=== PATIENT | female | born 1960 | race Caucasian/White ===

== ENCOUNTER 2022-11-14 09:19 | Outpatient (CLI) | payer MEDICAID | END 2022-11-14 09:20 | disposition short-term general hospital (02) | LOC: EMS 09:19 | DX: R06.02 Shortness of breath (principal); I48.91 Unspecified atrial fibrillation; E11.65 Type 2 diabetes mellitus with hyperglycemia | CPT/HCPCS: A0425; A0427 ==

== ENCOUNTER 2025-05-04 16:06 | Inpatient (IN) ==
[2025-05-04] MEDS: HYDROmorphone 0.5 MG/0.5 ML SYRINGE IVP STA (16:32)
[2025-05-04 16:42] LABS: HCT - HEMATOCRIT 43.7 % (37.0-47.0); HGB - HEMOGLOBIN 14.4 g/dL (12.0-16.0); MEAN PLATELET VOLUME 8.7 fL (7.9-10.8); NRBC ABSOLUTE COUNT (AUTO) 0.00 x10^3/uL; NUCLEATED RED BLOOD CELLS AUTO 0.0 /100WBC; PLT - PLATELET COUNT 283 10^3/uL (130-450); RED CELL DISTRIBUTION WIDTH 13.8 % (12.0-15.0)
[2025-05-04 16:47] LABS: INR 1.2 (0.8-1.2); PT - PROTHROMBIN TIME 13.3 secs (9.9-12.6)
[2025-05-04 16:56] LABS: ALT ALANINE AMINOTRANSFERASE 26 IU/L (10-60); AST ASPARTATE AMINOTRANSFERASE 50 IU/L (10-42); BUN - BLOOD UREA NITROGEN 15 mg/dL (6-20); CARBON DIOXIDE - CO2 28 mmol/L (21-32); CREATININE 0.9 mg/dL (0.6-1.3); ETOH - ETHANOL < 10.0 mg/dL; GFR - MDRD 63 (>89)
[2025-05-04] MEDS: HYDROmorphone 1 MG/ML CARPUJECT IVP STA (17:27)
--- OUTSIDE RECORDS SUMMARY | 2025-05-04 17:29 | EXTERNAL MEDICAL SUMMARY RPT | Continuity of Care Document ---
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 Name Role Phone Devin Amaya Unavailable Unavailable Allergies and Intolerances date description facility reaction severity 2025-04-16 10:17:15 UNK [facility] (no reactio n) (no severity) Medications date description facility 2025-03-13 00:00 Clonazepam [facility] 2025-04-30 00:00 Magnesium Hydroxide [facility] 2025-02-15 00:00 Amiodarone [facility] 2025-04-29 00:00 Levothyroxine [facility] Problems date description facility 2025-04-10 09:42 Type 2 diabetes donald itus with diabetic neuropathy, [facility] 2025-04-10 09:42 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 [facility] 2025-04-10 11:16 Type 2 diabetes donald itus with diabetic neuropathy, [facility] 2025-04-10 11:16 jail (current) use of [facility] 2025-04-10 11:20 Type 2 diabetes donald itus with diabetic neuropathy, [facility] 2025-04-10 11:20 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 [facility] 2025-04-10 22:03 Type 2 diabetes donald itus with diabetic neuropathy, [facility] 2025-04-10 22:03 jail (current) use of [facility] Results/Labs test date facility value unit notes Result panel 1 Specimen collection (procedure) (no date) [facility] (missing) (missing) (missing) Result panel 2 Specimen collection (procedure) (no date) [facility] (missing) (missing) (missing) Result panel 3 Specimen collection (procedure) (no date) [facility] (missing) (missing) (missing) Result panel 4 Specimen collection (procedure) (no date) [facility] (missing) (missing) (missing) Result panel 5 Specimen collection (procedure) (no date) [facility] ([facility]) (missing) (missing) Result panel 6 Specimen collection (procedure) (no date) [facility] (missing) (missing) (missing) Result panel 7 Specimen collection (procedure) (no date) [facility] (missing) (missing) (missing) Result panel 8 Specimen collection (procedure) (no date) [facility] (missing) (missing) (missing) Result panel 9 Specimen collection (procedure) (no date) [facility] (missing) (missing) (missing) Result panel 10 Specimen collection (procedure) (no date) [facility] (missing) (missing) (missing) Result panel 11 Specimen collection (procedure) (no date) [facility] (missing) (missing) (missing) Result panel 12 Specimen collection (procedure) (no date) [facility] (missing) (missing) (missing) Result panel 13 Specimen collection (procedure) (no date) [facility] (missing) (missing) (missing) Result panel 14 Specimen collection (procedure) (no date) [facility] (missing) (missing) (missing) Result panel 15 Specimen collection (procedure) (no date) [facility] (missing) (missing) (missing) Result panel 16 Specimen collection (procedure) (no date) [facility] (missing) (missing) (missing) Result panel 17 Specimen collection (procedure) (no date) [facility] (missing) (missing) (missing) Result panel 18 Specimen collection (procedure) (no date) [facility] (missing) (missing) (missing) Result panel 19 Specimen collection (procedure) (no date) [facility] (missing) (missing) (missing) Result panel 20 Specimen collection (procedure) (no date) [facility] (missing) (missing) (missing) Result panel 21 Specimen collection (procedure) (no date) [facility] (missing) (missing) (missing) Result panel 22 Specimen collection (procedure) (no date) [facility] (missing) (missing) (missing) Result panel 23 Specimen collection (procedure) (no date) [facility] (missing) (missing) (missing) Result panel 24 Specimen collection (procedure) (no date) [facility] (missing) (missing) (missing) Result panel 25 Specimen collection (procedure) (no date) [facility] (missing) (missing) (missing) Result panel 26 Specimen collection (procedure) (no date) [facility] (missing) (missing) (missing) Result panel 27 Specimen collection (procedure) (no date) [facility] (missing) (missing) (missing) Result panel 28 Specimen collection (procedure) (no date) [facility] (missing) (missing) (missing) Result panel 29 Specimen collection (procedure) (no date) [facility] (missing) (missing) (missing) Result panel 30 Specimen collection (procedure) (no date) [facility] (missing) (missing) (missing) Result panel 31 Specimen collection (procedure) (no date) [facility] (missing) (missing) (missing) Result panel 32 Specimen collection (procedure) (no date) [facility] (missing) (missing) (missing) Result panel 33 Specimen collection (procedure) (no date) [facility] (missing) (missing) (missing) Result panel 34 Specimen collection (procedure) (no date) [facility] (missing) (missing) (missing) Result panel 35 Specimen collection (procedure) (no date) [facility] (missing) (missing) (missing) Result panel 36 Specimen collection (procedure) (no date) [facility] (missing) (missing) (missing) Result panel 37 Specimen collection (procedure) (no date) [facility] (missing) (missing) (missing) Result panel 38 Specimen collection (procedure) (no date) [facility] (missing) (missing) (missing) Result panel 39 Specimen collection (procedure) (no date) [facility] (missing) (missing) (missing) Result panel 40 Specimen collection (procedure) (no date) [facility] (missing) (missing) (missing) Result panel 41 Specimen collection (procedure) (no date) [facility] (missing) (missing) (missing) Result panel 42 Specimen collection (procedure) (no date) [facility] (missing) (missing) (missing) Result panel 43 Specimen collection (procedure) (no date) [facility] (missing) (missing) (missing) Result panel 44 Specimen collection (procedure) (no date) [facility] (missing) (missing) (missing) Result panel 45 Specimen collection (procedure) (no date) [facility] (missing) (missing) (missing) Result panel 46 Specimen collection (procedure) (no date) [facility] (missing) (missing) (missing) Result panel 47 Specimen collection (procedure) (no date) [facility] (missing) (missing) (missing) Result panel 48 Specimen collection (procedure) (no date) [facility] (missing) (missing) (missing) Result panel 49 Specimen collection (procedure) (no date) [facility] (missing) (missing) (missing) Result panel 50 Specimen collection (procedure) (no date) [facility] (missing) (missing) (missing) Result panel 51 Specimen collection (procedure) (no date) [facility] (missing) (missing) (missing) Result panel 52 Specimen collection (procedure) (no date) [facility] (missing) (missing) (missing) Result panel 53 Specimen collection (procedure) (no date) [facility] (missing) (missing) (missing) Result panel 54 Specimen collection (procedure) (no date) [facility] (missing) (missing) (missing) Result panel 55 Specimen collection (procedure) (no date) [facility] (missing) (missing) (missing) Result panel 56 Specimen collection (procedure) (no date) [facility] (missing) (missing) (missing) Result panel 57 Specimen collection (procedure) (no date) [facility] (missing) (missing) (missing) Result panel 58 Specimen collection (procedure) (no date) [facility] (missing) (missing) (missing) Result panel 59 Specimen collection (procedure) (no date) [facility] (missing) (missing) (missing) Result panel 60 Specimen collection (procedure) (no date) [facility] (missing) (missing) (missing) Result panel 61 Specimen collection (procedure) (no date) [facility] (missing) (missing) (missing) Result panel 62 Specimen collection (procedure) (no date) [facility] (missing) (missing) (missing) Result panel 63 Specimen collection (procedure) (no date) [facility] (missing) (missing) (missing) Result panel 64 Specimen collection (procedure) (no date) [facility] (missing) (missing) (missing) Result panel 65 Specimen collection (procedure) (no date) [facility] (missing) (missing) (missing) Result panel 66 Specimen collection (procedure) (no date) [facility] (missing) (missing) (missing) Result panel 67 Specimen collection (procedure) (no date) [facility] (missing) (missing) (missing) Result panel 68 Specimen collection (procedure) (no date) [facility] (missing) (missing) (missing) Result panel 69 Specimen collection (procedure) (no date) [facility] (missing) (missing) (missing) Result panel 70 Specimen collection (procedure) (no date) [facility] (missing) (missing) (missing) Result panel 71 Specimen collection (procedure) (no date) [facility] (missing) (missing) (missing) Result panel 72 Specimen collection (procedure) (no date) [facility] (missing) (missing) (missing) Result panel 73 Specimen collection (procedure) (no date) [facility] (missing) (missing) (missing) Result panel 74 Specimen collection (procedure) (no date) [facility] (missing) (missing) (missing) Result panel 75 Specimen collection (procedure) (no date) [facility] (missing) (missing) (missing) Result panel 76 Specimen collection (procedure) (no date) [facility] (missing) (missing) (missing) Result panel 77 Specimen collection (procedure) (no date) [facility] (missing) (missing) (missing) Result panel 78 Specimen collection (procedure) (no date) [facility] (missing) (missing) (missing) Result panel 79 Specimen collection (procedure) (no date) [facility] (missing) (missing) (missing) Result panel 80 Specimen collection (procedure) (no date) [facility] (missing) (missing) (missing) Result panel 81 Specimen collection (procedure) (no date) [facility] (missing) (missing) (missing) Result panel 82 Specimen collection (procedure) (no date) [facility] (missing) (missing) (missing) Result panel 83 Specimen collection (procedure) (no date) [facility] (missing) (missing) (missing) Result panel 84 Specimen collection (procedure) (no date) [facility] (missing) (missing) (missing) Result panel 85 Specimen collection (procedure) (no date) [facility] (missing) (missing) (missing) Result panel 86 Specimen collection (procedure) (no date) [facility] (missing) (missing) (missing) Result panel 87 Specimen collection (procedure) (no date) [facility] (missing) (missing) (missing) Result panel 88 Specimen collection (procedure) (no date) [facility] (missing) (missing) (missing) Result panel 89 Specimen collection (procedure) (no date) [facility] (missing) (missing) (missing) Result panel 90 Specimen collection (procedure) (no date) [facility] (missing) (missing) (missing) Result panel 91 Specimen collection (procedure) (no date) [facility] (missing) (missing) (missing) Result panel 92 Specimen collection (procedure) (no date) [facility] (missing) (missing) (missing) Result panel 93 Specimen collection (procedure) (no date) [facility] (missing) (missing) (missing) Result panel 94 Specimen collection (procedure) (no date) [facility] (missing) (missing) (missing) Result panel 95 Specimen collection (procedure) (no date) [facility] (missing) (missing) (missing) Result panel 96 Specimen collection (procedure) (no date) [facility] (missing) (missing) (missing) Result panel 97 Specimen collection (procedure) (no date) [facility] (missing) (missing) (missing) Result panel 98 Specimen collection (procedure) (no date) [facility] (missing) (missing) (missing) Result panel 99 Specimen collection (procedure) (no date) [facility] (missing) (missing) (missing) Result panel 100 Specimen collection (procedure) (no date) [facility] (missing) (missing) (missing) Result panel 101 Specimen collection (procedure) (no date) [facility] (missing) (missing) (missing) Result panel 102 Specimen collection (procedure) (no date) [facility] (missing) (missing) (missing) Result panel 103 Hemoglobin A1c percentage [facility]10 [facility] % (missing) Result panel 104 Hemoglobin A1c percentage 2025-04-10 08:49:07 [facility] 5.[facility] % (missing) Result panel 105 Hemoglobin A1C% w Est Avg Glu 2025-04-10 10:06 [facility] 5.9 % Hemoglobin A1c Estim ated Average Glucose (mg/dl) 5% 97 6% 126 7% 154 8% 183 9% 212 10% 240 11% 269 12% 298 Individuals with Hemoglobin (Hb)A1c between 5.7-6.4% are at increased risk for diabetes. Result panel 106 ETOH - ETHANOL 2025-05-04 16:37 [facility] < 10.0 mg/dl Blood Alcohol Levels Level Sporadic Drinkers Chronic drinkers 100 mg/dL Legally intoxicated* Minimal signs 200-250 mg/dL Alertness lost, Effort needed to becoming lethargic maintain emotional and motor control 300-350 mg/dL Stupor to coma Drowsy and slow >500 mg/dL Possible Coma *The legal definition of intoxication varies. This assy is for medical decision making only. As of January 2023 testing method has changed, this may include reference ranges. NUCLEATED RED BLOOD CELLS AUTO 2025-05-04 16:37 [facility] 0.0 /100wbc (missing) NRBC ABSOLUTE COUNT (AUTO) 2025-05-04 16:37 [facility] 0.00 x10 3/ul (missing) BASOPHILS # (AUTO) 2025-05-04 16:37 [facility] 0.1 10 3/ul (missing) EOSINOPHILS # (AUTO) 2025-05-04 16:37 [facility] 0.2 10 3/ul (missing) MONOCYTES # (AUTO) 2025-05-04 16:37 [facility] 0.7 10 3/ul (missing) BILIRUBIN,TOTAL 2025-05-04 16:37 [facility] 0.7 mg/dl As of January 2023 test ing method has changed, this may include reference ranges. CREATININE 2025-05-04 16:37 [facility] 0.9 mg/dl As of January 2023 test ing method has changed, this may include reference ranges. INR 2025-05-04 16:37 [facility] 1.2 (missing ) Oral Anticoagulant Indication INR range Venous Thrombosis, P.E. 2.0 - 3.0 Mechanical Valve 2.5 - 3.5 LYMPHOCYTES # (AUTO) 2025-05-04 16:37 [facility] 1.3 10 3/ul (missing) MAGNESIUM 2025-05-04 16:37 [facility] 1.7 mg/dl As of January 2023 test ing method has changed, this may include reference ranges. GLUCOSE 2025-05-04 16:37 [facility] 127 mg/dl As of January 2023 test ing method has changed, this may include reference ranges. PT - PROTHROMBIN TIME 2025-05-04 16:37 [facility] 13.3 secs Y PRADAXA RED CELL DISTRIBUTION WIDTH 2025-05-04 16:37 [facility] 13.8 % (missing) SODIUM 2025-05-04 16:37 [facility] 130 mmol/l (missing) HGB - HEMOGLOBIN 2025-05-04 16:[address] [place] [address] 14.4 g/dl (missing) BUN - BLOOD UREA NITROGEN 2025-05-04 16:[address] [place] [address] 15 mg/dl As of January 2023 test ing method has changed, this may include reference ranges. ALBUMIN/GLOBULIN RATIO 2025-05-04 16:[address] [place] [address] 2.0 (missing ) (missing) GLOBULIN 2025-05-04 16:[address] [place] [address] 2.1 g/dl (missing) ALT ALANINE AMINOTRANSFERASE 2025-05-04 16:[address] [place] [address] 26 iu/l As of January 2023 test ing method has changed, this may include reference ranges. CARBON DIOXIDE - CO2 2025-05-04 16:[address] [place] [address] 28 mmol/l As of January 2023 test ing method has changed, this may include reference ranges. PLT - PLATELET COUNT 2025-05-04 16:[address] [place] [address] 283 10 3/ul (missing) NEUTROPHILS # (AUTO) 2025-05-04 16:[address] [place] [address] 3.8 10 3/ul (missing) MEAN CORPUSCULAR HEMOGLOBIN 2025-05-04 16:[address] [place] [address] 30.7 pg (missing) MEAN CORPUSCULAR HGB CONC 2025-05-04 16:[address] [place] [address] 33.0 g/dl (missing) POTASSIUM 2025-05-04 16:[address] [place] [address] 4.0 mmol/l As of January 2023 test ing method has changed, this may include reference ranges. ALBUMIN 2025-05-04 16:[address] [place] [address] 4.2 g/dl As of January 2023 test ing method has changed, this may include reference ranges. RED BLOOD COUNT 2025-05-04 16:[address] [place] [address] 4.69 10 6/ul (missing) HCT - HEMATOCRIT 2025-05-04 16:[address] [place] [address] 43.7 % (missing) AST ASPARTATE AMINOTRANSFERASE 2025-05-04 16:[address] [place] [address] 50 iu/l As of January 2023 test ing method has changed, this may include reference ranges. WHITE BLOOD COUNT 2025-05-04 16:[address] [place] [address] 6.1 x10 3/ul (missing) TOTAL PROTEIN 2025-05-04 16:[address] [place] [address] 6.3 g/dl As of January 2023 test ing method has changed, this may include reference ranges. GFR - MDRD 2025-05-04 16:[address] [place] [address] 63 (missing ) The IDMS-traceable MDRD Study Equation has been validated extensively in and populations between the ages of 18 and 70 with impaired kidney function (eGFR < 60 mL/min/1.73m2) and has shown good performance for patients with all common causes of kidney disease. Although this equation has not been validated for patients older than 70, an MDRD-derived eGFR may still be a useful tool for providers caring for patients older than 70. References: http://www.nkdep.nih.gov /lab-evaluation/gfr/crea tinine-stand ardization, last updated September 2011. ALKALINE PHOSPHATASE 2025-05-04 16:[address] [place] [address] 66 iu/l As of January 2023 test ing method has changed, this may include reference ranges. ANION GAP 2025-05-04 16:[address] [place] [address] 8.0 (missing ) (missing) TROPONIN I HIGH SENSITIVITY 2025-05-04 16:[address] [place] [address] 8.6 ng/l A HIGH SENSITIVITY TROPONIN result of >= 14.9 ng/L for females is considered POSITIVE. A HIGH SENSITIVITY TROPONIN result of >= 19.8 ng/L for males is considered POSITIVE. A HIGH SENSITIVITY TROPONIN result of >= 17.9 ng/L for unspecified is considered POSITIVE. MEAN PLATELET VOLUME 2025-05-04 16:[address] [place] [address] 8.7 fl (missing) CALCIUM 2025-05-04 :[address] [place] [address] 9.3 mg/dl As of January 2023 test ing method has changed, this may include reference ranges. MEAN CORPUSCULAR VOLUME 2025-05-04 16:[address] [place] [address] 93.2 fl (missing) CHLORIDE 2025-05-04 :[address] [place] [address] 94 mmol/l As of January 2023 test ing method has changed, this may include reference ranges. Social History date description facility 2025-04-16 00:00 Never smoked tobacco (finding) [facility] Vital Signs date measurement value units 2025-04-16 00:00 BMI 22.7 kg/m2 2025-04-16 00:00 BP_diastolic 84 mmHg 2025-04-16 00:00 BP_systolic 138 mmHg 2025-04-16 00:00 heart_rate 53 /min 2025-04-16 00:00 height_metric 177.8 cm 2025-04-16 00:00 o2_saturation 97 % 2025-04-16 00:00 temperature_standard 98.2 F 2025-04-16 00:00 weight_metric 71.83 kg
[2025-05-04 17:31] LABS: B. PARAPERTUSSIS- RESP PCR PAN NOT DETECTED; B. PERTUSSIS- RESP PCR PANEL NOT DETECTED; C. PNEUMONIAE- RESP PCR PANEL NOT DETECTED; CORONAVIRUS 229E-RESP PCR NOT DETECTED; CORONAVIRUS HKU1-RESP PCR NOT DETECTED; CORONAVIRUS NL63-RESP PCR NOT DETECTED; CORONAVIRUS OC43-RESP PCR NOT DETECTED; HUMAN METAPNEUMOVIRUS NOT DETECTED; INFLUENZA A- RESP PCR PANEL NOT DETECTED; INFLUENZA B - RESP PCR PANEL NOT DETECTED; M. PNEUMONIAE- RESP PCR PANEL NOT DETECTED; PARAINFLUENZA VIRUS 1 NOT DETECTED; PARAINFLUENZA VIRUS 2 NOT DETECTED; PARAINFLUENZA VIRUS 4 NOT DETECTED; RHINOVIRUS/ENTEROVIRUS NOT DETECTED; RSV- RESP PCR PANEL NOT DETECTED; SARS-CoV-2 -RESP PCR PANEL NOT DETECTED
--- NOTE | 2025-05-04 17:32 | XRAY Report ---
PROCEDURE: XR Chest 1V INDICATIONS: syncope TECHNIQUE: One view of the chest was acquired. COMPARISON: None. FINDINGS: Surgical changes and devices: None. Lungs and pleura: No pleural effusions or pneumothorax. No consolidation. Mediastinum: Mediastinal contours appear normal. Heart size is normal. Bones and chest wall: No suspicious bony lesions. Overlying soft tissues appear unremarkable. IMPRESSION: No acute cardiopulmonary process. Reviewed by: Aaron Alonso MD on 05/04/2025 4:29 PM AKDT Approved by: Aaron Alonso MD on 05/04/2025 4:29 PM AKDT Station ID: [id number]
--- NOTE | 2025-05-04 17:35 | CT Report ---
PROCEDURE: CT Cervical Spine WO INDICATIONS: neck pain after fall TECHNIQUE: Noncontrast images acquired from the skull base to the T4 level. Sagittal and coronal reformats were then constructed. For radiation dose reduction, the following was used: automated exposure control, adjustment of mA and/or kV according to patient size. COMPARISON: None. FINDINGS: Image quality: Excellent. Bones: No fractures or dislocations. Visualized superior ribs are intact. Soft tissues: Prevertebral soft tissues are normal in thickness. No paravertebral hematomas. No apical pneumothoraces. IMPRESSION: No acute, displaced fracture or traumatic subluxation. Reviewed by: Aaron Alonso MD on 05/04/2025 4:31 PM ALFRED Approved by: Aaron Alonso MD on 05/04/2025 4:31 PM ALFRED Station ID: [id number]
--- NOTE | 2025-05-04 17:36 | CT Report ---
PROCEDURE: CT Head WO INDICATIONS: head injury posterior fall TECHNIQUE: CT of the head was performed, without intravenous contrast. Reformats: Coronal and sagittal. For radiation dose reduction, the following was used: automated exposure control, adjustment of mA and/or kV according to patient size. COMPARISON: None. FINDINGS: Image quality: Diagnostic. CSF spaces: Basal cisterns are patent. No extra-axial fluid collections. Ventricles are normal in size and shape. Brain: No midline shift. No intracranial mass effect or hemorrhage. Uribe- white matter interface is normal. Skull and face: Calvarium and visualized facial bones are intact, without suspicious lesions. Sinuses: Visualized sinuses and mastoids are clear. IMPRESSION: No acute intracranial pathology. Reviewed by: Aaron Alonso MD on 05/04/2025 4:33 PM ALFRED Approved by: Aaron Alonso MD on 05/04/2025 4:33 PM ALFRED Station ID: [id number]
--- NOTE | 2025-05-04 17:37 | CT Report ---
PROCEDURE: CT Pelvis WO INDICATIONS: right hip pain TECHNIQUE: Noncontrast CT was obtained through the bony pelvis, with coronal and sagittal reformatting. For radiation dose reduction, the following was used: automated exposure control, adjustment of mA and/or kV according to patient size. COMPARISON: None. FINDINGS: Image quality: Excellent. Bones: Subcapsular fracture of the right femoral neck. Very mild fracture impaction. Soft tissues: Small right hip joint effusion. Intra-abdominal contents are unremarkable. No extraperitoneal hematoma. IMPRESSION: Subcapsular fracture of the right femoral neck, with mild impaction. Reviewed by: Aaron Alonso MD on 05/04/2025 4:34 PM ALFRED Approved by: Aaron Alonso MD on 05/04/2025 4:34 PM ALFRED Station ID: [id number]
--- NOTE | 2025-05-04 17:39 | CT Report ---
PROCEDURE: CT Lumbar Spine WO INDICATIONS: lower back pain TECHNIQUE: Noncontrast images acquired from the T12 level to the sacrum. Sagittal and coronal reformats were constructed. For radiation dose reduction, the following was used: automated exposure control, adjustment of mA and/or kV according to patient size. COMPARISON: None. FINDINGS: Image quality: Excellent. Bones: There is normal bony alignment. No acute vertebral body compression fractures. No suspicious lytic or blastic bony lesions. Central spinal caliber is of normal overall caliber. No pars defects. There is multilevel degenerative disc disease and facet arthrosis, most prominent at L3-4 with moderate spinal canal narrowing. Soft tissues: No retroperitoneal masses or hematomas. Visualized aorta is normal in caliber. IMPRESSION: No displaced fracture or traumatic subluxation. Reviewed by: Aaron Alonso MD on 05/04/2025 4:35 PM ALFRED Approved by: Aaron Alonso MD on 05/04/2025 4:35 PM ALFRED Station ID: [id number]
--- NOTE | 2025-05-04 17:39 | ED Physician Documentation ---
History of Present Illness Stated complaint Stated Complaint: GLF Chief complaint Chief Complaint: General History obtained from History obtained from: Patient History of Present Illness Timing: Prior to arrival Additonal information Additional information: Patient is a very friendly 64-year-old female presenting to the emergency department after feeling dizzy falling and hitting her head she has a history of atrial fibrillation on Pradaxa EMS was called on her arrival as she was unable to get up and stand after secondary to right hip pain. She has no nausea or vomiting she she did lose consciousness unsure how long she was out for the patient has mild posterior headache and severe right hip pain she was given morphine via EMS but continues to have 10 out of 10 pain on arrival. No previous fractures or surgeries to her right hip. She is ANO x 3 on arrival GCS 15. Patient answering questions appropriately in the ED she does have a history of dizziness in the past and has followed up with her primary care doctor for it she notes this happens occasionally and usually she does not fall. Meds/Allgy Allergies Allergies Allergy/AdvReac Type Severity Reaction Status Date / Time No Known Drug Allergies Allergy Verified 05/04/25 16:14 PFSH Active Problems All Active Problems (Updated 05/04/25 @ 18:31 by Ana Jameson PA-C) Dizziness (Acute) Femoral neck fracture (Acute) Social History Social History Smoking Status: Unknown if ever smoked Do you feel safe in your home environment?: Yes History of physical, verbal, emotional, or financial abuse?: No Exam Exam Vital Signs: Vital Signs x48h Temp Pulse Resp BP Pulse Ox 05/04/25 17:50 36.5 C 47 L 16 156/75 H 98 05/04/25 16:11 36.4 C L 83 18 200/108 H 98 Results Vitals Vitals: Vital Signs - 24 hr 05/04/25 16:11 05/04/25 16:32 05/04/25 17:18 Temperature 36.4 C L Temperature Source Pulse Rate 83 Respiratory Rate 18 Blood Pressure 200/108 H O2 Saturation 98 O2 Source Room air Pain Intensity 10 10 9 05/04/25 17:27 05/04/25 17:50 Temperature 36.5 C Temperature Source Oral Pulse Rate 47 L Respiratory Rate 16 Blood Pressure 156/75 H O2 Saturation 98 O2 Source Room air Pain Intensity 9 4 Oxygen O2 Source Room air Labs Labs: Laboratory Tests 05/04/25 05/04/25 16:26 16:37 WBC 6.1 RBC 4.69 Hgb 14.4 Hct 43.7 MCV 93.2 MCH 30.7 MCHC 33.0 RDW 13.8 Plt Count 283 MPV 8.7 Neut # (Auto) 3.8 Lymph # (Auto) 1.3 L Lassen # (Auto) 0.7 Eos # (Auto) 0.2 Baso # (Auto) 0.1 Absolute Nucleated RBC 0.00 Nucleated RBC % 0.0 PT 13.3 H INR 1.2 Sodium 130 L Potassium 4.0 Chloride 94 L Carbon Dioxide 28 Anion Gap 8.0 BUN 15 Creatinine 0.9 Estimated GFR (MDRD) 63 L Glucose 127 H Calcium 9.3 Magnesium 1.7 Total Bilirubin 0.7 AST 50 H ALT 26 Alkaline Phosphatase 66 Troponin I High Sens 8.6 Total Protein 6.3 L Albumin 4.2 Globulin 2.1 Albumin/Globulin Ratio 2.0 Nasal Adenovirus (PCR) NOT DETECTED Nasal B. parapertussis DNA (PCR) NOT DETECTED Nasal Coronavir 229E PCR NOT DETECTED Nasal Coronavir HKU1 PCR NOT DETECTED Nasal Coronavir NL63 PCR NOT DETECTED Nasal Coronavir OC43 PCR NOT DETECTED Nasal Enterovir/Rhinovir PCR NOT DETECTED Nasal Influenza B PCR NOT DETECTED Nasal Influenza A PCR NOT DETECTED Nasal Parainfluen 1 PCR NOT DETECTED Nasal Parainfluen 2 PCR NOT DETECTED Nasal Parainfluen 3 PCR NOT DETECTED Nasal Parainfluen 4 PCR NOT DETECTED Nasal RSV (PCR) NOT DETECTED Nasal B.pertussis DNA PCR NOT DETECTED Nasal C.pneumoniae (PCR) NOT DETECTED Goyo Human Metapneumo PCR NOT DETECTED Nasal M.pneumoniae (PCR) NOT DETECTED Nasal SARS-CoV-2 (PCR) NOT DETECTED Ethyl Alcohol < 10.0 PD Medical Decision Making ED course Complexity details: reviewed old records and reviewed results ED course: Patient 64-year-old female presenting to the emergency department after fall landing on right hip she felt very dizzy prior to what sounds like a syncopal episode hitting the back of her head. She had a positive loss of consciousness and is on Pradaxa for history of atrial fibrillation. She has some posterior head pain and severe right hip pain 10 out of 10 despite receiving morphine by EMS it appears shortened but not inverted. She has some right knee pain back pain neck pain head pain and no previous injury to the bilateral hips. She has been following [facility] for the [facility] head neck lumbar and thoracic spine are all negative chest x-ray shows no signs of pneumonia or rib fracture CT pelvis concerning for subcondylar femoral neck fracture with impaction. She remains neurovascularly intact with sensation intact she is able to move bilateral ankles but has significant pain when attempting to move the knee. During examination patient complaining of right knee pain as well. X-ray of right knee shows no acute fracture discussed case with Dr. Wilson orthopedic provider who notes patient should remain n.p.o. hold blood thinners and he will see patient tomorrow possible surgery tomorrow but may need to be held due to history of Pradaxa use and atrial fibrillation. Patient admitted to hospitalist Dr. Sweeney who is agreeable with admission. Patient remains neurovascularly intact. Discharge Plan Discharge Patient Disposition: 66 [facility] DC/Xfer Condition: Stable Clinical Impression: Femoral neck fracture, Dizziness
--- NOTE | 2025-05-04 17:40 | CT Report ---
PROCEDURE: CT Thoracic Spine WO INDICATIONS: back pain after fall TECHNIQUE: Noncontrast images acquired through the region of interest in the thoracic spine. Sagittal and coronal reformats were then constructed. For radiation dose reduction, the following was used: automated exposure control, adjustment of mA and/or kV according to patient size. COMPARISON: None. FINDINGS: Image quality: Excellent. Bones: There is normal overall bony alignment. No acute vertebral body compression fractures. No suspicious sclerotic or lytic bony lesions. Central spinal canal is of normal overall caliber. Soft tissues: No paravertebral masses or hematomas. Visualized posteromedial lungs appear clear. IMPRESSION: No displaced fracture or traumatic subluxation. Reviewed by: Aaron Alonso MD on 05/04/2025 4:37 PM ALFRED Approved by: Aaron Alonso MD on 05/04/2025 4:37 PM AKROSEMARY Station ID: [id number]
[2025-05-04] MEDS: ONDANSETRON 4 MG/2 ML VIAL IVP STA (18:14)
--- NOTE | 2025-05-04 18:14 | HISTORY & PHYSICAL EXAMINATION ---
Chief Complaint Chief Complaint Chief Complaint: Dizziness, hip pain History of Present Illness Admitted From Admitted From:: Home History Obtained From History obtained from: Patient interview History of Present Illness HPI Comment/Other: 64-year-old female with history of atrial fibrillation on metoprolol and Pradaxa who presents with dizziness episodes leading to a fall. She reports that she has had several episodes of dizziness/fainting, where she will fall forward. This last episode, she became dizzy, lightheaded, and fell forward hitting her head and her hip. She was evaluated in the field by EMS, and she was unable to stand S/T right hip pain. Denies fever, chills, chest pain, dyspnea, palpitations, bowel/bladder abnormality. She reported a mild posterior headache and severe pain in her right hip she reports echocardiogram at the end of last year with no abnormalities. In the ER, CXR, CT spine, CT head, knee x-ray were all without abnormality. Pelvic CT showed subcapsular fracture of the right femoral neck with mild impaction. Orthopedics was consulted by the ER provider, with plans for OR tomorrow. Hospitalist was contacted for admission for femoral neck fracture Meds/Allgy Allergies Allergies Allergy/AdvReac Type Severity Reaction Status Date / Time No Known Drug Allergies Allergy Verified 05/04/25 16:14 PFSH Active Problems All Active Problems (Updated 05/04/25 @ 19:38 by Austen Gil DNP) Dizziness (Acute) Femoral neck fracture (Acute) Medical History Medical History (Updated 05/04/25 @ 19:38 by Austen Gil DNP) Atrial fibrillation Social History Social History (Updated 05/04/25 @ 18:33 by Ana Jameson PA-C) Smoking Status: Unknown if ever smoked Do you feel safe in your home environment?: Yes History of physical, verbal, emotional, or financial abuse?: No Review of Systems Status of ROS: 10 or more systems reviewed and unremarkable except as noted in history and below Exam Exam Vital Signs: Vital Signs x48h Temp Pulse Resp BP Pulse Ox 05/04/25 18:29 36.3 C L 47 L 16 153/75 H 92 05/04/25 17:50 36.5 C 47 L 16 156/75 H 98 05/04/25 16:11 36.4 C L 83 18 200/108 H 98 Constitutional normal general appearance and no apparent distress [facility] normocephalic and head/scalp atraumatic Eyes PERRL Chest inspection of chest normal and palpation of chest normal Respiratory breath sounds equal bilaterally, normal respiratory effort and clear to auscultation bilaterally Cardiovascular heart rate abnormal (bradycardic) and rhythm abnormal (irregular) Gastrointestinal abdomen normal to inspection and abdomen soft to palpation Extremities Pain in right hip. Leg lengths equal Neurology GCS 15 Psychiatry oriented x3 Skin skin color normal Conclusion/Plan Problem List (1) Femoral neck fracture: Plan: Fall due to episode of dizziness with right femoral neck fracture Ortho consulted by ER Plan for OR tomorrow N.p.o. after midnight Holding Pradaxa Tylenol 1 g 3 times daily scheduled Dilaudid 0.5 mg IV as needed (2) Dizziness: Plan: She describes dizziness/fainting episodes, where she feels lightheaded and then falls. She has history of atrial fibrillation. She reports an echo was performed at some point last year with no structural defect She is on twice daily metoprolol, and her heart rate at time of my interview was in the 40s. This is possibly due to beta-luisa use Holding beta-luisa for now, will trial lower dose when her heart rate recovers (3) Atrial fibrillation: Plan: Atrial fibrillation on metoprolol and Pradaxa Holding Pradaxa as she is planned for OR Her heart rate is 47, holding rate controlling meds for now Anticipate trialing lower dose as this could be contributing to her dizziness Plan Admit inpatient med floor DNR Her stepdaughter is her surrogate decision maker/DPOA Lab Results Lab results reviewed: Yes 05/04/25 16:37 05/04/25 16:37
--- OUTSIDE RECORDS SUMMARY | 2025-05-04 18:16 | EXTERNAL MEDICAL SUMMARY RPT | Continuity of Care Document ---
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 (no reactio n) (no severity) Medications date description facility 2025-03-13 00:[address] [facility] 2025-04-30 00:00 Magnesium Hydroxide [facility] 2025-02-15 00:[address] [facility] 2025-04-29 00:[address] 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 (missing) (missing) (missing) Result panel 2 Specimen collection (procedure) (no date) [facility] (missing) (missing) (missing) Result panel 3 Specimen collection (procedure) (no date) [facility] (missing) (missing) (missing) Result panel 4 Specimen collection (procedure) (no date) [facility] (missing) (missing) (missing) Result panel 5 Specimen collection (procedure) (no date) [facility] (missing) (missing) (missing) Result panel 6 Specimen collection (procedure) (no date) [facility] (missing) (missing) (missing) Result panel 7 Specimen collection (procedure) (no date) [facility] (missing) (missing) (missing) Result panel 8 Specimen collection (procedure) (no date) [facility] (missing) (missing) (missing) Result panel 9 Specimen collection (procedure) (no date) [facility] (missing) (missing) (missing) Result panel 10 Specimen collection (procedure) (no date) [facility] (missing) (missing) (missing) Result panel 11 Specimen collection (procedure) (no date) [facility] (missing) (missing) (missing) Result panel 12 Specimen collection (procedure) (no date) [facility] (missing) (missing) (missing) Result panel 13 Specimen collection (procedure) (no date) [facility] (missing) (missing) (missing) Result panel 14 Specimen collection (procedure) (no date) [facility] (missing) (missing) (missing) Result panel 15 Specimen collection (procedure) (no date) [facility] (missing) (missing) (missing) Result panel 16 Specimen collection (procedure) (no date) [facility] (missing) (missing) (missing) Result panel 17 Specimen collection (procedure) (no date) [facility] (missing) (missing) (missing) Result panel 18 Specimen collection (procedure) (no date) [facility] (missing) (missing) (missing) Result panel 19 Specimen collection (procedure) (no date) [facility] (missing) (missing) (missing) Result panel 20 Specimen collection (procedure) (no date) [facility] (missing) (missing) (missing) Result panel 21 Specimen collection (procedure) (no date) [facility] (missing) (missing) (missing) Result panel 22 Specimen collection (procedure) (no date) [facility] (missing) (missing) (missing) Result panel 23 Specimen collection (procedure) (no date) [facility] (missing) (missing) (missing) Result panel 24 Specimen collection (procedure) (no date) [facility] (missing) (missing) (missing) Result panel 25 Specimen collection (procedure) (no date) [facility] (missing) (missing) (missing) Result panel 26 Specimen collection (procedure) (no date) [facility] (missing) (missing) (missing) Result panel 27 Specimen collection (procedure) (no date) [facility] (missing) (missing) (missing) Result panel 28 Specimen collection (procedure) (no date) [facility] (missing) (missing) (missing) Result panel 29 Specimen collection (procedure) (no date) [facility] (missing) (missing) (missing) Result panel 30 Specimen collection (procedure) (no date) [facility] (missing) (missing) (missing) Result panel 31 Specimen collection (procedure) (no date) [facility] (missing) (missing) (missing) Result panel 32 Specimen collection (procedure) (no date) [facility] (missing) (missing) (missing) Result panel 33 Specimen collection (procedure) (no date) [facility] (missing) (missing) (missing) Result panel 34 Specimen collection (procedure) (no date) [facility] (missing) (missing) (missing) Result panel 35 Specimen collection (procedure) (no date) [facility] (missing) (missing) (missing) Result panel 36 Specimen collection (procedure) (no date) [facility] (missing) (missing) (missing) Result panel 37 Specimen collection (procedure) (no date) [facility] (missing) (missing) (missing) Result panel 38 Specimen collection (procedure) (no date) [facility] (missing) (missing) (missing) Result panel 39 Specimen collection (procedure) (no date) [facility] (missing) (missing) (missing) Result panel 40 Specimen collection (procedure) (no date) [facility] (missing) (missing) (missing) Result panel 41 Specimen collection (procedure) (no date) [facility] (missing) (missing) (missing) Result panel 42 Specimen collection (procedure) (no date) [facility] (missing) (missing) (missing) Result panel 43 Specimen collection (procedure) (no date) [facility] (missing) (missing) (missing) Result panel 44 Specimen collection (procedure) (no date) [facility] (missing) (missing) (missing) Result panel 45 Specimen collection (procedure) (no date) [facility] (missing) (missing) (missing) Result panel 46 Specimen collection (procedure) (no date) [facility] (missing) (missing) (missing) Result panel 47 Specimen collection (procedure) (no date) [facility] (missing) (missing) (missing) Result panel 48 Specimen collection (procedure) (no date) [facility] (missing) (missing) (missing) Result panel 49 Specimen collection (procedure) (no date) [facility] (missing) (missing) (missing) Result panel 50 Specimen collection (procedure) (no date) [facility] (missing) (missing) (missing) Result panel 51 Specimen collection (procedure) (no date) [facility] (missing) (missing) (missing) Result panel 52 Specimen collection (procedure) (no date) [facility] (missing) (missing) (missing) Result panel 53 Specimen collection (procedure) (no date) [facility] (missing) (missing) (missing) Result panel 54 Specimen collection (procedure) (no date) [facility] (missing) (missing) (missing) Result panel 55 Specimen collection (procedure) (no date) [facility] (missing) (missing) (missing) Result panel 56 Specimen collection (procedure) (no date) [facility] (missing) (missing) (missing) Result panel 57 Specimen collection (procedure) (no date) [facility] (missing) (missing) (missing) Result panel 58 Specimen collection (procedure) (no date) [facility] (missing) (missing) (missing) Result panel 59 Specimen collection (procedure) (no date) [facility] (missing) (missing) (missing) Result panel 60 Specimen collection (procedure) (no date) [facility] (missing) (missing) (missing) Result panel 61 Specimen collection (procedure) (no date) [facility] (missing) (missing) (missing) Result panel 62 Specimen collection (procedure) (no date) [facility] (missing) (missing) (missing) Result panel 63 Specimen collection (procedure) (no date) [facility] (missing) (missing) (missing) Result panel 64 Specimen collection (procedure) (no date) [facility] (missing) (missing) (missing) Result panel 65 Specimen collection (procedure) (no date) [facility] (missing) (missing) (missing) Result panel 66 Specimen collection (procedure) (no date) [facility] (missing) (missing) (missing) Result panel 67 Specimen collection (procedure) (no date) [facility] (missing) (missing) (missing) Result panel 68 Specimen collection (procedure) (no date) [facility] (missing) (missing) (missing) Result panel 69 Specimen collection (procedure) (no date) [facility] (missing) (missing) (missing) Result panel 70 Specimen collection (procedure) (no date) [facility] (missing) (missing) (missing) Result panel 71 Specimen collection (procedure) (no date) [facility] (missing) (missing) (missing) Result panel 72 Specimen collection (procedure) (no date) [facility] (missing) (missing) (missing) Result panel 73 Specimen collection (procedure) (no date) [facility] (missing) (missing) (missing) Result panel 74 Specimen collection (procedure) (no date) [facility] (missing) (missing) (missing) Result panel 75 Specimen collection (procedure) (no date) [facility] (missing) (missing) (missing) Result panel 76 Specimen collection (procedure) (no date) [facility] (missing) (missing) (missing) Result panel 77 Specimen collection (procedure) (no date) [facility] (missing) (missing) (missing) Result panel 78 Specimen collection (procedure) (no date) [facility] (missing) (missing) (missing) Result panel 79 Specimen collection (procedure) (no date) [facility] (missing) (missing) (missing) Result panel 80 Specimen collection (procedure) (no date) [facility] (missing) (missing) (missing) Result panel 81 Specimen collection (procedure) (no date) [facility] (missing) (missing) (missing) Result panel 82 Specimen collection (procedure) (no date) [facility] (missing) (missing) (missing) Result panel 83 Specimen collection (procedure) (no date) [facility] (missing) (missing) (missing) Result panel 84 Specimen collection (procedure) (no date) [facility] (missing) (missing) (missing) Result panel 85 Specimen collection (procedure) (no date) [facility] (missing) (missing) (missing) Result panel 86 Specimen collection (procedure) (no date) [facility] (missing) (missing) (missing) Result panel 87 Specimen collection (procedure) (no date) [facility] (missing) (missing) (missing) Result panel 88 Specimen collection (procedure) (no date) [facility] (missing) (missing) (missing) Result panel 89 Specimen collection (procedure) (no date) [facility] (missing) (missing) (missing) Result panel 90 Specimen collection (procedure) (no date) [facility] (missing) (missing) (missing) Result panel 91 Specimen collection (procedure) (no date) [facility] (missing) (missing) (missing) Result panel 92 Specimen collection (procedure) (no date) [facility] (missing) (missing) (missing) Result panel 93 Specimen collection (procedure) (no date) [facility] (missing) (missing) (missing) Result panel 94 Specimen collection (procedure) (no date) [facility] (missing) (missing) (missing) Result panel 95 Specimen collection (procedure) (no date) [facility] (missing) (missing) (missing) Result panel 96 Specimen collection (procedure) (no date) [facility] (missing) (missing) (missing) Result panel 97 Specimen collection (procedure) (no date) [facility] (missing) (missing) (missing) Result panel 98 Specimen collection (procedure) (no date) [facility] (missing) (missing) (missing) Result panel 99 Specimen collection (procedure) (no date) [facility] (missing) (missing) (missing) Result panel 100 Specimen collection (procedure) (no date) [facility] (missing) (missing) (missing) Result panel 101 Specimen collection (procedure) (no date) [facility] (missing) (missing) (missing) Result panel 102 Specimen collection (procedure) (no date) [facility] (missing) (missing) (missing) Result panel 103 Hemoglobin A1c percentage 2025-04-10 08:49:07 [facility] l 5.9 % (missing) Result panel 104 Hemoglobin A1c percentage 2025-04-10 08:49:07 [facility] l 5.9 % (missing) Result panel 105 Hemoglobin A1C% w Est Avg Glu 2025-04-10 10:06 [facility] 5.9 % Hemoglobin A1c Estim ated Average Glucose (mg/dl) 5% 97 6% 126 7% 154 8% 183 9% 212 10% 240 11% 269 12% 298 Individuals with Hemoglobin (Hb)A1c between 5.7-6.4% are at increased risk for diabetes. Result panel 106 SARS-CoV-2 -RESP PCR PANEL 2025-05-04 16:26 [facility] NOT DETECTED (missing) A negative test result for this test indicates that SARS-CoV-2 RNA was not present in the specimen above the limit of detection. Testing performed on the [employer] RP2.1 Panel, a multiplexed nucleic acid repiratory panel. Negative results do not preclude infection with SARS-CoV-2 virus and should not be the sole basis of a patient management decision. In some patients repeat testing at various time points may be necessary for virus detection. False-negative results may arise from improper sample collection, degradation of viral RNA during shipping or storage, the presence of PCR inhibitors, and/or mutation in the SARS-CoV-2 virus. INFLUENZA A- RESP PCR PANEL 2025-05-04: [facility] NOT DETECTED (missing) Influenza A including subtypes H1, H3, and H1-2009 not detected by the [employer] RP2.1 Panel, a multiplexed nucleic acid test intended for the simultaneous qualitative detection and differentiation of nucleic acids from multiple viral and bacterial respiratory organisms. B. PARAPERTUSSIS- RESP PCR [place] 2025-05-04:[address] [place] [address] NOT DETECTED (missing) Negative results for this organism do not preclude infection with this organism and may require additional laboratory testing (e.g., bacterial and viral culture, immunofluorescence , and radiography) when evaluating a patient with possible respiratory tract infection. B. PERTUSSIS- RESP PCR PANEL 2025-05-04:[address] [place] [address] NOT DETECTED (missing) Negative results for this organism do not preclude infection with this organism and may require additional laboratory testing (e.g., bacterial and viral culture, immunofluorescence , and radiography) when evaluating a patient with possible respiratory tract infection. C. PNEUMONIAE- RESP PCR PANEL 2025-05-04: [facility] NOT DETECTED (missing) Negative results for this organism do not preclude infection with this organism and may require additional laboratory testing (e.g., bacterial and viral culture, immunofluorescence , and radiography) when evaluating a patient with possible respiratory tract infection. M. PNEUMONIAE- RESP PCR PANEL 2025-05-04: [facility] NOT DETECTED (missing) Negative results for this organism do not preclude infection with this organism and may require additional laboratory testing (e.g., bacterial and viral culture, immunofluorescence , and radiography) when evaluating a patient with possible respiratory tract infection. CORONAVIRUS 229E-RESP PCR 2025-05-04:[address] [place] [address] NOT DETECTED (missing) Negative results in the setting ofa respiratory illness may be due to infection with pathogens not detected by this test, or lower respiratory tract infection that may not be detected by nasopharyngeal specimen. CORONAVIRUS HKU1-RESP PCR 2025-05-04: [facility] NOT DETECTED (missing) Negative results in the setting ofa respiratory illness may be due to infection with pathogens not detected by this test, or lower respiratory tract infection that may not be detected by nasopharyngeal specimen. CORONAVIRUS CD20-BVFR PCR 2025-05-04 16:26 [facility] NOT DETECTED (missing) Negative results in the setting ofa respiratory illness may be due to infection with pathogens not detected by this test, or lower respiratory tract infection that may not be detected by nasopharyngeal specimen. CORONAVIRUS XA92-NRVS PCR 2025-05-04 16:26 [facility] NOT DETECTED (missing) Negative results in the setting ofa respiratory illness may be due to infection with pathogens not detected by this test, or lower respiratory tract infection that may not be detected by nasopharyngeal specimen. HUMAN METAPNEUMOVIRUS 2025-05-04 16: [facility] NOT DETECTED (missing) Negative results in the setting ofa respiratory illness may be due to infection with pathogens not detected by this test, or lower respiratory tract infection that may not be detected by nasopharyngeal specimen. INFLUENZA B - RESP PCR PANEL 2025-05-04 16: [facility] NOT DETECTED (missing) Negative results in the setting ofa respiratory illness may be due to infection with pathogens not detected by this test, or lower respiratory tract infection that may not be detected by nasopharyngeal specimen. PARAINFLUENZA VIRUS 1 2025-05-04 16:26 [facility] NOT DETECTED (missing) Negative results in the setting ofa respiratory illness may be due to infection with pathogens not detected by this test, or lower respiratory tract infection that may not be detected by nasopharyngeal specimen. PARAINFLUENZA VIRUS 2 2025-05-04: [facility] NOT DETECTED (missing) Negative results in the setting ofa respiratory illness may be due to infection with pathogens not detected by this test, or lower respiratory tract infection that may not be detected by nasopharyngeal specimen. PARAINFLUENZA VIRUS 3 2025-05-04 16: [facility] NOT DETECTED (missing) Negative results in the setting ofa respiratory illness may be due to infection with pathogens not detected by this test, or lower respiratory tract infection that may not be detected by nasopharyngeal specimen. PARAINFLUENZA VIRUS 4 2025-05-04 16: [facility] NOT DETECTED (missing) Negative results in the setting ofa respiratory illness may be due to infection with pathogens not detected by this test, or lower respiratory tract infection that may not be detected by nasopharyngeal specimen. RHINOVIRUS/ENTEROVI CARLOS 2025-05-04 16:26 [facility] NOT DETECTED (missing) Negative results in the setting ofa respiratory illness may be due to infection with pathogens not detected by this test, or lower respiratory tract infection that may not be detected by nasopharyngeal specimen. RSV- RESP PCR PANEL 2025-05-04 16:26 [facility] NOT DETECTED (missing) Negative results in the setting ofa respiratory illness may be due to infection with pathogens not detected by this test, or lower respiratory tract infection that may not be detected by nasopharyngeal specimen. ADENOVIRUS - RESP PCR PANEL 2025-05-04 16:26 [facility] NOT DETECTED (missing) Y Negative results in the setting ofa respiratory illness may be due to infection with pathogens not detected by this test, or lower respiratory tract infection that may not be detected by nasopharyngeal specimen. Result panel 107 ETOH - ETHANOL 2025-05-04 16:37 [facility] < 10.0 mg/dl Blood Alcohol Levels Level [...] NUCLEATED RED BLOOD CELLS AUTO 2025-05-04 16:37 [facility] 0.0 /100wbc (missing) NRBC ABSOLUTE COUNT (AUTO) 2025-05-04 16:[address] [place] [address] 0.00 x10 3/ul (missing) BASOPHILS # (AUTO) 2025-05-04 16:[address] [place] [address] 0.1 10 3/ul (missing) EOSINOPHILS # (AUTO) 2025-05-04 16:[address] [place] [address] 0.2 10 3/ul (missing) MONOCYTES # (AUTO) 2025-05-04 16:[address] [place] [address] 0.7 10 3/ul (missing) BILIRUBIN,TOTAL 2025-05-04 16:37 [facility] 0.7 mg/dl As of January 2023 test ing method has changed, this may include reference ranges. CREATININE 2025-05-04 16:37 [facility] 0.9 mg/dl As of January 2023 test ing method has changed, this may include reference ranges. INR 2025-05-04 16:37 [facility] 1.2 (missing ) Oral Anticoagulant Indication INR range Venous Thrombosis, P.E. 2.0 - 3.0 Mechanical Valve 2.5 - 3.5 LYMPHOCYTES # (AUTO) 2025-05-04 16:37 [facility] 1.3 10 3/ul (missing) MAGNESIUM 2025-05-04 16:37 [facility] 1.7 mg/dl As of January 2023 test ing method has changed, this may include reference ranges. GLUCOSE 2025-05-04 16:37 [facility] 127 mg/dl As of January 2023 test ing method has changed, this may include reference ranges. PT - PROTHROMBIN TIME 2025-05-04 16:37 [facility] 13.3 secs Y PRADAXA RED CELL DISTRIBUTION WIDTH 2025-05-04 16:37 [facility] 13.8 % (missing) SODIUM 2025-05-04 16:37 [facility] 130 mmol/l (missing) HGB - HEMOGLOBIN 2025-05-04 16:37 [facility] 14.4 g/dl (missing) BUN - BLOOD UREA NITROGEN 2025-05-04 16:37 [facility] 15 mg/dl As of January 2023 test ing method has changed, this may include reference ranges. ALBUMIN/GLOBULIN RATIO 2025-05-04 16:37 [facility] 2.0 (missing ) (missing) GLOBULIN 2025-05-04 16:37 [facility] 2.1 g/dl (missing) ALT ALANINE AMINOTRANSFERASE 2025-05-04 16:37 [facility] 26 iu/l As of January 2023 test ing method has changed, this may include reference ranges. CARBON DIOXIDE - CO2 2025-05-04 16:37 [facility] 28 mmol/l As of January 2023 test ing method has changed, this may include reference ranges. PLT - PLATELET COUNT 2025-05-04 16:37 [facility] 283 10 3/ul (missing) NEUTROPHILS # (AUTO) 2025-05-04 16:37 [facility] 3.8 10 3/ul (missing) MEAN CORPUSCULAR HEMOGLOBIN 2025-05-04 16:37 [facility] 30.7 pg (missing) MEAN CORPUSCULAR HGB CONC 2025-05-04 16:37 [facility] 33.0 g/dl (missing) POTASSIUM 2025-05-04 16:[address] [place] [address] 4.0 mmol/l As of January 2023 test ing method has changed, this may include reference ranges. ALBUMIN 2025-05-04 16:[address] [place] [address] 4.2 g/dl As of January 2023 test ing method has changed, this may include reference ranges. RED BLOOD COUNT 2025-05-04 16:37 [facility] 4.69 10 6/ul (missing) HCT - HEMATOCRIT 2025-05-04 16:[address] [place] [address] 43.7 % (missing) AST ASPARTATE AMINOTRANSFERASE 2025-05-04 16:[address] [place] [address] 50 iu/l As of January 2023 test ing method has changed, this may include reference ranges. WHITE BLOOD COUNT 2025-05-04 16:[address] [place] [address] 6.1 x10 3/ul (missing) TOTAL PROTEIN 2025-05-04 16:[address] [place] [address] 6.3 g/dl As of January 2023 test ing method has changed, this may include reference ranges. GFR - MDRD 2025-05-04 16:[address] [place] [address] 63 (missing ) The IDMS-traceable MDRD Study [...] last updated September 2011. ALKALINE PHOSPHATASE 2025-05-04 16:[address] [place] [address] 66 iu/l As of January 2023 test ing method has changed, this may include reference ranges. ANION GAP 2025-05-04 16:[address] [place] [address] 8.0 (missing ) (missing) TROPONIN I HIGH SENSITIVITY 2025-05-04 16:[address] [place] [address] 8.6 ng/l A HIGH SENSITIVITY TROPONIN result of >= 14.9 ng/L for females is considered POSITIVE. A HIGH SENSITIVITY TROPONIN result of >= 19.8 ng/L for males is considered POSITIVE. A HIGH SENSITIVITY TROPONIN result of >= 17.9 ng/L for unspecified is considered POSITIVE. MEAN PLATELET VOLUME 2025-05-04 :[address] [place] [address] 8.7 fl (missing) CALCIUM 2025-05-04 :[address] [place] [address] 9.3 mg/dl As of January 2023 test ing method has changed, this may include reference ranges. MEAN CORPUSCULAR VOLUME 2025-05-04 16:[address] [place] [address] 93.2 fl (missing) CHLORIDE 2025-05-04 :[address] [place] [address] 94 mmol/l As of January 2023 test ing method has changed, this may include reference ranges. Social History date description facility 2025-04-16 00:00 Never smoked tobacco (finding) [facility] Vital Signs date measurement value units 2025-04-16 00:00 BMI 22.7 kg/m2 2025-04-16 00:00 BP_diastolic 84 mmHg 2025-04-16 00:00 BP_systolic 138 mmHg 2025-04-16 00:00 heart_rate 53 /min 2025-04-16 00:00 height_metric 177.8 cm 2025-04-16 00:00 o2_saturation 97 % 2025-04-16 00:00 temperature_standard 98.2 F 2025-04-16 00:00 weight_metric 71.83 kg
--- NOTE | 2025-05-04 18:23 | XRAY Report ---
PROCEDURE: XR Knee 4+V RT INDICATIONS: right knee pain TECHNIQUE: 4 views of the right knee(s) were acquired. COMPARISON: None. FINDINGS: Bones: No fractures or dislocations. No suspicious bony lesions. Soft tissues: Small knee joint effusion. No suspicious soft tissue calcifications or masses. IMPRESSION: No acute bony abnormality. Reviewed by: Aaron Alonso MD on 05/04/2025 5:20 PM AKROSEMARY Approved by: Aaron Alonso MD on 05/04/2025 5:20 PM AKROSEMARY Station ID: [id number]
--- OUTSIDE RECORDS SUMMARY | 2025-05-04 18:33 | EXTERNAL MEDICAL SUMMARY RPT | Continuity of Care Document ---
Author Organization [facility] Address [address] [place] [id number] Phone Care Team Providers Care Edge Setter Name Role Phone Devin Amaya Unavailable Unavailable Allergies and Intolerances date description facility reaction severity 2025-04-16 10:17:15 UNK [facility] (no reactio n) (no severity) Medications date description facility 2025-03-13 00:00 Clonazepam [facility] 2025-04-30 00:00 Magnesium Hydroxide [facility] 2025-02-15 00:00 Amiodarone [facility] 2025-04-29 00:00 Levothyroxine [facility] Problems date description facility 2025-04-10 09:42 Type 2 diabetes donald itus with diabetic neuropathy, [facility] 2025-04-10 09:42 roasterman (current) use of [facility] 2025-04-10 11:16 Type 2 diabetes donald itus with diabetic neuropathy, [facility] 2025-04-10 11:16 long-term (current) use of [facility] 2025-04-10 11:20 Type 2 diabetes donald itus with diabetic neuropathy, [facility] 2025-04-10 11:20 roasterman (current) use of [facility] 2025-04-10 22:03 Type 2 diabetes donald itus with diabetic neuropathy, [facility] 2025-04-10 22:03 long-term (current) use of [facility] 2025-05-04 18:13 [facility] 2025-05-04 18:13 Fracture of unspecif ied part of neck of unspecified femur, initial encounter for closed fracture [facility] Results/Labs test date facility value unit notes Result panel 1 Specimen collection (procedure) (no date) [facility] (missing) (missing) (missing) Result panel 2 Specimen collection (procedure) (no date) [facility] (missing) (missing) (missing) Result panel 3 Specimen collection (procedure) (no date) [facility] (missing) (missing) (missing) Result panel 4 Specimen collection (procedure) (no date) [facility] (missing) (missing) (missing) Result panel 5 Specimen collection (procedure) (no date) [facility] (missing) (missing) (missing) Result panel 6 Specimen collection (procedure) (no date) [facility] (missing) (missing) (missing) Result panel 7 Specimen collection (procedure) (no date) [facility] (missing) (missing) (missing) Result panel 8 Specimen collection (procedure) (no date) [facility] (missing) (missing) (missing) Result panel 9 Specimen collection (procedure) (no date) [facility] (missing) (missing) (missing) Result panel 10 Specimen collection (procedure) (no date) [facility] (missing) (missing) (missing) Result panel 11 Specimen collection (procedure) (no date) [facility] (missing) (missing) (missing) Result panel 12 Specimen collection (procedure) (no date) [facility] (missing) (missing) (missing) Result panel 13 Specimen collection (procedure) (no date) [facility] (missing) (missing) (missing) Result panel 14 Specimen collection (procedure) (no date) [facility] (missing) (missing) (missing) Result panel 15 Specimen collection (procedure) (no date) [facility] (missing) (missing) (missing) Result panel 16 Specimen collection (procedure) (no date) [facility] (missing) (missing) (missing) Result panel 17 Specimen collection (procedure) (no date) [facility] (missing) (missing) (missing) Result panel 18 Specimen collection (procedure) (no date) [facility] (missing) (missing) (missing) Result panel 19 Specimen collection (procedure) (no date) [facility] (missing) (missing) (missing) Result panel 20 Specimen collection (procedure) (no date) [facility] (missing) (missing) (missing) Result panel 21 Specimen collection (procedure) (no date) [facility] (missing) (missing) (missing) Result panel 22 Specimen collection (procedure) (no date) [facility] (missing) (missing) (missing) Result panel 23 Specimen collection (procedure) (no date) [facility] (missing) (missing) (missing) Result panel 24 Specimen collection (procedure) (no date) [facility] (missing) (missing) (missing) Result panel 25 Specimen collection (procedure) (no date) [facility] (missing) (missing) (missing) Result panel 26 Specimen collection (procedure) (no date) [facility] (missing) (missing) (missing) Result panel 27 Specimen collection (procedure) (no date) [facility] (missing) (missing) (missing) Result panel 28 Specimen collection (procedure) (no date) [facility] (missing) (missing) (missing) Result panel 29 Specimen collection (procedure) (no date) [facility] (missing) (missing) (missing) Result panel 30 Specimen collection (procedure) (no date) [facility] (missing) (missing) (missing) Result panel 31 Specimen collection (procedure) (no date) [facility] (missing) (missing) (missing) Result panel 32 Specimen collection (procedure) (no date) [facility] (missing) (missing) (missing) Result panel 33 Specimen collection (procedure) (no date) [facility] (missing) (missing) (missing) Result panel 34 Specimen collection (procedure) (no date) [facility] (missing) (missing) (missing) Result panel 35 Specimen collection (procedure) (no date) [facility] (missing) (missing) (missing) Result panel 36 Specimen collection (procedure) (no date) [facility] (missing) (missing) (missing) Result panel 37 Specimen collection (procedure) (no date) [facility] (missing) (missing) (missing) Result panel 38 Specimen collection (procedure) (no date) [facility] (missing) (missing) (missing) Result panel 39 Specimen collection (procedure) (no date) [facility] (missing) (missing) (missing) Result panel 40 Specimen collection (procedure) (no date) [facility] (missing) (missing) (missing) Result panel 41 Specimen collection (procedure) (no date) [facility] (missing) (missing) (missing) Result panel 42 Specimen collection (procedure) (no date) [facility] (missing) (missing) (missing) Result panel 43 Specimen collection (procedure) (no date) [facility] (missing) (missing) (missing) Result panel 44 Specimen collection (procedure) (no date) [facility] (missing) (missing) (missing) Result panel 45 Specimen collection (procedure) (no date) [facility] (missing) (missing) (missing) Result panel 46 Specimen collection (procedure) (no date) [facility] (missing) (missing) (missing) Result panel 47 Specimen collection (procedure) (no date) [facility] (missing) (missing) (missing) Result panel 48 Specimen collection (procedure) (no date) [facility] (missing) (missing) (missing) Result panel 49 Specimen collection (procedure) (no date) [facility] (missing) (missing) (missing) Result panel 50 Specimen collection (procedure) (no date) [facility] (missing) (missing) (missing) Result panel 51 Specimen collection (procedure) (no date) [facility] (missing) (missing) (missing) Result panel 52 Specimen collection (procedure) (no date) [facility] (missing) (missing) (missing) Result panel 53 Specimen collection (procedure) (no date) [facility] (missing) (missing) (missing) Result panel 54 Specimen collection (procedure) (no date) [facility] (missing) (missing) (missing) Result panel 55 Specimen collection (procedure) (no date) [facility] (missing) (missing) (missing) Result panel 56 Specimen collection (procedure) (no date) [facility] (missing) (missing) (missing) Result panel 57 Specimen collection (procedure) (no date) [facility] (missing) (missing) (missing) Result panel 58 Specimen collection (procedure) (no date) [facility] (missing) (missing) (missing) Result panel 59 Specimen collection (procedure) (no date) [facility] (missing) (missing) (missing) Result panel 60 Specimen collection (procedure) (no date) [facility] (missing) (missing) (missing) Result panel 61 Specimen collection (procedure) (no date) [facility] (missing) (missing) (missing) Result panel 62 Specimen collection (procedure) (no date) [facility] (missing) (missing) (missing) Result panel 63 Specimen collection (procedure) (no date) [facility] (missing) (missing) (missing) Result panel 64 Specimen collection (procedure) (no date) [facility] (missing) (missing) (missing) Result panel 65 Specimen collection (procedure) (no date) [facility] (missing) (missing) (missing) Result panel 66 Specimen collection (procedure) (no date) [facility] (missing) (missing) (missing) Result panel 67 Specimen collection (procedure) (no date) [facility] (missing) (missing) (missing) Result panel 68 Specimen collection (procedure) (no date) [facility] (missing) (missing) (missing) Result panel 69 Specimen collection (procedure) (no date) [facility] (missing) (missing) (missing) Result panel 70 Specimen collection (procedure) (no date) [facility] (missing) (missing) (missing) Result panel 71 Specimen collection (procedure) (no date) [facility] (missing) (missing) (missing) Result panel 72 Specimen collection (procedure) (no date) [facility] (missing) (missing) (missing) Result panel 73 Specimen collection (procedure) (no date) [facility] (missing) (missing) (missing) Result panel 74 Specimen collection (procedure) (no date) [facility] (missing) (missing) (missing) Result panel 75 Specimen collection (procedure) (no date) [facility] (missing) (missing) (missing) Result panel 76 Specimen collection (procedure) (no date) [facility] (missing) (missing) (missing) Result panel 77 Specimen collection (procedure) (no date) [facility] (missing) (missing) (missing) Result panel 78 Specimen collection (procedure) (no date) [facility] (missing) (missing) (missing) Result panel 79 Specimen collection (procedure) (no date) [facility] (missing) (missing) (missing) Result panel 80 Specimen collection (procedure) (no date) [facility] (missing) (missing) (missing) Result panel 81 Specimen collection (procedure) (no date) [facility] (missing) (missing) (missing) Result panel 82 Specimen collection (procedure) (no date) [facility] (missing) (missing) (missing) Result panel 83 Specimen collection (procedure) (no date) [facility] (missing) (missing) (missing) Result panel 84 Specimen collection (procedure) (no date) [facility] (missing) (missing) (missing) Result panel 85 Specimen collection (procedure) (no date) [facility] (missing) (missing) (missing) Result panel 86 Specimen collection (procedure) (no date) [facility] (missing) (missing) (missing) Result panel 87 Specimen collection (procedure) (no date) [facility] (missing) (missing) (missing) Result panel 88 Specimen collection (procedure) (no date) [facility] (missing) (missing) (missing) Result panel 89 Specimen collection (procedure) (no date) [facility] (missing) (missing) (missing) Result panel 90 Specimen collection (procedure) (no date) [facility] (missing) (missing) (missing) Result panel 91 Specimen collection (procedure) (no date) [facility] (missing) (missing) (missing) Result panel 92 Specimen collection (procedure) (no date) [facility] (missing) (missing) (missing) Result panel 93 Specimen collection (procedure) (no date) [facility] (missing) (missing) (missing) Result panel 94 Specimen collection (procedure) (no date) [facility] (missing) (missing) (missing) Result panel 95 Specimen collection (procedure) (no date) [facility] (missing) (missing) (missing) Result panel 96 Specimen collection (procedure) (no date) [facility] (missing) (missing) (missing) Result panel 97 Specimen collection (procedure) (no date) [facility] (missing) (missing) (missing) Result panel 98 Specimen collection (procedure) (no date) [facility] (missing) (missing) (missing) Result panel 99 Specimen collection (procedure) (no date) [facility] (missing) (missing) (missing) Result panel 100 Specimen collection (procedure) (no date) [facility] (missing) (missing) (missing) Result panel 101 Specimen collection (procedure) (no date) [facility] (missing) (missing) (missing) Result panel 102 Specimen collection (procedure) (no date) [facility] (missing) (missing) (missing) Result panel 103 Hem[facility] A1c [facility] (missing) Result panel 104 Hemoglobin A1c percentage 2025-04-10 08:49:07 [facility] l 5.9 % (missing) Result panel 105 Hemoglobin A1C% w Est Avg Glu 2025-04-10 10:06 [facility] 5.9 % Hemoglobin A1c Estim ated Average Glucose (mg/dl) 5% 97 6% 126 7% 154 8% 183 9% 212 10% 240 11% 269 12% 298 Individuals with Hemoglobin (Hb)A1c between 5.7-6.4% are at increased risk for diabetes. Result panel 106 SARS-CoV-2 -RESP PCR PANEL 2025-05-04 16:26 [facility] NOT DETECTED (missing) A negative test result for this test indicates that SARS-CoV-2 RNA was not present in the specimen above the limit of detection. Testing performed on the [employer] RP2.1 Panel, a multiplexed nucleic acid repiratory [...] SARS-CoV-2 virus. INFLUENZA A- RESP PCR PANEL 2025-05-04:[address] [place] [address] NOT DETECTED (missing) Influenza A including subtypes H1, H3, and H1-2009 not detected by the [employer] RP2.1 Panel, a multiplexed nucleic acid test intended for the simultaneous qualitative detection and differentiation of nucleic acids from multiple viral and bacterial respiratory organisms. B. PARAPERTUSSIS- RESP PCR [place] 2025-05-04:[address] [place] [address] NOT DETECTED (missing) Negative results for this organism do not preclude infection with this organism and may require additional laboratory testing (e.g., bacterial and viral culture, immunofluorescence , and radiography) when evaluating a patient with possible respiratory tract infection. B. PERTUSSIS- RESP PCR PANEL 2025-05-04:[address] [place] [address] NOT DETECTED (missing) Negative results for this organism do not preclude infection with this organism and may require additional laboratory testing (e.g., bacterial and viral culture, immunofluorescence , and radiography) when evaluating a patient with possible respiratory tract infection. C. PNEUMONIAE- RESP PCR PANEL 2025-05-04:[address] [place] [address] NOT DETECTED (missing) Negative results for this organism do not preclude infection with this organism and may require additional laboratory testing (e.g., bacterial and viral culture, immunofluorescence , and radiography) when evaluating a patient with possible respiratory tract infection. M. PNEUMONIAE- RESP PCR PANEL 2025-05-04:[address] [place] [address] NOT DETECTED (missing) Negative results for this organism do not preclude infection with this organism and may require additional laboratory testing (e.g., bacterial and viral culture, immunofluorescence , and radiography) when evaluating a patient with possible respiratory tract infection. CORONAVIRUS 229E-RESP PCR 2025-05-04:[address] [place] [address] NOT DETECTED (missing) Negative results in the setting ofa respiratory illness may be due to infection with pathogens not detected by this test, or lower respiratory tract infection that may not be detected by nasopharyngeal specimen. CORONAVIRUS HKU1-RESP PCR 2025-05-04 16:26 [facility] NOT DETECTED (missing) Negative results in the setting ofa respiratory illness may be due to infection with pathogens not detected by this test, or lower respiratory tract infection that may not be detected by nasopharyngeal specimen. CORONAVIRUS GF61-BVIB PCR 2025-05-04 16: [facility] NOT DETECTED (missing) Negative results in the setting ofa respiratory illness may be due to infection with pathogens not detected by this test, or lower respiratory tract infection that may not be detected by nasopharyngeal specimen. CORONAVIRUS [id number]-CDWV PCR 2025-05-04 16:26 [facility] NOT DETECTED (missing) Negative results in the setting ofa respiratory illness may be due to infection with pathogens not detected by this test, or lower respiratory tract infection that may not be detected by nasopharyngeal specimen. HUMAN METAPNEUMOVIRUS 2025-05-04 16: [facility] NOT DETECTED (missing) Negative results in the setting ofa respiratory illness may be due to infection with pathogens not detected by this test, or lower respiratory tract infection that may not be detected by nasopharyngeal specimen. INFLUENZA B - RESP PCR PANEL 2025-05-04 16:26 [facility] NOT DETECTED (missing) Negative results in the setting ofa respiratory illness may be due to infection with pathogens not detected by this test, or lower respiratory tract infection that may not be detected by nasopharyngeal specimen. PARAINFLUENZA VIRUS 1 2025-05-04:26 [facility] NOT DETECTED (missing) Negative results in the setting ofa respiratory illness may be due to infection with pathogens not detected by this test, or lower respiratory tract infection that may not be detected by nasopharyngeal specimen. PARAINFLUENZA VIRUS 2 2025-05-04 16: [facility] NOT DETECTED (missing) Negative results in the setting ofa respiratory illness may be due to infection with pathogens not detected by this test, or lower respiratory tract infection that may not be detected by nasopharyngeal specimen. PARAINFLUENZA VIRUS 3 2025-05-04 16:26 [facility] NOT DETECTED (missing) Negative results in the setting ofa respiratory illness may be due to infection with pathogens not detected by this test, or lower respiratory tract infection that may not be detected by nasopharyngeal specimen. PARAINFLUENZA VIRUS 4 2025-05-04 16:26 [facility] NOT DETECTED (missing) Negative results in the setting ofa respiratory illness may be due to infection with pathogens not detected by this test, or lower respiratory tract infection that may not be detected by nasopharyngeal specimen. RHINOVIRUS/ENTEROVI CARLOS 2025-05-04 16:26 [facility] NOT DETECTED (missing) Negative results in the setting ofa respiratory illness may be due to infection with pathogens not detected by this test, or lower respiratory tract infection that may not be detected by nasopharyngeal specimen. RSV- RESP PCR PANEL 2025-05-04 16:26 [facility] NOT DETECTED (missing) Negative results in the setting ofa respiratory illness may be due to infection with pathogens not detected by this test, or lower respiratory tract infection that may not be detected by nasopharyngeal specimen. ADENOVIRUS - RESP PCR PANEL 2025-05-04 16:26 [facility] NOT DETECTED (missing) Y Negative results in the setting ofa respiratory illness may be due to infection with pathogens not detected by this test, or lower respiratory tract infection that may not be detected by nasopharyngeal specimen. Result panel 107 ETOH - ETHANOL 2025-05-04 16:37 [facility] < 10.0 mg/dl Blood Alcohol Levels [...] NUCLEATED RED BLOOD CELLS AUTO 2025-05-04 16:37 [facility] 0.0 /100wbc (missing) NRBC ABSOLUTE COUNT (AUTO) 2025-05-04 16:[address] [place] [address] 0.00 x10 3/ul (missing) BASOPHILS # (AUTO) 2025-05-04 16:37 [facility] 0.1 10 3/ul (missing) EOSINOPHILS # (AUTO) 2025-05-04 16:37 [facility] 0.2 10 3/ul (missing) MONOCYTES # (AUTO) 2025-05-04 16:37 [facility] 0.7 10 3/ul (missing) BILIRUBIN,TOTAL 2025-05-04 16:37 [facility] 0.7 mg/dl As of January 2023 test ing method has changed, this may include reference ranges. CREATININE 2025-05-04 16:37 [facility] 0.9 mg/dl As of January 2023 test ing method has changed, this may include reference ranges. INR 2025-05-04 16:37 [facility] 1.2 (missing ) Oral Anticoagulant Indication INR range Venous Thrombosis, P.E. 2.0 - 3.0 Mechanical Valve 2.5 - 3.5 LYMPHOCYTES # (AUTO) 2025-05-04 16:37 [facility] 1.3 10 3/ul (missing) MAGNESIUM 2025-05-04 16:37 [facility] 1.7 mg/dl As of January 2023 test ing method has changed, this may include reference ranges. GLUCOSE 2025-05-04 16:37 [facility] 127 mg/dl As of January 2023 test ing method has changed, this may include reference ranges. PT - PROTHROMBIN TIME 2025-05-04 16:37 [facility] 13.3 secs Y PRADAXA RED CELL DISTRIBUTION WIDTH 2025-05-04 16:37 [facility] 13.8 % (missing) SODIUM 2025-05-04 16:37 [facility] 130 mmol/l (missing) HGB - HEMOGLOBIN 2025-05-04 16:37 [facility] 14.4 g/dl (missing) BUN - BLOOD UREA NITROGEN 2025-05-04 16:37 [facility] 15 mg/dl As of January 2023 test ing method has changed, this may include reference ranges. ALBUMIN/GLOBULIN RATIO 2025-05-04 16:37 [facility] 2.0 (missing ) (missing) GLOBULIN 2025-05-04 16:37 [facility] 2.1 g/dl (missing) ALT ALANINE AMINOTRANSFERASE 2025-05-04 16:37 [facility] 26 iu/l As of January 2023 test ing method has changed, this may include reference ranges. CARBON DIOXIDE - CO2 2025-05-04 16:[address] [place] [address] 28 mmol/l As of January 2023 test ing method has changed, this may include reference ranges. PLT - PLATELET COUNT 2025-05-04 16:37 [facility] 283 10 3/ul (missing) NEUTROPHILS # (AUTO) 2025-05-04 16:37 [facility] 3.8 10 3/ul (missing) MEAN CORPUSCULAR HEMOGLOBIN 2025-05-04 16:37 [facility] 30.7 pg (missing) MEAN CORPUSCULAR HGB CONC 2025-05-04 16:37 [facility] 33.0 g/dl (missing) POTASSIUM 2025-05-04 16:37 [facility] 4.0 mmol/l As of January 2023 test ing method has changed, this may include reference ranges. ALBUMIN 2025-05-04 16:[address] [place] [address] 4.2 g/dl As of January 2023 test ing method has changed, this may include reference ranges. RED BLOOD COUNT 2025-05-04 16:37 [facility] 4.69 10 6/ul (missing) HCT - HEMATOCRIT 2025-05-04 16:[address] [place] [address] 43.7 % (missing) AST ASPARTATE AMINOTRANSFERASE 2025-05-04 16:37 [facility] 50 iu/l As of January 2023 test ing method has changed, this may include reference ranges. WHITE BLOOD COUNT 2025-05-04 16:37 [facility] 6.1 x10 3/ul (missing) TOTAL PROTEIN 2025-05-04 16:[address] [place] [address] 6.3 g/dl As of January 2023 test ing method has changed, this may include reference ranges. GFR - MDRD 2025-05-04 16:37 [facility] 63 (missing ) The IDMS-traceable MDRD Study [...] last updated September 2011. ALKALINE PHOSPHATASE 2025-05-04 16:[address] [place] [address] 66 iu/l As of January 2023 test ing method has changed, this may include reference ranges. ANION GAP 2025-05-04 16:[address] [place] [address] 8.0 (missing ) (missing) TROPONIN I HIGH SENSITIVITY 2025-05-04 16:[address] [place] [address] 8.6 ng/l A HIGH SENSITIVITY TROPONIN result of >= 14.9 ng/L for females is considered POSITIVE. A HIGH SENSITIVITY TROPONIN result of >= 19.8 ng/L for males is considered POSITIVE. A HIGH SENSITIVITY TROPONIN result of >= 17.9 ng/L for unspecified is considered POSITIVE. MEAN PLATELET VOLUME 2025-05-04 16:[address] [place] [address] 8.7 fl (missing) CALCIUM 2025-05-04 :[address] [place] [address] 9.3 mg/dl As of January 2023 test ing method has changed, this may include reference ranges. MEAN CORPUSCULAR VOLUME 2025-05-04 :[address] [place] [address] 93.2 fl (missing) CHLORIDE 2025-05-04 49 [place] [address] 94 mmol/l As of January 2023 test ing method has changed, this may include reference ranges. Social History date description facility 2025-04-16 00:00 Never smoked tobacco (finding) [facility] Vital Signs date measurement value units 2025-04-16 00:00 BMI 22.7 kg/m2 2025-04-16 00:00 BP_diastolic 84 mmHg 2025-04-16 00:00 BP_systolic 138 mmHg 2025-04-16 00:00 heart_rate 53 /min 2025-04-16 00:00 height_metric 177.8 cm 2025-04-16 00:00 o2_saturation 97 % 2025-04-16 00:00 temperature_standard 98.2 F 2025-04-16 00:00 weight_metric 71.83 kg
[2025-05-04] MEDS: LACTATED RINGERS 1,000 ML IV SCH (19:06)
[2025-05-04] MEDS: HYDROmorphone 0.5 MG/0.5 ML SYRINGE IVP PRN (19:52)
[2025-05-04 20:06] LABS: GLUCOSE, URINE (UA) NEGATIVE (NEGATIVE); KETONES,URINE (UA) NEGATIVE (NEGATIVE); OCCULT BLOOD,URINE TRACE-INTACT (NEGATIVE)
[2025-05-04 20:26] LABS: SQUAMOUS EPITHELIAL CELL,UR NONE SEEN (<= Few)
[2025-05-04] MEDS: ACETAMINOPHEN 500 MG TABLET PO SCH (21:35)
[2025-05-04] MEDS: SODIUM CHLORIDE FLUSH 0.9% 10 ML SYRINGE IVP SCH (23:35)
[2025-05-05 05:29] LABS: HCT - HEMATOCRIT 41.2 % (37.0-47.0); HGB - HEMOGLOBIN 13.4 g/dL (12.0-16.0); MEAN PLATELET VOLUME 9.4 fL (7.9-10.8); NRBC ABSOLUTE COUNT (AUTO) 0.00 x10^3/uL; NUCLEATED RED BLOOD CELLS AUTO 0.0 /100WBC; PLT - PLATELET COUNT 240 10^3/uL (130-450); RED CELL DISTRIBUTION WIDTH 13.7 % (12.0-15.0)
[2025-05-05 05:44] LABS: BUN - BLOOD UREA NITROGEN 13.0 mg/dL (6-20); CARBON DIOXIDE - CO2 28.0 mmol/L (21-32); CREATININE 0.7 mg/dL (0.6-1.3); GFR - MDRD 84.0 (>89)
--- NOTE | 2025-05-05 09:05 | PHARMACY PROGRESS NOTE ---
Best Possible Medication History Admit Date and Time: 05/04/25 [id number] Home Medications Medication Instructions Recorded Confirmed Type amantadine HCl 100 mg tablet 100 mg PO BID 05/05/25 History amiodarone 200 mg tablet 200 mg PO DAILY 05/05/2507/18 History benazepril 20 mg tablet 20 mg PO DAILY 05/05/2504/24 History carbidopa 25 mg-levodopa 100 mg 1 tab PO TID 05/05/25 05/05/25 History tablet clonazepam 0.5 mg tablet 0.5 mg PO .qhs PRN sleep 07/1805/05/25 History dabigatran etexilate 150 mg capsule 150 mg PO BID 04/2405/05/25 History duloxetine 20 mg capsule,delayed 20 mg PO DAILY 05/05/25 History release duloxetine 60 mg capsule,delayed 60 mg PO DAILY 05/05/25 History release insulin glargine-yfgn 100 unit/mL 20 unit subcut BID 1 05/05/25 History (3 mL) subcutaneous pen levothyroxine 25 mcg tablet 25 mcg PO DAILY 05/05/25 1 History metformin 500 mg tablet 1,000 mg PO BID 05/05/2507/18 History metoprolol succinate 50 mg 50 mg PO BID 05/05/2505/05 History tablet,extended release 24 hr pantoprazole 40 mg tablet,delayed 40 mg PO DAILY 05/0505/05/25 History release rosuvastatin 40 mg tablet 40 mg PO DAILY PM 05/05/25 History Processed by: Pharmacy Medications reviewed in ED?: No Medication History completed: Yes Patient Interview: Completed Secondary Source(s): Pharmacy records and Insurance records [facility] Statement: As the person ultimately responsible for medication therapy, providers are able to order a medication from an existing home medication list in [facility] via the "Reconcile Routine" prior to Confirmation of that medication by product support sales representative. Such practice is discouraged except when the physician, in their clinical judgment, deems that a medical need exists for a medication without regard to previous use.
--- NOTE | 2025-05-05 15:14 | PROVIDER PROGRESS NOTE ---
Subjective Prog Note Date Prog Note Date: 05/05/25 Subjective Pt reports feeling: No change Current Medications Current Medications Current Medications: Current Medications Generic Name Dose Route Start Last Admin Trade Name Freq PRN Reason Stop Dose Admin Acetaminophen 1,000 mg 05/04/25 22:00 05/05/25 14:08 Acetaminophen 500 Mg Tablet PO 1,000 mg TID TAMRA Administration Amiodarone HCl 200 mg 05/06/25 09:00 Amiodarone 200 Mg Tablet PO DAILY [facility] Atorvastatin Calcium 80 mg 05/05/25 21:00 Atorvastatin 40 Mg Tablet PO QPM TAMRA Carbidopa/Levodopa 1 tab 05/05/25 22:00 Carbidopa/Levodopa 25 Mg/100 Mg Tablet PO TID TAMRA Clonazepam 0.5 mg 05/05/25 14:47 Clonazepam 0.5 Mg Tablet PO QPM PRN sleep Duloxetine HCl 20 mg 05/06/25 09:00 Duloxetine 20 Mg Capsule PO DAILY [facility] Duloxetine HCl 60 mg 05/06/25 09:00 Duloxetine 60 Mg Capsule PO DAILY [facility] Enoxaparin Sodium 40 mg 05/05/25 21:00 Enoxaparin 40 Mg/0.4 Ml Syringe SUBQ DAILY [facility] Hydromorphone HCl 0.5 mg 05/04/25 18:46 05/05/25 13:54 Hydromorphone 0.5 Mg/0.5 Ml Syringe IVP 0.5 mg Q2H PRN Administration Pain 8 to 10 Hydroxyzine Pamoate 25 mg 05/05/25 14:58 05/05/25 15:03 Hydroxyzine Pamoate 25 Mg Capsule PO 25 mg BID PRN Administration Anxiety Sodium Chloride 1,000 mls @ 100 mls/hr 05/05/25 16:00 Normal Saline 0.9% IV .Q10H [facility] Levothyroxine Sodium 25 mcg 05/06/25 07:00 Levothyroxine 25 Mcg Tablet PO QDAC [facility] Lisinopril 20 mg 05/06/25 09:00 Lisinopril 20 Mg Tablet PO DAILY [facility] Ondansetron HCl 4 mg 05/04/25 18:46 Ondansetron Odt 4 Mg Tablet TL Q6HR PRN Nausea / Vomiting Ondansetron HCl 4 mg 05/04/25 18:46 Ondansetron 4 Mg/2 Ml Vial IVP Q6HR PRN Nausea / Vomiting Pantoprazole Sodium 40 mg 10/13/25 07:00 Pantoprazole 40 Mg Tablet PO QDAC [facility] Amantadine Hcl 100 1 each 05/05/25 21:00 Mg Tablet PO BID [facility] Sodium Chloride 10 ml 05/04/25 18:46 Sodium Chloride Flush 0.9% 10 Ml Syringe IVP PRN PRN NEEDED PER PROVIDER ORDERS Sodium Chloride 10 ml 05/05/25 01:00 05/05/25 10:32 Sodium Chloride Flush 0.9% 10 Ml Syringe IVP Not Given 0100,0900,1700 [facility] Objective Vital Signs/Intake & Output Reviewed Vital Signs: Yes Vital Signs: Vital Signs x48h Temp Pulse Resp BP Pulse Ox 05/05/25 10:58 36.6 C 54 L 18 152/73 H 96 05/05/25 07:49 36.6 C 53 L 16 150/69 H 92 Intake & Output: Intake & Output 05/02/25 05/03/25 05/04/25 05/05/25 23:59 23:59 23:59 23:59 Intake Total 330 / 330 1648 / 1648 Output Total 1400 / 1400 1300 / 1300 Balance -1070 / -1070 348 / 348 Weight (kg) 75 kg Objective General Appearance: positive No acute distress and Alert Eyes Bilateral: positive Normal inspection and PERRL ENT: positive ENT inspection nml Neck: positive Nml inspection Respiratory: positive Chest non-tender Cardiovascular: positive Irregularly irregular and Bradycardia Abdomen: positive Non-tender Skin: positive Color nml Neurologic/Psychiatric: positive Oriented x3 Lab Results 05/05/25 05:14 05/05/25 05:14 Other Labs: Lab Results x24hrs 05/05/25 05/05/25 05/04/25 Range/Units 09:02 05:14 23:52 WBC 8.1 (4.8-10.8) x10^3/uL RBC 4.36 (4.20-5.40) 10^6/uL Hgb 13.4 (12.0-16.0) g/dL Hct 41.2 (37.0-47.0) % MCV 94.5 (81.0-99.0) fL MCH 30.7 (27.0-31.0) pg MCHC 32.5 (32.0-36.0) g/dL RDW 13.7 (12.0-15.0) % Plt Count 240 (130-450) 10^3/uL MPV 9.4 (7.9-10.8) fL Neut # (Auto) 5.7 (1.5-6.6) 10^3/uL Lymph # (Auto) 1.0 L (1.5-3.5) 10^3/uL [place] # (Auto) 1.2 H (0.0-1.0) 10^3/uL Eos # (Auto) 0.2 (0.0-0.7) 10^3/uL Baso # (Auto) 0.1 (0.0-0.1) 10^3/uL Absolute Nucleated RBC 0.00 x10^3/uL Nucleated RBC % 0.0 /100WBC PT (9.9-12.6) secs INR (0.8-1.2) Sodium 127 L (135-145) mmol/L Potassium 4.0 (3.5-4.5) mmol/L Chloride 94 L (101-111) mmol/L Carbon Dioxide 28 (21-32) mmol/L Anion Gap 5.0 L (6-13) BUN 13 (6-20) mg/dL Creatinine 0.7 (0.6-1.3) mg/dL Estimated GFR (MDRD) 84 L (>89) Glucose 104 (74-104) mg/dL POC Whole Bld Glucose 73 111 (70-100) mg/dL Calcium 9.1 (8.5-10.3) mg/dL Magnesium (1.7-2.3) mg/dL Total Bilirubin (0.2-1.0) mg/dL AST (10-42) IU/L ALT (10-60) IU/L Alkaline Phosphatase (42-121) IU/L Troponin I High Sens (2.3-14.8) ng/L Total Protein (6.4-8.9) g/dL Albumin (3.2-5.5) g/dL Globulin (2.1-4.2) g/dL Albumin/Globulin Ratio (1.0-2.2) Urine Color Urine Clarity (CLEAR) Urine pH (5.0-7.5) PH Ur Specific [place] (1.002-1.030) Urine Protein (NEGATIVE) mg/dL Urine Glucose (UA) (NEGATIVE) mg/dL Urine Ketones (NEGATIVE) mg/dL Urine Occult Blood (NEGATIVE) Urine Nitrite (NEGATIVE) Urine Bilirubin (NEGATIVE) Urine Urobilinogen (NORMAL) E.U./dL Ur Leukocyte Esterase (NEGATIVE) Urine RBC (0-5) /HPF Urine WBC (0-5) /HPF Ur Squamous Epith Cells (<= Few) Urine Bacteria (None Seen) /HPF Ur Microscopic Review Urine Culture Comments Nasal Adenovirus (PCR) Nasal B. parapertussis DNA (PCR) Nasal Coronavir 229E PCR Nasal Coronavir HKU1 PCR Nasal Coronavir NL63 PCR Nasal Coronavir OC43 PCR Nasal Enterovir/Rhinovir PCR Nasal Influenza B PCR Nasal Influenza A PCR Nasal Parainfluen 1 PCR Nasal Parainfluen 2 PCR Nasal Parainfluen 3 PCR Nasal Parainfluen 4 PCR Nasal RSV (PCR) Nasal B.pertussis DNA PCR Nasal C.pneumoniae (PCR) [place] Human Metapneumo PCR Nasal M.pneumoniae (PCR) Nasal SARS-CoV-2 (PCR) Ethyl Alcohol mg/dL 05/04/25 05/04/25 05/04/25 Range/Units 20:00 16:37 16:26 WBC 6.1 (4.8-10.8) x10^3/uL RBC 4.69 (4.20-5.40) 10^6/uL Hgb 14.4 (12.0-16.0) g/dL Hct 43.7 (37.0-47.0) % MCV 93.2 (81.0-99.0) fL MCH 30.7 (27.0-31.0) pg MCHC 33.0 (32.0-36.0) g/dL RDW 13.8 (12.0-15.0) % Plt Count 283 (130-450) 10^3/uL MPV 8.7 (7.9-10.8) fL Neut # (Auto) 3.8 (1.5-6.6) 10^3/uL Lymph # (Auto) 1.3 L (1.5-3.5) 10^3/uL [place] # (Auto) 0.7 (0.0-1.0) 10^3/uL Eos # (Auto) 0.2 (0.0-0.7) 10^3/uL Baso # (Auto) 0.1 (0.0-0.1) 10^3/uL Absolute Nucleated RBC 0.00 x10^3/uL Nucleated RBC % 0.0 /100WBC PT 13.3 H (9.9-12.6) secs INR 1.2 (0.8-1.2) Sodium 130 L (135-145) mmol/L Potassium 4.0 (3.5-4.5) mmol/L Chloride 94 L (101-111) mmol/L Carbon Dioxide 28 (21-32) mmol/L Anion Gap 8.0 (6-13) BUN 15 (6-20) mg/dL Creatinine 0.9 (0.6-1.3) mg/dL Estimated GFR (MDRD) 63 L (>89) Glucose 127 H (74-104) mg/dL POC Whole Bld Glucose (70-100) mg/dL Calcium 9.3 (8.5-10.3) mg/dL Magnesium 1.7 (1.7-2.3) mg/dL Total Bilirubin 0.7 (0.2-1.0) mg/dL AST 50 H (10-42) IU/L ALT 26 (10-60) IU/L Alkaline Phosphatase 66 (42-121) IU/L Troponin I High Sens 8.6 (2.3-14.8) ng/L Total Protein 6.3 L (6.4-8.9) g/dL Albumin 4.2 (3.2-5.5) g/dL Globulin 2.1 (2.1-4.2) g/dL Albumin/Globulin Ratio 2.0 (1.0-2.2) Urine Color YELLOW Urine Clarity CLEAR (CLEAR) Urine pH 7.5 (5.0-7.5) PH Ur Specific [place] 1.010 (1.002-1.030) Urine Protein NEGATIVE (NEGATIVE) mg/dL Urine Glucose (UA) NEGATIVE (NEGATIVE) mg/dL Urine Ketones NEGATIVE (NEGATIVE) mg/dL Urine Occult Blood TRACE-INTACT (NEGATIVE) Urine Nitrite NEGATIVE (NEGATIVE) Urine Bilirubin NEGATIVE (NEGATIVE) Urine Urobilinogen 0.2 (NORMAL) (NORMAL) E.U./dL Ur Leukocyte Esterase SMALL H (NEGATIVE) Urine RBC 0-5 (0-5) /HPF Urine WBC 6-10 H (0-5) /HPF Ur Squamous Epith Cells NONE SEEN (<= Few) Urine Bacteria Few (None Seen) /HPF Ur Microscopic Review INDICATED Urine Culture Comments INDICATED Nasal Adenovirus (PCR) NOT DETECTED Nasal B. parapertussis DNA (PCR) NOT DETECTED Nasal Coronavir 229E PCR NOT DETECTED Nasal Coronavir HKU1 PCR NOT DETECTED Nasal Coronavir NL63 PCR NOT DETECTED Nasal Coronavir OC43 PCR NOT DETECTED Nasal Enterovir/Rhinovir PCR NOT DETECTED Nasal Influenza B PCR NOT DETECTED Nasal Influenza A PCR NOT DETECTED Nasal Parainfluen 1 PCR NOT DETECTED Nasal Parainfluen 2 PCR NOT DETECTED Nasal Parainfluen 3 PCR NOT DETECTED Nasal Parainfluen 4 PCR NOT DETECTED Nasal RSV (PCR) NOT DETECTED Nasal B.pertussis DNA PCR NOT DETECTED Nasal C.pneumoniae (PCR) NOT DETECTED [place] Human Metapneumo PCR NOT DETECTED Nasal M.pneumoniae (PCR) NOT DETECTED Nasal SARS-CoV-2 (PCR) NOT DETECTED Ethyl Alcohol < 10.0 mg/dL Assessment/Plan Problem List (1) Femoral neck fracture: Impression: Fall secondary to dizziness/fainting Ortho consulted Plan for OR tomorrow N.p.o. after midnight Scheduled Tylenol 1 g 3 times daily As needed hydromorphone 0.5 mg IV push (2) Dizziness: Impression: She describes fainting spells, where she can tell her vision is closing in before she passes out. Workup for this last fall shows femoral neck fracture She reports recent echo with no abnormality Will attempt to find this echocardiogram report She is on metoprolol succinate 50 mg twice daily for atrial fibrillation. She has been bradycardic the entire time she has been here. This is a very probable cause of her dizziness Holding metoprolol for now (3) Atrial fibrillation: Impression: Atrial fibrillation managed with metoprolol, amiodarone, Pradaxa Holding Pradaxa given preop state Continue amiodarone Holding metoprolol as she is bradycardic (4) Hyponatremia: Impression: Sodium noted to be 127 on morning labs. I have changed her IV fluids from LR to NS At 100 Asymptomatic Recheck sodium this afternoon (5) Type 2 diabetes mellitus treated with insulin: Impression: Type 2 diabetes mellitus on 1 g metformin twice daily and 20 units Lantus twice daily She has been off of her Lantus and her metformin since presentation and has had no hyperglycemia Check A1c SSI
[2025-05-05] MEDS: SODIUM CHLORIDE 0.9% 1,000 ML IV SCH (16:34)
[2025-05-05] MEDS: INSULIN LISPRO 300 UNIT/3 ML PEN SUBQ SCH ×2 (17:22→21:33)
[2025-05-05] MEDS: ENOXAPARIN 40 MG/0.4 ML SYRINGE SUBQ SCH (21:32)
[2025-05-05] MEDS: CARBIDOPA/LEVODOPA 25 MG/100 MG TABLET PO SCH (21:32)
[2025-05-05] MEDS: ATORVASTATIN 40 MG TABLET PO SCH (21:32)
[2025-05-06 05:36] LABS: HCT - HEMATOCRIT 39.5 % (37.0-47.0); HGB - HEMOGLOBIN 12.8 g/dL (12.0-16.0); MEAN PLATELET VOLUME 9.2 fL (7.9-10.8); NRBC ABSOLUTE COUNT (AUTO) 0.00 x10^3/uL; NUCLEATED RED BLOOD CELLS AUTO 0.0 /100WBC; PLT - PLATELET COUNT 233 10^3/uL (130-450); RED CELL DISTRIBUTION WIDTH 14.2 % (12.0-15.0)
[2025-05-06 05:53] LABS: BUN - BLOOD UREA NITROGEN 9.0 mg/dL (6-20); CARBON DIOXIDE - CO2 27.0 mmol/L (21-32); CREATININE 0.8 mg/dL (0.6-1.3); GFR - MDRD 72.0 (>89)
[2025-05-06] MEDS: LEVOTHYROXINE 25 MCG TABLET PO SCH (06:54)
[2025-05-06] MEDS: PANTOPRAZOLE 40 MG TABLET PO SCH (06:54)
[2025-05-06 07:29] LABS: ESTIMATED AVERAGE GLUCOSE 120 mg/dL (70-100); HEMOGLOBIN A1c% 5.8 % (4.27-6.07)
[2025-05-06] MEDS: AMIODARONE 200 MG TABLET PO SCH (09:22)
[2025-05-06] MEDS: INSULIN GLARGINE-YFGN 300 UNIT/3 ML PEN SUBQ SCH (12:44)
--- NOTE | 2025-05-06 15:15 | PROVIDER PROGRESS NOTE ---
Assessment/Plan Problem List (1) Femoral neck fracture: (2) Dizziness: (3) Atrial fibrillation: (4) Hyponatremia: (5) Type 2 diabetes mellitus treated with insulin: Current Meds Current Meds: Current Medications Generic Name Dose Route Start Last Admin Trade Name Freq PRN Reason Stop Dose Admin Acetaminophen 1,000 mg 05/04/25 22:00 05/06/25 14:31 Acetaminophen 500 Mg Tablet PO 1,000 mg TID TAMRA Administration Amiodarone HCl 200 mg 05/06/25 09:00 05/06/25 09:22 Amiodarone 200 Mg Tablet PO 200 mg DAILY TAMRA Administration Atorvastatin Calcium 80 mg 05/05/25 21:00 05/05/25 21:32 Atorvastatin 40 Mg Tablet PO 80 mg QPM TAMRA Administration Carbidopa/Levodopa 1 tab 05/05/25 22:00 05/06/25 14:31 Carbidopa/Levodopa 25 Mg/100 Mg Tablet PO 1 tab TID TAMRA Administration Clonazepam 0.5 mg 05/05/25 14:47 Clonazepam 0.5 Mg Tablet PO QPM PRN sleep Duloxetine HCl 20 mg 05/06/25 09:00 05/06/25 09:22 Duloxetine 20 Mg Capsule PO 20 mg DAILY TAMRA Administration Duloxetine HCl 60 mg 05/06/25 09:00 05/06/25 09:22 Duloxetine 60 Mg Capsule PO 60 mg DAILY TAMRA Administration Enoxaparin Sodium 40 mg 05/05/25 21:00 05/06/25 09:22 Enoxaparin 40 Mg/0.4 Ml Syringe SUBQ Not Given DAILY TAMRA Hydromorphone HCl 0.5 mg 05/04/25 18:46 05/06/25 06:53 Hydromorphone 0.5 Mg/0.5 Ml Syringe IVP 0.5 mg Q2H PRN Administration Pain 8 to 10 Hydroxyzine Pamoate 25 mg 05/05/25 14:58 05/05/25 15:03 Hydroxyzine Pamoate 25 Mg Capsule PO 25 mg BID PRN Administration Anxiety Sodium Chloride 1,000 mls @ 100 mls/hr 05/05/25 16:00 05/06/25 12:45 Normal Saline 0.9% IV 100 mls/hr .Q10H TAMRA Administration Insulin Glargine-yfgn 10 unit 05/06/25 12:00 05/06/25 12:44 Insulin Glargine-Yfgn 300 Unit/3 Ml Pen SUBQ 10 unit QDAC TAMRA Administration Insulin Human Lispro 1 - 9 unit 05/05/25 21:00 05/06/25 12:45 Insulin Lispro 300 Unit/3 Ml Pen SUBQ Not Given 0800,1200,1700,2100 [facility] Protocol Levothyroxine Sodium 25 mcg 05/06/25 07:00 05/06/25 06:54 Levothyroxine 25 Mcg Tablet PO 25 mcg QDAC TAMRA Administration Lisinopril 20 mg 05/06/25 09:00 05/06/25 09:22 Lisinopril 20 Mg Tablet PO 20 mg DAILY TAMRA Administration Ondansetron HCl 4 mg 05/04/25 18:46 Ondansetron Odt 4 Mg Tablet TL Q6HR PRN Nausea / Vomiting Ondansetron HCl 4 mg 05/04/25 18:46 Ondansetron 4 Mg/2 Ml Vial IVP Q6HR PRN Nausea / Vomiting Pantoprazole Sodium 40 mg 05/06/25 07:00 05/06/25 06:54 Pantoprazole 40 Mg Tablet PO 40 mg QDAC TAMRA Administration Amantadine Hcl 100 1 each 05/05/25 21:00 05/06/25 09:22 Mg Tablet PO 1 each BID TAMRA Administration Sodium Chloride 10 ml 05/04/25 18:46 Sodium Chloride Flush 0.9% 10 Ml Syringe IVP PRN PRN NEEDED PER PROVIDER ORDERS Sodium Chloride 10 ml 05/05/25 01:00 05/06/25 09:22 Sodium Chloride Flush 0.9% 10 Ml Syringe IVP 10 ml 0100,0900,1700 TAMRA Administration Lab Result 05/06/25 05:14 05/06/25 05:14 Objective Vital Signs: Vital Signs - 24 hr 05/05/25 16:00 05/05/25 18:00 05/05/25 18:00 Temperature 36.5 C Temperature Source Temporal Artery Scan Pulse Rate [Brachial] 58 L Respiratory Rate 18 Blood Pressure [Left Brachial artery] 146/60 H O2 Saturation 92 O2 Source Room air Sedation scale 0-Fully awake Pain Intensity 0 Pain Intensity [Right Hip] 0 Pain Intensity [Right] 0 05/05/25 20:00 05/05/25 20:25 05/05/25 21:32 Temperature 36.7 C Temperature Source Temporal Artery Scan Pulse Rate [Brachial] 60 Respiratory Rate 18 Blood Pressure [Left Brachial artery] 150/61 H O2 Saturation 93 O2 Source Room air Sedation scale 0-Fully awake Pain Intensity 0 1 Pain Intensity [Right Hip] 1 Pain Intensity [Right] 05/06/25 02:00 05/06/25 02:00 05/06/25 02:09 Temperature 36.7 C Temperature Source Temporal Artery Scan Pulse Rate [Brachial] 56 L Respiratory Rate 18 Blood Pressure [Left Brachial artery] 165/74 H O2 Saturation 93 O2 Source Room air Sedation scale 0-Fully awake Pain Intensity 2 Pain Intensity [Right Hip] 2 Pain Intensity [Right] 2 05/06/25 03:48 05/06/25 04:18 05/06/25 05:44 Temperature 36.6 C Temperature Source Temporal Artery Scan Pulse Rate [Brachial] 57 L Respiratory Rate 18 Blood Pressure [Left Brachial artery] 158/69 H O2 Saturation 94 O2 Source Room air Sedation scale 0-Fully awake Pain Intensity 10 0 10 Pain Intensity [Right Hip] Pain Intensity [Right] 05/06/25 06:45 05/06/25 06:53 05/06/25 06:54 Temperature Temperature Source Pulse Rate [Brachial] Respiratory Rate Blood Pressure [Left Brachial artery] O2 Saturation O2 Source Sedation scale Pain Intensity 10 10 Pain Intensity [Right Hip] 10 Pain Intensity [Right] 05/06/25 07:45 05/06/25 07:49 05/06/25 10:00 Temperature 36.5 C Temperature Source Skin Pulse Rate [Brachial] 58 L Respiratory Rate 18 Blood Pressure [Left Brachial artery] 167/76 H O2 Saturation 94 O2 Source Room air Sedation scale 0-Fully awake Pain Intensity 3 Pain Intensity [Right Hip] Pain Intensity [Right] 2 05/06/25 12:31 05/06/25 14:31 Temperature 36.6 C Temperature Source Pulse Rate [Brachial] 56 L Respiratory Rate 18 Blood Pressure [Left Brachial artery] 166/74 H O2 Saturation 96 O2 Source Room air Sedation scale 0-Fully awake Pain Intensity 2 Pain Intensity [Right Hip] Pain Intensity [Right] Oxygen O2 Source Room air I&O (Last 24 Hrs): Intake and Output Totals x24h 05/04/25 05/05/25 05/06/25 23:59 23:59 23:59 Intake Total 330 / 330 2533 / 2533 1952 / 1953 Output Total 1400 / 1400 2250 / 2250 2700 / 2700 Balance -1070 / -1070 283 / 283 -747 / -747 Results Results: Laboratory Results WBC 8.1 x10^3/uL (4.8-10.8) 05/06/25 05:14 RBC 4.21 10^6/uL (4.20-5.40) 05/06/25 05:14 Hgb 12.8 g/dL (12.0-16.0) 05/06/25 05:14 Hct 39.5 % (37.0-47.0) 05/06/25 05:14 MCV 93.8 fL (81.0-99.0) 05/06/25 05:14 MCH 30.4 pg (27.0-31.0) 05/06/25 05:14 MCHC 32.4 g/dL (32.0-36.0) 05/06/25 05:14 RDW 14.2 % (12.0-15.0) 05/06/25 05:14 Plt Count 233 10^3/uL (130-450) 05/06/25 05:14 MPV 9.2 fL (7.9-10.8) 05/06/25 05:14 Neut # (Auto) 6.1 10^3/uL (1.5-6.6) 05/06/25 05:14 Lymph # (Auto) 0.7 10^3/uL (1.5-3.5) L 05/06/25 05:14 [place] # (Auto) 0.9 10^3/uL (0.0-1.0) 05/06/25 05:14 Eos # (Auto) 0.3 10^3/uL (0.0-0.7) 05/06/25 05:14 Baso # (Auto) 0.0 10^3/uL (0.0-0.1) 05/06/25 05:14 Absolute Nucleated RBC 0.00 x10^3/uL 05/06/25 05:14 Nucleated RBC % 0.0 /100WBC 05/06/25 05:14 PT 13.3 secs (9.9-12.6) H 05/04/25 16:37 INR 1.2 (0.8-1.2) 05/04/25 16:37 Sodium 137 mmol/L (135-145) 05/06/25 05:14 Potassium 3.7 mmol/L (3.5-4.5) 05/06/25 05:14 Chloride 104 mmol/L (101-111) 05/06/25 05:14 Carbon Dioxide 27 mmol/L (21-32) 05/06/25 05:14 Anion Gap 6.0 (6-13) 05/06/25 05:14 BUN 9 mg/dL (6-20) 05/06/25 05:14 Creatinine 0.8 mg/dL (0.6-1.3) 05/06/25 05:14 Estimated GFR (MDRD) 72 (>89) L 05/06/25 05:14 Glucose 186 mg/dL (74-104) H 05/06/25 05:14 POC Whole Bld Glucose 139 mg/dL (70-100) 05/06/25 12:21 Estimat Average Glucose 120 mg/dL (70-100) H 05/06/25 05:14 Hemoglobin A1c % 5.8 % (4.27-6.07) 05/06/25 05:14 Calcium 8.6 mg/dL (8.5-10.3) 05/06/25 05:14 Magnesium 1.7 mg/dL (1.7-2.3) 05/04/25 16:37 Total Bilirubin 0.7 mg/dL (0.2-1.0) 05/04/25 16:37 AST 50 IU/L (10-42) H 05/04/25 16:37 ALT 26 IU/L (10-60) 05/04/25 16:37 Alkaline Phosphatase 66 IU/L (42-121) 05/04/25 16:37 Troponin I High Sens 8.6 ng/L (2.3-14.8) 05/04/25 16:37 Total Protein 6.3 g/dL (6.4-8.9) L 05/04/25 16:37 Albumin 4.2 g/dL (3.2-5.5) 05/04/25 16:37 Globulin 2.1 g/dL (2.1-4.2) 05/04/25 16:37 Albumin/Globulin Ratio 2.0 (1.0-2.2) 05/04/25 16:37 Urine Color YELLOW 05/04/25 20:00 Urine Clarity CLEAR (CLEAR) 05/04/25 20:00 Urine pH 7.5 PH (5.0-7.5) 05/04/25 20:00 Ur Specific [place] 1.010 (1.002-1.030) 05/04/25 20:00 Urine Protein NEGATIVE mg/dL (NEGATIVE) 05/04/25 20:00 Urine Glucose (UA) NEGATIVE mg/dL (NEGATIVE) 05/04/25 20:00 Urine Ketones NEGATIVE mg/dL (NEGATIVE) 05/04/25 20:00 Urine Occult Blood TRACE-INTACT (NEGATIVE) 05/04/25 20:00 Urine Nitrite NEGATIVE (NEGATIVE) 05/04/25 20: Urine Bilirubin NEGATIVE (NEGATIVE) 05/04/25 20:00 Urine Urobilinogen 0.2 (NORMAL) E.U./dL (NORMAL) 05/04/25 20:00 Ur Leukocyte Esterase SMALL (NEGATIVE) H 05/04/25 20:00 Urine RBC 0-5 /HPF (0-5) 05/04/25 20:00 Urine WBC 6-10 /HPF (0-5) H 05/04/25 20:00 Ur Squamous Epith Cells NONE SEEN (<= Few) 05/04/25 20:00 Urine Bacteria Few /HPF (None Seen) 05/04/25 20:00 Ur Microscopic Review INDICATED 05/04/25 20:00 Urine Culture Comments INDICATED 05/04/25 20:00 Nasal Adenovirus (PCR) NOT DETECTED 05/04/25 16:26 Nasal B. parapertussis DNA (PCR) NOT DETECTED 05/04/25 16:26 Nasal Coronavir 229E PCR NOT DETECTED 05/04/25 16:26 Nasal Coronavir HKU1 PCR NOT DETECTED 05/04/25 16:26 Nasal Coronavir NL63 PCR NOT DETECTED 05/04/25 16:26 Nasal Coronavir OC43 PCR NOT DETECTED 05/04/25 16:26 Nasal Enterovir/Rhinovir PCR NOT DETECTED 05/04/25 16:26 Nasal Influenza B PCR NOT DETECTED 05/04/25 16:26 Nasal Influenza A PCR NOT DETECTED 05/04/25 16:26 Nasal Parainfluen 1 PCR NOT DETECTED 05/04/25 16:26 Nasal Parainfluen 2 PCR NOT DETECTED 05/04/25 16:26 Nasal Parainfluen 3 PCR NOT DETECTED 05/04/25 16:26 Nasal Parainfluen 4 PCR NOT DETECTED 05/04/25 16:26 Nasal RSV (PCR) NOT DETECTED 05/04/25 16:26 Nasal B.pertussis DNA PCR NOT DETECTED 05/04/25 16:26 Nasal C.pneumoniae (PCR) NOT DETECTED 05/04/25 16:26 [place] Human Metapneumo PCR NOT DETECTED 05/04/25 16:26 Nasal M.pneumoniae (PCR) NOT DETECTED 05/04/25 16:26 Nasal SARS-CoV-2 (PCR) NOT DETECTED 05/04/25 16:26 Ethyl Alcohol < 10.0 mg/dL 05/04/25 16:37 ABX Reporting Has patient been on IV antibiotics over the past 48 hours?: No Current Medications Current Medications Current Medications: Current Medications Generic Name Dose Route Start Last Admin Trade Name Freq PRN Reason Stop Dose Admin Acetaminophen 1,000 mg 05/04/25 22:00 05/06/25 14:31 Acetaminophen 500 Mg Tablet PO 1,000 mg TID TAMRA Administration Amiodarone HCl 200 mg 05/06/25 09:00 05/06/25 09:22 Amiodarone 200 Mg Tablet PO 200 mg DAILY TAMRA Administration Atorvastatin Calcium 80 mg 05/05/25 21:00 05/05/25 21:32 Atorvastatin 40 Mg Tablet PO 80 mg QPM TAMRA Administration Carbidopa/Levodopa 1 tab 05/05/25 22:00 05/06/25 14:31 Carbidopa/Levodopa 25 Mg/100 Mg Tablet PO 1 tab TID TAMRA Administration Clonazepam 0.5 mg 05/05/25 14:47 Clonazepam 0.5 Mg Tablet PO QPM PRN sleep Duloxetine HCl 20 mg 05/06/25 09:00 05/06/25 09:22 Duloxetine 20 Mg Capsule PO 20 mg DAILY TAMRA Administration Duloxetine HCl 60 mg 05/06/25 09:00 05/06/25 09:22 Duloxetine 60 Mg Capsule PO 60 mg DAILY TAMRA Administration Enoxaparin Sodium 40 mg 05/05/25 21:00 05/06/25 09:22 Enoxaparin 40 Mg/0.4 Ml Syringe SUBQ Not Given DAILY TAMRA Hydromorphone HCl 0.5 mg 05/04/25 18:46 05/06/25 06:53 Hydromorphone 0.5 Mg/0.5 Ml Syringe IVP 0.5 mg Q2H PRN Administration Pain 8 to 10 Hydroxyzine Pamoate 25 mg 05/05/25 14:58 05/05/25 15:03 Hydroxyzine Pamoate 25 Mg Capsule PO 25 mg BID PRN Administration Anxiety Sodium Chloride 1,000 mls @ 100 mls/hr 05/05/25 16:00 05/06/25 12:45 Normal Saline 0.9% IV 100 mls/hr .Q10H TAMRA Administration Insulin Glargine-yfgn 10 unit 05/06/25 12:00 05/06/25 12:44 Insulin Glargine-Yfgn 300 Unit/3 Ml Pen SUBQ 10 unit QDAC TAMRA Administration Insulin Human Lispro 1 - 9 unit 05/05/25 21:00 05/06/25 12:45 Insulin Lispro 300 Unit/3 Ml Pen SUBQ Not Given 0800,1200,1700,2100 [facility] Protocol Levothyroxine Sodium 25 mcg 05/06/25 07:00 05/06/25 06:54 Levothyroxine 25 Mcg Tablet PO 25 mcg QDAC TAMRA Administration Lisinopril 20 mg 05/06/25 09:00 05/06/25 09:22 Lisinopril 20 Mg Tablet PO 20 mg DAILY TAMRA Administration Ondansetron HCl 4 mg 05/04/25 18:46 Ondansetron Odt 4 Mg Tablet TL Q6HR PRN Nausea / Vomiting Ondansetron HCl 4 mg 05/04/25 18:46 Ondansetron 4 Mg/2 Ml Vial IVP Q6HR PRN Nausea / Vomiting Pantoprazole Sodium 40 mg 05/06/25 07:00 05/06/25 06:54 Pantoprazole 40 Mg Tablet PO 40 mg QDAC TAMRA Administration Amantadine Hcl 100 1 each 05/05/25 21:00 05/06/25 09:22 Mg Tablet PO 1 each BID TAMRA Administration Sodium Chloride 10 ml 05/04/25 18:46 Sodium Chloride Flush 0.9% 10 Ml Syringe IVP PRN PRN NEEDED PER PROVIDER ORDERS Sodium Chloride 10 ml 05/05/25 01:00 05/06/25 09:22 Sodium Chloride Flush 0.9% 10 Ml Syringe IVP 10 ml 0100,0900,1700 TAMRA Administration
--- NOTE | 2025-05-06 15:31 | PROVIDER PROGRESS NOTE ---
<Statement entered by Austen Gil DNP - 05/06/25 18:01> Patient was seen and examined by me with a separate encounter after being seen by [employer] student. I reviewed the student's documentation including patient history, physical examination, laboratory, imaging, clinical assessment and treatment plan. I have discussed the management of the patient with the student, and with the patient. There are no changes. 64-year-old female history diabetes, atrial fibrillation. Admitted after fall with femoral neck fracture. Reported episodes of dizziness, these could be due to medication effect from beta-luisa or from insulin regimen. N.p.o. after midnight for OR tomorrow Subjective Prog Note Date Prog Note Date: 05/06/25 Prog Note Time: 15:17 Subjective Pt reports feeling: No change Subjective: Patient reports her pain is well managed. She is sitting comfortably without any new fever or chills. Denies any chest pain, palpitations. No new weakness or numbness. Current Medications Current Medications Current Medications: Current Medications Generic Name Dose Route Start Last Admin Trade Name Freq PRN Reason Stop Dose Admin Acetaminophen 1,000 mg 05/04/25 22:00 05/06/25 14:31 Acetaminophen 500 Mg Tablet PO 1,000 mg TID TARMA Administration Amiodarone HCl 200 mg 05/06/25 09:00 05/06/25 09:22 Amiodarone 200 Mg Tablet PO 200 mg DAILY TAMRA Administration Atorvastatin Calcium 80 mg 05/05/25 21:00 05/05/25 21:32 Atorvastatin 40 Mg Tablet PO 80 mg QPM TAMRA Administration Carbidopa/Levodopa 1 tab 05/05/25 22:00 05/06/25 14:31 Carbidopa/Levodopa 25 Mg/100 Mg Tablet PO 1 tab TID TAMRA Administration Clonazepam 0.5 mg 05/05/25 14:47 Clonazepam 0.5 Mg Tablet PO QPM PRN sleep Duloxetine HCl 20 mg 05/06/25 09:00 05/06/25 09:22 Duloxetine 20 Mg Capsule PO 20 mg DAILY TAMRA Administration Duloxetine HCl 60 mg 05/06/25 09:00 05/06/25 09:22 Duloxetine 60 Mg Capsule PO 60 mg DAILY TAMRA Administration Enoxaparin Sodium 40 mg 05/05/25 21:00 05/06/25 09:22 Enoxaparin 40 Mg/0.4 Ml Syringe SUBQ Not Given DAILY TAMRA Hydromorphone HCl 0.5 mg 05/04/25 18:46 05/06/25 06:53 Hydromorphone 0.5 Mg/0.5 Ml Syringe IVP 0.5 mg Q2H PRN Administration Pain 8 to 10 Hydroxyzine Pamoate 25 mg 05/05/25 14:58 05/05/25 15:03 Hydroxyzine Pamoate 25 Mg Capsule PO 25 mg BID PRN Administration Anxiety Sodium Chloride 1,000 mls @ 100 mls/hr 05/05/25 16:00 05/06/25 12:45 Normal Saline 0.9% IV 100 mls/hr .Q10H TAMRA Administration Insulin Glargine-yfgn 10 unit 05/06/25 12:00 05/06/25 12:44 Insulin Glargine-Yfgn 300 Unit/3 Ml Pen SUBQ 10 unit QDAC TAMRA Administration Insulin Human Lispro 1 - 9 unit 05/05/25 21:00 05/06/25 12:45 Insulin Lispro 300 Unit/3 Ml Pen SUBQ Not Given 0800,1200,1700,2100 [facility] Protocol Levothyroxine Sodium 25 mcg 05/06/25 07:00 05/06/25 06:54 Levothyroxine 25 Mcg Tablet PO 25 mcg QDAC TAMRA Administration Lisinopril 20 mg 05/06/25 09:00 05/06/25 09:22 Lisinopril 20 Mg Tablet PO 20 mg DAILY TAMRA Administration Ondansetron HCl 4 mg 05/04/25 18:46 Ondansetron Odt 4 Mg Tablet TL Q6HR PRN Nausea / Vomiting Ondansetron HCl 4 mg 05/04/25 18:46 Ondansetron 4 Mg/2 Ml Vial IVP Q6HR PRN Nausea / Vomiting Pantoprazole Sodium 40 mg 05/06/25 07:00 05/06/25 06:54 Pantoprazole 40 Mg Tablet PO 40 mg QDAC TAMRA Administration Amantadine Hcl 100 1 each 05/05/25 21:00 05/06/25 09:22 Mg Tablet PO 1 each BID TAMRA Administration Sodium Chloride 10 ml 05/04/25 18:46 Sodium Chloride Flush 0.9% 10 Ml Syringe IVP PRN PRN NEEDED PER PROVIDER ORDERS Sodium Chloride 10 ml 05/05/25 01:00 05/06/25 09:22 Sodium Chloride Flush 0.9% 10 Ml Syringe IVP 10 ml 0100,0900,1700 TAMRA Administration Objective Vital Signs/Intake & Output Reviewed Vital Signs: Yes Vital Signs: Vital Signs x48h Temp Pulse Resp BP Pulse Ox 05/06/25 12:31 36.6 C 56 L 18 166/74 H 96 05/06/25 07:49 36.5 C 58 L 18 167/76 H 94 Intake & Output: Intake & Output 05/03/25 05/04/25 05/05/25 05/06/25 23:59 23:59 23:59 23:59 Intake Total 330 / 330 2533 / 2533 1953 / 1953 Output Total 1400 / 1400 2250 / 2250 2700 / 2700 Balance -1070 / -1070 283 / 283 -747 / -747 Weight (kg) 75 kg Objective General Appearance: positive No acute distress, Alert and Anxious Eyes Bilateral: positive Normal inspection, PERRL, EOMI and Conjunctivae nml ENT: positive ENT inspection nml and No signs of dehydration Neck: positive Nml inspection, No JVD and Trachea midline Respiratory: positive Chest non-tender, No respiratory distress and Breath sounds nml; negative Wheezes, Rales or Rhonchi Cardiovascular: positive Regular rate & rhythm; negative No murmur Peripheral Pulses: 2+: Radial (R), 2+: Radial (L), 2+: Dorsalis pedis (R) and 2+: Dorsalis pedis (L) Abdomen: positive Non-tender; negative No distention, Guarding or Rebound Skin: positive Color nml, No rash and Warm Extremities: positive Nml appearance and No pedal edema; negative Joint swelling Neurologic/Psychiatric: positive Oriented x3 and Other (No focal deficits); negative Weakness or Slurred/abnml speech Lab Results 05/06/25 05:14 05/06/25 05:14 Other Labs: Lab Results x24hrs 05/06/25 05/06/25 05/06/25 Range/Units 12:21 07:43 05:14 WBC 8.1 (4.8-10.8) x10^3/uL RBC 4.21 (4.20-5.40) 10^6/uL Hgb 12.8 (12.0-16.0) g/dL Hct 39.5 (37.0-47.0) % MCV 93.8 (81.0-99.0) fL MCH 30.4 (27.0-31.0) pg MCHC 32.4 (32.0-36.0) g/dL RDW 14.2 (12.0-15.0) % Plt Count 233 (130-450) 10^3/uL MPV 9.2 (7.9-10.8) fL Neut # (Auto) 6.1 (1.5-6.6) 10^3/uL Lymph # (Auto) 0.7 L (1.5-3.5) 10^3/uL [place] # (Auto) 0.9 (0.0-1.0) 10^3/uL Eos # (Auto) 0.3 (0.0-0.7) 10^3/uL Baso # (Auto) 0.0 (0.0-0.1) 10^3/uL Absolute Nucleated RBC 0.00 x10^3/uL Nucleated RBC % 0.0 /100WBC Sodium 137 (135-145) mmol/L Potassium 3.7 (3.5-4.5) mmol/L Chloride 104 (101-111) mmol/L Carbon Dioxide 27 (21-32) mmol/L Anion Gap 6.0 (6-13) BUN 9 (6-20) mg/dL Creatinine 0.8 (0.6-1.3) mg/dL Estimated GFR (MDRD) 72 L (>89) Glucose 186 H (74-104) mg/dL POC Whole Bld Glucose 139 185 (70-100) mg/dL Estimat Average Glucose 120 H (70-100) mg/dL Hemoglobin A1c % 5.8 (4.27-6.07) % Calcium 8.6 (8.5-10.3) mg/dL 05/05/25 05/05/25 Range/Units 20:38 16:45 WBC (4.8-10.8) x10^3/uL RBC (4.20-5.40) 10^6/uL Hgb (12.0-16.0) g/dL Hct (37.0-47.0) % MCV (81.0-99.0) fL MCH (27.0-31.0) pg MCHC (32.0-36.0) g/dL RDW (12.0-15.0) % Plt Count (130-450) 10^3/uL MPV (7.9-10.8) fL Neut # (Auto) (1.5-6.6) 10^3/uL Lymph # (Auto) (1.5-3.5) 10^3/uL [place] # (Auto) (0.0-1.0) 10^3/uL Eos # (Auto) (0.0-0.7) 10^3/uL Baso # (Auto) (0.0-0.1) 10^3/uL Absolute Nucleated RBC x10^3/uL Nucleated RBC % /100WBC Sodium (135-145) mmol/L Potassium (3.5-4.5) mmol/L Chloride (101-111) mmol/L Carbon Dioxide (21-32) mmol/L Anion Gap (6-13) BUN (6-20) mg/dL Creatinine (0.6-1.3) mg/dL Estimated GFR (MDRD) (>89) Glucose (74-104) mg/dL POC Whole Bld Glucose 262 280 (70-100) mg/dL Estimat Average Glucose (70-100) mg/dL Hemoglobin A1c % (4.27-6.07) % Calcium (8.5-10.3) mg/dL Diagnostic Imaging Diagnostic Imaging Results: positive Prelim report reviewed (05-06 ECHO) Other Results/Comments Other Results/Comments: 05-04-2025 EKG Q-T 558 05-05-2025 Tele Q-T [phone] 05-06-2025 Tele Q-T [phone] ABX Reporting Has patient been on IV antibiotics over the past 48 hours?: No Sepsis Event Note (H) Evaluation Current Stage of Sepsis: Ruled out Assessment/Plan Problem List (1) Femoral neck fracture: Impression: R femoral neck fracture d/t ground level fall secondary to syncope. -Ortho has been consulted, awaiting OR -NPO after midnight -Pradexa held pre-operatively -Pain well controlled on scheduled Tylenol and prn hydromorphone (2) Syncope: Impression: Suspect overtreatment with diabetic insulin, A1c 5.8. Also concern for bradycardia, HR has remained in the 50s even after d/c her metoprolol. Long QT interval also noted (QT>500ms). Patient reports latest syncopal episode was different from her usual dizzy spells and falls -occurred without any headache, weakness, palpitations, sweats, or tremors. Denies any recent changes to medications. Home pulse readings reportedly in the 80s. Last ECHO per patient was normal. -ECHO performed today, awaiting interpretation - no obvious valvular abnormalities on my read -Check Mg -Monitor telemetry, watch K+ (3) Dizziness: Impression: see syncope above (4) Atrial fibrillation: Impression: Managed on metoprolol succinate 50mg BID, amiodarone 200mg, and pradexa 150mg. Prolonged QT interval noted since admission, unclear if this is her baseline or new. Last seen cardiology for atrial fibrillation more than 1.5 years ago, has been taking medications as prescribed since. -Hold metoprolol as she is bradycardic -Continue amiodarone 200mg -Hold Pradexa pre-operatively -Follow-up with cardiology outpatient (5) Type 2 diabetes mellitus treated with insulin: Impression: A1c 5.8. POC glucose 73 recorded during admission. Concern for hypoglycemic episodes d/t overtreatment. Has been on metformin 1g and glargine 20units BID at home. Will benefit from continuous glucose monitor. -Continue on reduced glargine 10 units daily, SSI -Follow-up with assistant health educator outpatient (6) Hyponatremia: Impression: Resolved. Na 127 -> 137 -Continue NS at 100
[2025-05-07] MEDS: ONDANSETRON ODT 4 MG TABLET TL PRN (05:18)
[2025-05-07 05:39] LABS: HCT - HEMATOCRIT 42.1 % (37.0-47.0); HGB - HEMOGLOBIN 13.5 g/dL (12.0-16.0); MEAN PLATELET VOLUME 10.0 fL (7.9-10.8); NRBC ABSOLUTE COUNT (AUTO) 0.00 x10^3/uL; NUCLEATED RED BLOOD CELLS AUTO 0.0 /100WBC; PLT - PLATELET COUNT 177 10^3/uL (130-450); RED CELL DISTRIBUTION WIDTH 14.2 % (12.0-15.0)
[2025-05-07 06:24] LABS: BUN - BLOOD UREA NITROGEN 6.0 mg/dL (6-20); CARBON DIOXIDE - CO2 22.0 mmol/L (21-32); CREATININE 0.6 mg/dL (0.6-1.3); GFR - MDRD 101.0 (>89)
--- NOTE | 2025-05-07 08:42 | CONSULTATION NOTE ---
History of Present Illness History of Present Illness HPI Comment/Other: Patient was admitted a couple days ago with a right hip femoral neck fracture. Because the patient was on blood thinners it was decided that we would hold the blood thinners before doing the major hip surgery. Patient complains of hip pain on the right side. Meds/Allgy Home Medications Ambulatory Orders Medication Instructions Recorded Confirmed amantadine HCl 100 mg tablet 100 mg PO BID 05/05/25 amiodarone 200 mg tablet 200 mg PO DAILY 05/05/2507/18 benazepril 20 mg tablet 20 mg PO DAILY 05/05/2504/24 carbidopa 25 mg-levodopa 100 mg 1 tab PO TID 05/05/25 05/05/25 tablet clonazepam 0.5 mg tablet 0.5 mg PO .qhs PRN sleep 07/1805/05/25 dabigatran etexilate 150 mg capsule 150 mg PO BID 04/2405/05/25 duloxetine 20 mg capsule,delayed 20 mg PO DAILY 05/05/25 release duloxetine 60 mg capsule,delayed 60 mg PO DAILY 05/05/25 release insulin glargine-yfgn 100 unit/mL 20 unit subcut BID 1 05/05/25 (3 mL) subcutaneous pen levothyroxine 25 mcg tablet 25 mcg PO DAILY 05/05/25 1 metformin 500 mg tablet 1,000 mg PO BID 05/05/2507/18 metoprolol succinate 50 mg 50 mg PO BID 05/05/2505/05 tablet,extended release 24 hr pantoprazole 40 mg tablet,delayed 40 mg PO DAILY 05/0505/05/25 release rosuvastatin 40 mg tablet 40 mg PO DAILY PM 05/05/25 1 Allergies Allergies Allergy/AdvReac Type Severity Reaction Status Date / Time No Known Drug Allergies Allergy Verified 05/04/25 16:14 PFSH Active Problems All Active Problems (Updated 05/07/25 @ 08:24 by Debra Powell) Femoral neck fracture (Acute) Syncope (Acute) Dizziness (Acute) Atrial fibrillation (Chronic) Type 2 diabetes mellitus treated with insulin (Chronic) Hyponatremia (Acute) Social History Social History (Updated 05/04/25 @ 18:33 by Ana Jameson PA-C) Smoking Status: Unknown if ever smoked Do you dip or chew tobacco?: No Do you vape?: No Level: Independent Do you feel safe in your home environment?: Yes History of physical, verbal, emotional, or financial abuse?: No Substance Use: denies use Results Lab Results Lab results reviewed: Yes 05/07/25 05:14 05/07/25 05:14 Other Lab Results: Lab Results x24hrs 05/07/25 05/07/25 05/06/25 Range/Units 06:58 05:14 20:42 WBC 7.7 (4.8-10.8) x10^3/uL RBC 4.33 (4.20-5.40) 10^6/uL Hgb 13.5 (12.0-16.0) g/dL Hct 42.1 (37.0-47.0) % MCV 97.2 (81.0-99.0) fL MCH 31.2 H (27.0-31.0) pg MCHC 32.1 (32.0-36.0) g/dL RDW 14.2 (12.0-15.0) % Plt Count 177 (130-450) 10^3/uL MPV 10.0 (7.9-10.8) fL Neut # (Auto) 5.6 (1.5-6.6) 10^3/uL Lymph # (Auto) 0.7 L (1.5-3.5) 10^3/uL [place] # (Auto) 1.0 (0.0-1.0) 10^3/uL Eos # (Auto) 0.5 (0.0-0.7) 10^3/uL Baso # (Auto) 0.1 (0.0-0.1) 10^3/uL Absolute Nucleated RBC 0.00 x10^3/uL Nucleated RBC % 0.0 /100WBC Sodium 134 L (135-145) mmol/L Potassium 3.7 (3.5-4.5) mmol/L Chloride 104 (101-111) mmol/L Carbon Dioxide 22 (21-32) mmol/L Anion Gap 8.0 (6-13) BUN 6 (6-20) mg/dL Creatinine 0.6 (0.6-1.3) mg/dL Estimated GFR (MDRD) 101 (>89) Glucose 171 H (74-104) mg/dL POC Whole Bld Glucose 173 247 (70-100) mg/dL Calcium 8.6 (8.5-10.3) mg/dL 05/06/25 05/06/25 Range/Units 16:50 12:21 WBC (4.8-10.8) x10^3/uL RBC (4.20-5.40) 10^6/uL Hgb (12.0-16.0) g/dL Hct (37.0-47.0) % MCV (81.0-99.0) fL MCH (27.0-31.0) pg MCHC (32.0-36.0) g/dL RDW (12.0-15.0) % Plt Count (130-450) 10^3/uL MPV (7.9-10.8) fL Neut # (Auto) (1.5-6.6) 10^3/uL Lymph # (Auto) (1.5-3.5) 10^3/uL [place] # (Auto) (0.0-1.0) 10^3/uL Eos # (Auto) (0.0-0.7) 10^3/uL Baso # (Auto) (0.0-0.1) 10^3/uL Absolute Nucleated RBC x10^3/uL Nucleated RBC % /100WBC Sodium (135-145) mmol/L Potassium (3.5-4.5) mmol/L Chloride (101-111) mmol/L Carbon Dioxide (21-32) mmol/L Anion Gap (6-13) BUN (6-20) mg/dL Creatinine (0.6-1.3) mg/dL Estimated GFR (MDRD) (>89) Glucose (74-104) mg/dL POC Whole Bld Glucose 194 139 (70-100) mg/dL Calcium (8.5-10.3) mg/dL Exam Exam Vital Signs: Vital Signs x48h Temp Pulse Resp BP Pulse Ox 05/07/25 07:45 36.5 C 60 16 170/80 H 95 05/07/25 05:32 36.4 C L 59 L 18 182/83 H 95 Patient unable to straight leg raise. Tenderness to right groin. Conclusion/Plan Problem List (1) Femoral neck fracture: Plan: The patient has been off the blood thinners now for 3 days so we are ready to perform the surgery we are going to do it this afternoon at 1 PM.Procedure will be percutaneous pinning of right hip. (2) Syncope: (3) Dizziness: (4) Atrial fibrillation: (5) Type 2 diabetes mellitus treated with insulin: (6) Hyponatremia: Lab Results Lab results reviewed: Yes 05/07/25 05:14 05/07/25 05:14
--- NOTE | 2025-05-07 09:13 | PROVIDER PROGRESS NOTE ---
<Statement entered by Austen Gil DNP - 05/07/25 13:58> Patient was seen and examined by me with a separate encounter after being seen by med student. I reviewed the student's documentation including patient history, physical examination, laboratory, imaging, clinical assessment and treatment plan. I have discussed the management of the patient with the student, and with the patient. There are no changes. OR today. Repleted magnesium Subjective Prog Note Date Prog Note Date: 05/07/25 Prog Note Time: 09:11 Subjective Pt reports feeling: No change Subjective: Ms. Carla Lawrence is a 64 y/o woman with history of atrial fibrillation and T2DM on insulin, currently admitted for a R femoral neck fracture, sustained from a ground-level fall secondary to a syncopal episode. She is clinically and awaiting surgical fixation scheduled today at 1pm. No acute overnight events, and today she reports her pain is well controlled. Has remained NPO since midnight, last meal was dinner yesterday. Denies any new fevers, chills, sweats. No headaches, palpitations, or chest pain. Current Medications Current Medications Current Medications: Current Medications Generic Name Dose Route Start Last Admin Trade Name Freq PRN Reason Stop Dose Admin Acetaminophen 1,000 mg 05/04/25 22:00 05/07/25 05:18 Acetaminophen 500 Mg Tablet PO 1,000 mg TID TAMRA Administration Amiodarone HCl 200 mg 05/06/25 09:00 05/07/25 08:01 Amiodarone 200 Mg Tablet PO 200 mg DAILY TAMRA Administration Atorvastatin Calcium 80 mg 05/05/25 21:00 05/06/25 21:19 Atorvastatin 40 Mg Tablet PO 80 mg QPM TAMRA Administration Carbidopa/Levodopa 1 tab 05/05/25 22:00 05/07/25 05:18 Carbidopa/Levodopa 25 Mg/100 Mg Tablet PO 1 tab TID TAMRA Administration Clonazepam 0.5 mg 05/05/25 14:47 Clonazepam 0.5 Mg Tablet PO QPM PRN sleep Duloxetine HCl 20 mg 05/06/25 09:00 05/07/25 08:01 Duloxetine 20 Mg Capsule PO 20 mg DAILY TAMRA Administration Duloxetine HCl 60 mg 05/06/25 09:00 05/07/25 08:01 Duloxetine 60 Mg Capsule PO 60 mg DAILY TAMRA Administration Enoxaparin Sodium 40 mg 05/05/25 21:00 05/07/25 08:01 Enoxaparin 40 Mg/0.4 Ml Syringe SUBQ Not Given DAILY TAMRA Hydromorphone HCl 0.5 mg 05/04/25 18:46 05/06/25 06:53 Hydromorphone 0.5 Mg/0.5 Ml Syringe IVP 0.5 mg Q2H PRN Administration Pain 8 to 10 Hydroxyzine Pamoate 25 mg 05/05/25 14:58 05/05/25 15:03 Hydroxyzine Pamoate 25 Mg Capsule PO 25 mg BID PRN Administration Anxiety Sodium Chloride 1,000 mls @ 100 mls/hr 05/05/25 16:00 05/06/25 21:25 Normal Saline 0.9% IV 100 mls/hr .Q10H TAMRA Administration Insulin Glargine-yfgn 10 unit 05/06/25 12:00 05/07/25 07:04 Insulin Glargine-Yfgn 300 Unit/3 Ml Pen SUBQ 10 unit QDAC TAMRA Administration Insulin Human Lispro 1 - 9 unit 05/05/25 21:00 05/07/25 08:02 Insulin Lispro 300 Unit/3 Ml Pen SUBQ Not Given 0800,1200,1700,2100 [facility] Protocol Levothyroxine Sodium 25 mcg 05/06/25 07:00 05/07/25 07:05 Levothyroxine 25 Mcg Tablet PO 25 mcg QDAC TAMRA Administration Lisinopril 20 mg 05/06/25 09:00 05/07/25 08:01 Lisinopril 20 Mg Tablet PO 20 mg DAILY TAMRA Administration Ondansetron HCl 4 mg 05/04/25 18:46 05/07/25 05:18 Ondansetron Odt 4 Mg Tablet TL 4 mg Q6HR PRN Administration Nausea / Vomiting Ondansetron HCl 4 mg 05/04/25 18:46 Ondansetron 4 Mg/2 Ml Vial IVP Q6HR PRN Nausea / Vomiting Pantoprazole Sodium 40 mg 05/06/25 07:00 05/07/25 07:05 Pantoprazole 40 Mg Tablet PO 40 mg QDAC TAMRA Administration Amantadine Hcl 100 1 each 05/05/25 21:00 05/07/25 08:01 Mg Tablet PO 1 each BID TAMRA Administration Sodium Chloride 10 ml 05/04/25 18:46 Sodium Chloride Flush 0.9% 10 Ml Syringe IVP PRN PRN NEEDED PER PROVIDER ORDERS Sodium Chloride 10 ml 05/05/25 01:00 05/07/25 08:02 Sodium Chloride Flush 0.9% 10 Ml Syringe IVP Not Given 0100,0900,1700 [facility] Objective Vital Signs/Intake & Output Reviewed Vital Signs: Yes Vital Signs: Vital Signs x48h Temp Pulse Resp BP Pulse Ox 05/07/25 07:45 36.5 C 60 16 170/80 H 95 05/07/25 05:32 36.4 C L 59 L 18 182/83 H 95 Intake & Output: Intake & Output 05/04/25 05/05/25 05/06/25 05/07/25 23:59 23:59 23:59 23:59 Intake Total 330 / 330 2533 / 2533 3820 / 3820 Output Total 1400 / 1400 2250 / 2250 5350 / 5350 1550 / 1550 Balance -1070 / -1070 283 / 283 -1530 / -1530 -1550 / -1550 Weight (kg) 75 kg Objective General Appearance: positive No acute distress and Alert Eyes Bilateral: positive Normal inspection, PERRL and EOMI ENT: positive No signs of dehydration Neck: positive Nml inspection and No JVD Respiratory: positive No respiratory distress and Breath sounds nml; negative Wheezes, Rales or Rhonchi Cardiovascular: positive Regular rate & rhythm and No murmur Peripheral Pulses: 2+: Radial (R) and 2+: Radial (L) Abdomen: positive Non-tender and No distention Skin: positive Warm and Dry Extremities: positive No pedal edema Neurologic/Psychiatric: positive Oriented x3 and Mood/affect nml Lab Results 05/07/25 05:14 05/07/25 05:14 Other Labs: Lab Results x24hrs 05/07/25 05/07/25 05/06/25 Range/Units 06:58 05:14 20:42 WBC 7.7 (4.8-10.8) x10^3/uL RBC 4.33 (4.20-5.40) 10^6/uL Hgb 13.5 (12.0-16.0) g/dL Hct 42.1 (37.0-47.0) % MCV 97.2 (81.0-99.0) fL MCH 31.2 H (27.0-31.0) pg MCHC 32.1 (32.0-36.0) g/dL RDW 14.2 (12.0-15.0) % Plt Count 177 (130-450) 10^3/uL MPV 10.0 (7.9-10.8) fL Neut # (Auto) 5.6 (1.5-6.6) 10^3/uL Lymph # (Auto) 0.7 L (1.5-3.5) 10^3/uL [place] # (Auto) 1.0 (0.0-1.0) 10^3/uL Eos # (Auto) 0.5 (0.0-0.7) 10^3/uL Baso # (Auto) 0.1 (0.0-0.1) 10^3/uL Absolute Nucleated RBC 0.00 x10^3/uL Nucleated RBC % 0.0 /100WBC Sodium 134 L (135-145) mmol/L Potassium 3.7 (3.5-4.5) mmol/L Chloride 104 (101-111) mmol/L Carbon Dioxide 22 (21-32) mmol/L Anion Gap 8.0 (6-13) BUN 6 (6-20) mg/dL Creatinine 0.6 (0.6-1.3) mg/dL Estimated GFR (MDRD) 101 (>89) Glucose 171 H (74-104) mg/dL POC Whole Bld Glucose 173 247 (70-100) mg/dL Calcium 8.6 (8.5-10.3) mg/dL 05/06/25 05/06/25 Range/Units 16:50 12:21 WBC (4.8-10.8) x10^3/uL RBC (4.20-5.40) 10^6/uL Hgb (12.0-16.0) g/dL Hct (37.0-47.0) % MCV (81.0-99.0) fL MCH (27.0-31.0) pg MCHC (32.0-36.0) g/dL RDW (12.0-15.0) % Plt Count (130-450) 10^3/uL MPV (7.9-10.8) fL Neut # (Auto) (1.5-6.6) 10^3/uL Lymph # (Auto) (1.5-3.5) 10^3/uL [place] # (Auto) (0.0-1.0) 10^3/uL Eos # (Auto) (0.0-0.7) 10^3/uL Baso # (Auto) (0.0-0.1) 10^3/uL Absolute Nucleated RBC x10^3/uL Nucleated RBC % /100WBC Sodium (135-145) mmol/L Potassium (3.5-4.5) mmol/L Chloride (101-111) mmol/L Carbon Dioxide (21-32) mmol/L Anion Gap (6-13) BUN (6-20) mg/dL Creatinine (0.6-1.3) mg/dL Estimated GFR (MDRD) (>89) Glucose (74-104) mg/dL POC Whole Bld Glucose 194 139 (70-100) mg/dL Calcium (8.5-10.3) mg/dL 05-06-2025 Hgb A1C 5.8 05-04-2025 Mg 1.7 Diagnostic Imaging Diagnostic Imaging Comments: 05-06-2025 ECHO - awaiting interpretation Other Results/Comments Other Results/Comments: 05-07-2025 Tele Q-T interval ABX Reporting Has patient been on IV antibiotics over the past 48 hours?: No Sepsis Event Note (H) Evaluation Current Stage of Sepsis: Ruled out Assessment/Plan Problem List (1) Femoral neck fracture: Impression: R femoral neck fracture d/t ground level fall secondary to syncope, awaiting surgical fixation with ortho- scheduled for 1 pm today. -Pain well controlled on scheduled Tylenol -NPO since midnight -Pradexa held pre-operatively -Will check H&H post-op -Check Vitamin D (2) Syncope: Impression: Syncopal episode, sudden, unwitnessed without clear trigger. Different from her usual dizzy spells and falls, denies any recent med changes. Cardiac cause less likely, awaiting final ECHO interpretation but prelim read w/o obvious valvular abnormalities, wall thickening. Suspect medication related, likely oversuppression from beta-luisa. Also consider hypoglycemia (A1c 5.8, glucose 73). Long QT interval also noted, but unclear is this chronic or new. Last Mg 1.7, K+ 3.7. -Awaiting ECHO final read -Monitor telemetry, watch K+ -Check Mg (3) Dizziness: Impression: see syncope above (4) Atrial fibrillation: Impression: Managed on metoprolol succinate 50mg BID, amiodarone 200mg, and pradexa 150mg. Prolonged QT interval (QT>500ms) noted since admission, unclear if this is her baseline or new. Last seen cardiology for atrial fibrillation more than 1.5 years ago, has been taking medications as prescribed since. -Hold metoprolol as she is bradycardic -Hold Pradexa pre-operatively -Continue amiodarone 200mg, given low-dose and clinically stable -Follow-up with cardiology outpatient (5) Type 2 diabetes mellitus treated with insulin: Impression: A1c 5.8. POC glucose 73 recorded during admission, no hypoglycemic episodes on reduced insulin dose. Has been on metformin 1g and glargine 20units BID at home. -Continue on reduced glargine 10 units daily + SSI -Maintain blood glucose within 100-180 range -Diabetic educatory consulted, recommend CGM and f/u as outpatient (6) Anxiety: Impression: Well controlled on duloxetine 80mg, clonazepam 0.5mg at nighttime. (7) Hyponatremia: Impression: Resolved. -Continue NS at 100
[2025-05-07] MEDS ORDERED: BUPIVACAINE 0.25% PF 30 ML VIAL ONE (11:03)
[2025-05-07] MEDS: MAGNESIUM SULFATE 2 GRAM 2 GM/50 ML BAG IV ONE (12:01)
--- NOTE | 2025-05-07 12:40 | ANESTHESIA PROCEDURE NOTE ---
Pre-Anesthesia VS, & Labs Diagnosis Surgical Diagnosis:: R hip fracture Procedure Procedure: R hip pinning Vitals Vital Signs: Temp Pulse Resp BP Pulse Ox 36.5 C 60 16 170/80 H 95 05/07/25 07:45 05/07/25 07:45 05/07/25 07:45 05/07/25 07:45 05/07/25 07:45 NPO NPO: >8 hours Is Patient ?: No Lab Results Current Lab Results: Laboratory Tests 05/07/25 11:09: POC Whole Bld Glucose 157 05/07/25 10:17: Magnesium 1.6 L 05/07/25 06:58: POC Whole Bld Glucose 173 05/07/25 05:14: WBC 7.7, RBC 4.33, Hgb 13.5, Hct 42.1, MCV 97.2, MCH 31.2 H, MCHC 32.1, RDW 14.2, Plt Count 177, MPV 10.0, Neut # (Auto) 5.6, Lymph # (Auto) 0.7 L, [place] # (Auto) 1.0, Eos # (Auto) 0.5, Baso # (Auto) 0.1, Absolute Nucleated RBC 0.00, Nucleated RBC % 0.0, Sodium 134 L, Potassium 3.7, Chloride 104, Carbon Dioxide 22, Anion Gap 8.0, BUN 6, Creatinine 0.6, Estimated GFR (MDRD) 101, Glucose 171 H, Calcium 8.6 05/06/25 20:42: POC Whole Bld Glucose 247 05/06/25 16:50: POC Whole Bld Glucose 194 05/06/25 12:21: POC Whole Bld Glucose 139 05/06/25 07:43: POC Whole Bld Glucose 185 05/06/25 05:14: WBC 8.1, RBC 4.21, Hgb 12.8, Hct 39.5, MCV 93.8, MCH 30.4, MCHC 32.4, RDW 14.2, Plt Count 233, MPV 9.2, Neut # (Auto) 6.1, Lymph # (Auto) 0.7 L, [place] # (Auto) 0.9, Eos # (Auto) 0.3, Baso # (Auto) 0.0, Absolute Nucleated RBC 0.00, Nucleated RBC % 0.0, Sodium 137, Potassium 3.7, Chloride 104, Carbon Dioxide 27, Anion Gap 6.0, BUN 9, Creatinine 0.8, Estimated GFR (MDRD) 72 L, G lucose 186 H, Estimat Average Glucose 120 H, Hemoglobin A1c % 5.8, Calcium 8.6 05/05/25 20:38: POC Whole Bld Glucose 262 05/05/25 16:45: POC Whole Bld Glucose 280 05/05/25 09:02: POC Whole Bld Glucose 73 05/05/25 05:14: WBC 8.1, RBC 4.36, Hgb 13.4, Hct 41.2, MCV 94.5, MCH 30.7, MCHC 32.5, RDW 13.7, Plt Count 240, MPV 9.4, Neut # (Auto) 5.7, Lymph # (Auto) 1.0 L, [place] # (Auto) 1.2 H, Eos # (Auto) 0.2, Baso # (Auto) 0.1, Absolute Nucleated RBC 0.00, Nucleated RBC % 0.0, Sodium 127 L, Potassium 4.0, Chloride 94 L, Carbon Dioxide 28, Anion Gap 5.0 L, BUN 13, Creatinine 0.7, Estimated GFR (MDRD) 84 L, Glucose 104, Calcium 9.1 05/04/25 23:52: POC Whole Bld Glucose 111 05/04/25 16:37: WBC 6.1, RBC 4.69, Hgb 14.4, Hct 43.7, MCV 93.2, MCH 30.7, MCHC 33.0, RDW 13.8, Plt Count 283, MPV 8.7, Neut # (Auto) 3.8, Lymph # (Auto) 1.3 L, [place] # (Auto) 0.7, Eos # (Auto) 0.2, Baso # (Auto) 0.1, Absolute Nucleated RBC 0.00, Nucleated RBC % 0.0, PT 13.3 H, INR 1.2, Sodium 130 L, Potassium 4.0, C hloride 94 L, Carbon Dioxide 28, Anion Gap 8.0, BUN 15, Creatinine 0.9, E stimated GFR (MDRD) 63 L, Glucose 127 H, Calcium 9.3, Magnesium 1.7, Total Bilirubin 0.7, AST 50 H, ALT 26, Alkaline Phosphatase 66, Troponin I High Sens 8.6, Total Protein 6.3 L, Albumin 4.2, Globulin 2.1, Albumin/Globulin Ratio 2.0, Ethyl Alcohol < 10.0 05/07/25 05:14 05/07/25 05:14 Meds/Allgy Home Medications Ambulatory Orders Medication Instructions Recorded Confirmed amantadine HCl 100 mg tablet 100 mg PO BID 05/05/25 amiodarone 200 mg tablet 200 mg PO DAILY 05/05/2507/18 benazepril 20 mg tablet 20 mg PO DAILY 05/05/2504/24 carbidopa 25 mg-levodopa 100 mg 1 tab PO TID 05/05/25 05/05/25 tablet clonazepam 0.5 mg tablet 0.5 mg PO .qhs PRN sleep 07/1805/05/25 dabigatran etexilate 150 mg capsule 150 mg PO BID 04/2405/05/25 duloxetine 20 mg capsule,delayed 20 mg PO DAILY 05/05/25 release duloxetine 60 mg capsule,delayed 60 mg PO DAILY 05/05/25 release insulin glargine-yfgn 100 unit/mL 20 unit subcut BID 1 05/05/25 (3 mL) subcutaneous pen levothyroxine 25 mcg tablet 25 mcg PO DAILY 05/05/25 1 metformin 500 mg tablet 1,000 mg PO BID 05/05/2507/18 metoprolol succinate 50 mg 50 mg PO BID 05/05/2505/05 tablet,extended release 24 hr pantoprazole 40 mg tablet,delayed 40 mg PO DAILY 05/0505/05/25 release rosuvastatin 40 mg tablet 40 mg PO DAILY PM 05/05/25 1 Allergies Allergies Allergy/AdvReac Type Severity Reaction Status Date / Time No Known Drug Allergies Allergy Verified 05/04/25 16:14 [facility] Medical History Medical History (Updated 05/07/25 @ 12:50 by Litzy Baldwin CRNA) Hyponatremia Anxiety Type 2 diabetes mellitus treated with insulin Atrial fibrillation Dizziness Syncope Femoral neck fracture Social History Social History Smoking Status: Unknown if ever smoked Do you dip or chew tobacco?: No Do you vape?: No Level: Independent Do you feel safe in your home environment?: Yes History of physical, verbal, emotional, or financial abuse?: No Substance Use: denies use Anesthesia Exam (Expanded) Exam General: Alert, Oriented x3 and Cooperative Dental: WNL Mouth Openin Fingerbreadth Neck Mobility: Normal Mallampati classification: II Thyromental Distance: 4-6 cm Respiratory: Lungs clear Cardiovascular: Regular rate Exam Exam Vital Signs: Vital Signs x48h Temp Pulse Resp BP Pulse Ox 05/07/25 07:45 36.5 C 60 16 170/80 H 95 05/07/25 05:32 36.4 C L 59 L 18 182/83 H 95 Plan Problem List (1) Femoral neck fracture: Plan: The patient has been off the blood thinners now for 3 days so we are ready to perform the surgery we are going to do it this afternoon at 1 PM.Procedure will be percutaneous pinning of right hip. (2) Syncope: (3) Dizziness: (4) Atrial fibrillation: (5) Type 2 diabetes mellitus treated with insulin: (6) Anxiety: (7) Hyponatremia: Plan Anesthesia Type: General Consent for Procedure(s) Verified and Reviewed: Yes Code Status: Attempt Resuscitation ASA Classification ASA classification: 3-Severe systemic disease Is this case an emergency?: No
[2025-05-07] MEDS ORDERED: ePHEDrine 50 MG/ML VIAL IVP PRN (12:51)
[2025-05-07] MEDS ORDERED: METOCLOPRAMIDE 10 MG/2 ML VIAL IVP PRN (12:51)
[2025-05-07] MEDS ORDERED: NALOXONE 0.4 MG/ML VIAL IVP PRN (12:51)
[2025-05-07] MEDS ORDERED: ONDANSETRON 4 MG/2 ML VIAL IVP PRN (12:51)
[2025-05-07] MEDS ORDERED: ATROPINE ABBOJECT 1 MG/10 ML SYRINGE IVP PRN (12:51)
[2025-05-07] MEDS ORDERED: fentaNYL 100 MCG/2 ML VIAL IVP PRN (12:51)
[2025-05-07] MEDS ORDERED: MORPHINE 2 MG/ML CARPUJECT IVP PRN (12:51)
[2025-05-07] MEDS ORDERED: MIDAZOLAM 2 MG/2 ML VIAL ONE (12:57)
[2025-05-07] MEDS ORDERED: ONDANSETRON 4 MG/2 ML VIAL ONE (12:58)
[2025-05-07] MEDS ORDERED: LIDOCAINE-PF 2% 10 ML AMP SUBQ ONE (12:58)
[2025-05-07] MEDS ORDERED: KETOROLAC 30 MG/ML VIAL ONE (12:58)
[2025-05-07] MEDS ORDERED: PROPOFOL 200 MG/20 ML VIAL IVP ONE (12:58)
[2025-05-07] MEDS ORDERED: fentaNYL 100 MCG/2 ML VIAL ONE (12:58)
[2025-05-07] MEDS: LACTATED RINGERS 1,000 ML IV SCH (14:19)
[2025-05-07] MEDS ORDERED: HYDROmorphone 0.5 MG/0.5 ML SYRINGE ONE ×2 (14:41→14:52)
[2025-05-07] MEDS: HYDROmorphone 0.5 MG/0.5 ML SYRINGE IVP PRN (14:43)
--- NOTE | 2025-05-07 15:23 | OPERATIVE REPORT ---
Operative Report General Admit Date: 05/04/25 Procedure Data: Operation Date: 05/07/25 13:00 Proposed Procedures p Hip Pinning(Right) - Wagner Lou DO Actual Procedures p Hip Pinning(Right) - Wagner Lou DO Pre-Op Diagnosis: Fracture of neck of femur Anesthesia Type General Case Staff Anesthesia Provider: Litzy Baldwin Case Times Into Recovery: 05/07/25 14:11 Procedure Start: 05/07/25 13:48 Procedure End: 05/07/25 14:07 Time out: 05/07/25 13:47 Implants SCREW SS 32MMTHRD 7.0X85MM SCREW 7.0X95MM CAN SS 32TH WASHER 6.5X12.7MM Pre-Op Diagnosis: Right hip femoral neck fracture Post Op Diagnosis: Right hip femoral neck fracture Procedure Note Estimated Blood Loss (ml): 15 Indications: Right hip femoral neck fracture Complications: None Other Other Information/Narrative: The patient was taken to the operative suite and after undergoing a general anesthetic she was transferred onto the fracture table with the right hip placed in the traction device in the left hip in the stirrup. The right hip was prepped and draped in the usual sterile fashion under physician guided fluoroscopy we made sure that the fracture was lined up under AP and lateral x- rays and once that was confirmed we inserted our first guidepin across the fracture site and we confirmed on AP and lateral films that the pin was properly placed within the bone and it within the head. We then added 2 more guidepins for a total of 3 guidepins and we confirmed on physician guided fluoroscopy that they were all in the proper position and then we measured each 1 in the first screw was a 95 with a washer. The second screw was an 85 with a washer. The third screw was in 95 without a washer. The wound was irrigated the deep tissue was closed with 0 Vicryl the subcu with 2-0 Vicryl the skin was closed with eliazar a sterile dressing was applied and the patient was awakened and transferred stable to recovery room
--- NOTE | 2025-05-07 16:54 | ANESTHESIA POST OP EVALUATION ---
Anesthesia Post Eval Post Anesthesia Eval Vitals: Last Vital Signs Temp 36.4 C L 05/07/25 16:11 Pulse 58 L 05/07/25 16:11 Resp 20 05/07/25 16:11 BP 168/77 H 05/07/25 16:11 Pulse Ox 95 05/07/25 16:11 O2 Flow Rate 8 05/07/25 14:11 CV Function Including HR & BP: Stable Pain Control: Satisfactory Nausea & Vomiting: Negative Mental Status: Baseline Respiratory Status: Airway Patent Hydration Status: Satisfactory Anesthesia Complications: None
--- NOTE | 2025-05-07 17:24 | ECHO Report ---
Version: 1 Study ID: [id number] Adult Echocardiogram Report Name: SLIM MAY Study Date: 05/06/2025, 7: 15 AM BP: 167 / 76 mmHg Patient Location: [id number]^[id number] HR: 58 bpm : 1960 (MM/DD/YYYY) Gender: Female Height: 70 in Age: 64 Years Weight: 154 lb BSA: 1.87 m² Reason For Study: eval dizziness History: Hip Fx. Supine for test. Interpretation Summary Global left ventricular systolic function is normal. The visual left ventricular ejection fraction is estimated at 55 to 60%. The right ventricle is normal in size and function. No concerning cardiac valve disease is noted. Left Ventricle: The left ventricle is normal in size. There is normal left ventricular wall thickness. No thrombus seen in the left ventricle. The visual left ventricular ejection fraction is estimated at 55 to 60%. Global left ventricular systolic function is normal. Assessment of left ventricular filling pressure is indeterminate. Right Ventricle: The right ventricle is normal in size and function. TAPSE is consistent with normal right ventricular function. The tricuspid annular plane systolic excursion (TAPSE) measurement is 2.3.... cm. Aortic Valve: The aortic valve is mildly calcified. The aortic valve is trileaflet. No hemodynamically significant valvular aortic stenosis. Mitral Valve: The mitral valve leaflets are mildly calcified. No evidence of mitral stenosis is seen. There is mild mitral regurgitation. Tricuspid Valve: The tricuspid valve is normal in structure and function. There is no tricuspid stenosis. Mild tricuspid regurgitation present. Pulmonic Valve: The pulmonic valve is not well seen. There is no pulmonic valvular stenosis. Trace pulmonic valvular regurgitation is present. Left Atrium: The left atrial size is normal. Right Atrium: Right atrial size is normal. The inferior vena cava appears normal. Atrial Septum: The interatrial septum appears normal, without evidence of shunt by 2D imaging and color Doppler. Aorta: The ascending aorta is normal in size. The transverse arch is normal in size. The sinuses of Valsalva are normal in size. Pulmonary Artery: The pulmonary artery is not well visualized, but is probably normal size. The pulmonary artery systolic pressure is normal. Inferior vena cava dynamics indicate normal right atrial pressures. The right ventricular systolic pressure is 30mmHg. Pericardium/Pleural Space: A trace pericardial effusion is present. Left Ventricle IVSd: 0.92 cm LVIDd: 5.1 cm LVPWd: 0.96 cm LVIDs: 3.6 cm ESV(sp4-el): 53.6 ml Right Ventricle TAPSE: 2.27 cm RV S Bobby: 11.0 cm/sec Atria LA dimension: 5.0 cm LAV(MOD-sp4): 45.2 ml LAV(MOD-sp2): 43.0 ml Diastolic Function MV dec time: 0.26 sec MV E max bobby: 77.7 cm/sec MV A max bobby: 111.8 cm/sec Aortic Valve LVOT diam: 1.83 cm LV V1 mean P.05 mmHg LV V1 mean: 68.2 cm/sec LV V1 VTI: 23.3 cm Ao V2 VTI: 36.9 cm Ao mean P.3 mmHg Ao V2 mean: 108.3 cm/sec LV V1 max: 97.4 cm/sec LV V1 max P.8 mmHg Ao max P.5 mmHg Ao V2 max: 154.2 cm/sec Mitral Valve MV max P.0 mmHg MV V2 max: 122.5 cm/sec MV mean P.81 mmHg MV V2 mean: 59.7 cm/sec MV V2 VTI: 31.3 cm Tricuspid Valve TR max P.0 mmHg TR max bobby: 260.0 cm/sec TV max P.0 mmHg Aorta Ao root diam: 2.33 cm MMode/2D Measurements & Calculations Ao root diam: 2.33 cm BMI: 22.1 kilograms/m² BSA([facility], [place]): 1.86 m² ESV(sp4-el): 53.6 ml IVSd: 0.92 cm LA A4C-A/L: 17.8 cm² LA dimension: 5.0 cm LA ESV-A/L: 49.4 ml LA Vol Index: 33.0 ml/m² LAV(MOD-sp2): 43.0 ml LAV(MOD-sp4): 45.2 ml LVIDd: 5.1 cm LVIDs: 3.6 cm LVOT diam: 1.83 cm LVPWd: 0.96 cm RA A4Cs: 10.7 cm² TAPSE: 2.27 cm Doppler Measurements & Calculations Ao max P.5 mmHg Ao mean P.3 mmHg Ao V2 max: 154.2 cm/sec Ao V2 mean: 108.3 cm/sec Ao V2 VTI: 36.9 cm Lat E/e': 10.0 LV V1 max: 97.4 cm/sec LV V1 max P.8 mmHg LV V1 mean: 68.2 cm/sec LV V1 mean P.05 mmHg LV V1 VTI: 23.3 cm Med E/e': 13.6 MV A max bobby: 111.8 cm/sec MV dec time: 0.26 sec MV DVI-pr: 0.70 MV E max bobby: 77.7 cm/sec MV max P.0 mmHg MV mean P.81 mmHg MV V2 max: 122.5 cm/sec MV V2 mean: 59.7 cm/sec MV V2 VTI: 31.3 cm PA max P.0 mmHg PA V2 max: 86.1 cm/sec RV S Bobby: 11.0 cm/sec TR max P.0 mmHg TR max bobby: 260.0 cm/sec TV max P.0 mmHg Other Measurements & Calculations Ao root area: 4.3 cm² SADAF(I,D): 1.67 cm² SADAF(V,D): 1.67 cm² EDV(Teich): 125.7 ml EF(sp-el): 50.0 % EF(Teich): 57.8 % ESV(Teich): 53.0 ml FS: 30.6 % LVOT area: 2.6 cm² MV E/A: 0.70 MVA(VTI): 1.97 cm² SV(LVOT): 61.7 ml MD Dayna 05/07/2025, 5: 23 PM Ordering Physician: Austen Gil Referring Physician: Ana Jameson Performed By: [facility]
[2025-05-08 05:11] LABS: HCT - HEMATOCRIT 32.6 % (37.0-47.0); HGB - HEMOGLOBIN 10.7 g/dL (12.0-16.0); MEAN PLATELET VOLUME 9.4 fL (7.9-10.8); NRBC ABSOLUTE COUNT (AUTO) 0.00 x10^3/uL; NUCLEATED RED BLOOD CELLS AUTO 0.0 /100WBC; PLT - PLATELET COUNT 211 10^3/uL (130-450); RED CELL DISTRIBUTION WIDTH 14.3 % (12.0-15.0)
[2025-05-08 05:22] LABS: BUN - BLOOD UREA NITROGEN 11.0 mg/dL (6-20); CARBON DIOXIDE - CO2 26.0 mmol/L (21-32); CREATININE 0.8 mg/dL (0.6-1.3); GFR - MDRD 72.0 (>89)
--- NOTE | 2025-05-08 11:30 | PROVIDER PROGRESS NOTE ---
Subjective Prog Note Date Prog Note Date: 05/08/25 Prog Note Time: 11:25 Subjective Pt reports feeling: No change Subjective: Ms. Carla Lawrence is a 64 y/o woman with history of atrial fibrillation and T2DM on insulin, currently admitted for a R femoral neck fracture after sustaining a ground-level fall secondary to a syncopal episode. She is now post-operative day 1 from surgical pinning. No acute overnight events. Today she reports her pain remains well controlled. Has been tolerating fluids without nausea or vomit. Has not ambulated yet, awaiting formal PT/OT evaluation. Daughter and present with her today. Current Medications Current Medications Current Medications: Current Medications Generic Name Dose Route Start Last Admin Trade Name Freq PRN Reason Stop Dose Admin Acetaminophen 1,000 mg 05/04/25 22:00 05/08/25 06:40 Acetaminophen 500 Mg Tablet PO 1,000 mg TID TAMRA Administration Amiodarone HCl 200 mg 05/06/25 09:00 05/08/25 07:58 Amiodarone 200 Mg Tablet PO 200 mg DAILY TAMRA Administration Atorvastatin Calcium 80 mg 05/05/25 21:00 05/07/25 21:04 Atorvastatin 40 Mg Tablet PO 80 mg QPM TAMRA Administration Carbidopa/Levodopa 1 tab 05/05/25 22:00 05/08/25 06:40 Carbidopa/Levodopa 25 Mg/100 Mg Tablet PO 1 tab TID TAMRA Administration Clonazepam 0.5 mg 05/05/25 14:47 Clonazepam 0.5 Mg Tablet PO QPM PRN sleep Docusate Sodium 100 mg 05/08/25 12:00 Docusate Sodium 100 Mg Capsule PO DAILY TAMRA Duloxetine HCl 20 mg 05/06/25 09:00 05/08/25 08:02 Duloxetine 20 Mg Capsule PO 20 mg DAILY TAMRA Administration Duloxetine HCl 60 mg 05/06/25 09:00 05/08/25 07:58 Duloxetine 60 Mg Capsule PO 60 mg DAILY TAMRA Administration Enoxaparin Sodium 40 mg 05/05/25 21:00 05/08/25 07:59 Enoxaparin 40 Mg/0.4 Ml Syringe SUBQ 40 mg DAILY TAMRA Administration Hydromorphone HCl 0.5 mg 05/04/25 18:46 05/07/25 20:01 Hydromorphone 0.5 Mg/0.5 Ml Syringe IVP 0.5 mg Q2H PRN Administration Pain 8 to 10 Hydroxyzine Pamoate 25 mg 05/05/25 14:58 05/05/25 15:03 Hydroxyzine Pamoate 25 Mg Capsule PO 25 mg BID PRN Administration Anxiety Insulin Glargine-yfgn 10 unit 05/06/25 12:00 05/08/25 07:59 Insulin Glargine-Yfgn 300 Unit/3 Ml Pen SUBQ 10 unit QDAC TAMRA Administration Insulin Human Lispro 1 - 9 unit 05/05/25 21:00 05/08/25 07:59 Insulin Lispro 300 Unit/3 Ml Pen SUBQ 3 unit 0800,1200,1700,2100 TAMRA Administration Protocol Levothyroxine Sodium 25 mcg 05/06/25 07:00 05/08/25 06:40 Levothyroxine 25 Mcg Tablet PO 25 mcg QDAC TAMRA Administration Lisinopril 20 mg 05/06/25 09:00 05/08/25 07:59 Lisinopril 20 Mg Tablet PO 20 mg DAILY TAMRA Administration Ondansetron HCl 4 mg 05/04/25 18:46 05/07/25 05:18 Ondansetron Odt 4 Mg Tablet TL 4 mg Q6HR PRN Administration Nausea / Vomiting Ondansetron HCl 4 mg 05/04/25 18:46 Ondansetron 4 Mg/2 Ml Vial IVP Q6HR PRN Nausea / Vomiting Pantoprazole Sodium 40 mg 05/06/25 07:00 05/08/25 06:39 Pantoprazole 40 Mg Tablet PO 40 mg QDAC TAMRA Administration Amantadine Hcl 100 1 each 05/05/25 21:00 05/08/25 07:59 Mg Tablet PO 1 each BID TAMRA Administration Polyethylene Glycol 17 gm 05/08/25 12:00 Polyethylene Glycol 3350 17 Gm Packet PO DAILY TAMRA Sodium Chloride 10 ml 05/04/25 18:46 Sodium Chloride Flush 0.9% 10 Ml Syringe IVP PRN PRN NEEDED PER PROVIDER ORDERS Sodium Chloride 10 ml 05/05/25 01:00 05/08/25 08:02 Sodium Chloride Flush 0.9% 10 Ml Syringe IVP 10 ml 0100,0900,1700 TAMRA Administration Objective Vital Signs/Intake & Output Reviewed Vital Signs: Yes Vital Signs: Vital Signs x48h Temp Pulse Resp BP Pulse Ox 05/08/25 07:48 36.4 C L 69 20 149/78 H 98 05/08/25 04:11 36.5 C 64 18 124/64 97 Intake & Output: Intake & Output 05/05/25 05/06/25 05/07/25 05/08/25 23:59 23:59 23:59 23:59 Intake Total 2533 / 2533 3820 / 3820 2468 / 2468 1360 / 1360 Output Total 2250 / 2250 5350 / 5350 2850 / 2850 200 / 200 Balance 283 / 283 -1530 / -1530 -382 / -382 1160 / 1160 Objective General Appearance: positive No acute distress and Alert Eyes Bilateral: positive Normal inspection, PERRL and EOMI ENT: positive No signs of dehydration Neck: positive Nml inspection and No JVD Respiratory: positive No respiratory distress and Breath sounds nml; negative Wheezes, Rales or Rhonchi Cardiovascular: positive Regular rate & rhythm and No murmur Peripheral Pulses: 2+: Radial (R) and 2+: Radial (L) Abdomen: positive Non-tender and No distention Skin: positive Warm and Dry Extremities: positive No pedal edema and Other (Mild tenderness to palpation over R lateral thigh, without ecchymosis or hematoma) Neurologic/Psychiatric: positive Oriented x3 and Mood/affect nml Lab Results 05/08/25 04:52 05/08/25 04:52 Other Labs: Lab Results x24hrs 05/08/25 05/08/25 05/08/25 Range/Units 11:20 07:42 04:52 WBC 6.8 (4.8-10.8) x10^3/uL RBC 3.42 L (4.20-5.40) 10^6/uL Hgb 10.7 L (12.0-16.0) g/dL Hct 32.6 L (37.0-47.0) % MCV 95.3 (81.0-99.0) fL MCH 31.3 H (27.0-31.0) pg MCHC 32.8 (32.0-36.0) g/dL RDW 14.3 (12.0-15.0) % Plt Count 211 (130-450) 10^3/uL MPV 9.4 (7.9-10.8) fL Neut # (Auto) 4.6 (1.5-6.6) 10^3/uL Lymph # (Auto) 0.9 L (1.5-3.5) 10^3/uL Hunt # (Auto) 0.8 (0.0-1.0) 10^3/uL Eos # (Auto) 0.5 (0.0-0.7) 10^3/uL Baso # (Auto) 0.1 (0.0-0.1) 10^3/uL Absolute Nucleated RBC 0.00 x10^3/uL Nucleated RBC % 0.0 /100WBC Sodium 133 L (135-145) mmol/L Potassium 4.3 (3.5-4.5) mmol/L Chloride 101 (101-111) mmol/L Carbon Dioxide 26 (21-32) mmol/L Anion Gap 6.0 (6-13) BUN 11 (6-20) mg/dL Creatinine 0.8 (0.6-1.3) mg/dL Estimated GFR (MDRD) 72 L (>89) Glucose 209 H (74-104) mg/dL POC Whole Bld Glucose 282 183 (70-100) mg/dL Calcium 8.5 (8.5-10.3) mg/dL Vitamin D 25-Hydroxy (30.0-100.0) ng/mL 05/07/25 05/07/25 05/07/25 Range/Units 20:55 14:21 10:17 WBC (4.8-10.8) x10^3/uL RBC (4.20-5.40) 10^6/uL Hgb (12.0-16.0) g/dL Hct (37.0-47.0) % MCV (81.0-99.0) fL MCH (27.0-31.0) pg MCHC (32.0-36.0) g/dL RDW (12.0-15.0) % Plt Count (130-450) 10^3/uL MPV (7.9-10.8) fL Neut # (Auto) (1.5-6.6) 10^3/uL Lymph # (Auto) (1.5-3.5) 10^3/uL Hunt # (Auto) (0.0-1.0) 10^3/uL Eos # (Auto) (0.0-0.7) 10^3/uL Baso # (Auto) (0.0-0.1) 10^3/uL Absolute Nucleated RBC x10^3/uL Nucleated RBC % /100WBC Sodium (135-145) mmol/L Potassium (3.5-4.5) mmol/L Chloride (101-111) mmol/L Carbon Dioxide (21-32) mmol/L Anion Gap (6-13) BUN (6-20) mg/dL Creatinine (0.6-1.3) mg/dL Estimated GFR (MDRD) (>89) Glucose (74-104) mg/dL POC Whole Bld Glucose 298 146 (70-100) mg/dL Calcium (8.5-10.3) mg/dL Vitamin D 25-Hydroxy 28.3 L (30.0-100.0) ng/mL Diagnostic Imaging Diagnostic Imaging Comments: 05-06-2025 ECHO normal with EF 55-60% and no valvular abnormalities. Other Results/Comments Other Results/Comments: 05-08-2025 Tele Q-T interval 522 ABX Reporting Has patient been on IV antibiotics over the past 48 hours?: No Sepsis Event Note (H) Evaluation Current Stage of Sepsis: Ruled out Assessment/Plan Problem List (1) Femoral neck fracture: Impression: R femoral neck fracture d/t ground level fall secondary to syncope, s/p surgical pinning with ortho. Doing well, hemodynamically stable. Hgb 10.7. -Pain well controlled on ice and scheduled Tylenol -On liquids, advancing as tolerated -Pradexa held pre-operatively -Start Vitamin D supplements (2) Syncope: (3) Dizziness: Impression: Suspect medication related, likely oversuppression from beta-luisa. Also consider hypoglycemia (A1c 5.8, glucose 73). Long QT interval also noted, but unclear is this chronic or new. Last Mg 1.6, K+ 4.3. Cardiac cause less likely, 05-06-2025 ECHO w/o wall or valvular abnormalities. -Monitor telemetry -Replete Mg as needed (4) Atrial fibrillation: Impression: Managed on metoprolol succinate 50mg BID, amiodarone 200mg, and pradexa 150mg. Last seen cardiology for atrial fibrillation >1.5 years ago. Has been bradycardic throughout admission, HR 69 today. -Continue holding metoprolol -Continue amiodarone 200mg -Resume Pradexa post-operatively as able -Follow-up with cardiology as outpatient (5) Constipation: Impression: Last BM several days ago. -Bowel regimen placed, scheduled Miralax and Colace -Encourage fluids as tolerated (6) Type 2 diabetes mellitus treated with insulin: Impression: A1c 5.8. POC glucose 73 recorded during admission, no hypoglycemic episodes on reduced insulin dose. Takes metformin 1g and glargine 20units BID at home. -Continue on reduced glargine 10 units daily + SSI -Maintain blood glucose within 100-180 range -Diabetic educatory consulted, recommend CGM and f/u as outpatient (7) Anxiety: Impression: Well controlled on duloxetine 80mg, clonazepam 0.5mg at nighttime. (8) Hyponatremia: Impression: Resolved. -Continue NS at 100
[2025-05-08] MEDS: DOCUSATE SODIUM 100 MG CAPSULE PO SCH (12:11)
--- NOTE | 2025-05-08 15:30 | PT Plan of Care ---
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 states this has been present s/p gallbladder rupture 1-2yrs ago Assessment Assessment Pt is a 64yo F referred for PT eval s/p R femoral fx on 05/04/25, R hip pinning on , POD1. Fx d/t GLF with headstrike at home. Denies concussion symptoms. Pt lives with who has Alzheimers in [facility] with 1 stair to access, no handrail. Normally indep with mobility however states she had recently progressed from AD use after relearning to walk after prolonged illness related to gallbladder rupture. Of note, pt also presenting with neuro symptoms including truncal tremor, moderate incoordination and dysmetria in BLE, mild incoordination and BUE and difficulty with motor planning. Pt states she is working with a neurologist to address these symptoms but does not yet have a clear dx. Takes carbidopa/ levodopa but states she does not have a PD dx. Please see medical record for further PMH. Cleared for eval by hospitalist and ortho. 50% WB RLE per ortho. Upon PT eval, pt sitting in b/ s chair A&Ox4 on RA, vitals overall WNL at rest. Reports minimal pain at rest and agreeable to participate. Sensation, cap refill and coloration WNL. Active motion of R ankle and quad isometrics present. Requires modAx1 for STS transfer with FWW and min verbal cueing for sequencing. Orthostatic hypotension with significant dizziness in standing, assisted to sit. After seated rest, symptoms improved and pt able to take limited steps fwd but unable to maintain 50% WBing. Pt agreeable to remain sitting upright for improved cardiopulmonary function. PT advised nsg to limit mobility to stand pivot transfer at this time until 50% WBing skill improves. Pt presenting with notable mobility impairments and limitations in activity tolerance and endurance. Pt will benefit from continued skilled PT in acute setting to progress functional mobility and initiate gait training. When medically clear, PT rec dc to SNF for further rehab. Goals Improve bed mobility to: Independent Improve supine to sit to: Modified Independent Improve sit to stand to: Contact Guard Improve pivot transfer ability Contact Guard to: Improve sit to supine to: Contact Guard Improve gait ability to: Min A Assistive Device Used: Front Wheeled Walker Improve Standing Balance to: Good PT Plan of Care Frequency 1-2x/day Duration Until discharge Discharge Recommendations Discharge Location [facility] DC Equipment Recommended Front wheeled walker Transport Needs at Discharge van
--- NOTE | 2025-05-08 16:11 | XRAY Report ---
PROCEDURE: FL OR C-Arm Procedure INDICATIONS: RIGHT HIP PINNING TECHNIQUE: Intraoperative fluoroscopic guidance was provided and low-resolution fluoroscopic spot films were obtained. COMPARISON: None. FINDINGS: Low-resolution intraoperative spot films show sequential placement of femoral neck pins in the right proximal femur IMPRESSION: Fluoroscopic guidance. Reviewed by: Adriel Crockett MD on 05/08/2025 3:08 PM ALFRED Approved by: Adriel Crockett MD on 05/08/2025 3:08 PM ALFRED Station ID: [id number]
[2025-05-08] MEDS: INSULIN LISPRO 300 UNIT/3 ML PEN SUBQ SCH (17:30)
[2025-05-08] MEDS: APIXABAN 5 MG TABLET PO SCH (21:27)
[2025-05-08] MEDS: INSULIN GLARGINE-YFGN 300 UNIT/3 ML PEN SUBQ SCH (21:28)
[2025-05-09 05:43] LABS: HCT - HEMATOCRIT 29.6 % (37.0-47.0); HGB - HEMOGLOBIN 9.5 g/dL (12.0-16.0); MEAN PLATELET VOLUME 9.5 fL (7.9-10.8); NRBC ABSOLUTE COUNT (AUTO) 0.00 x10^3/uL; NUCLEATED RED BLOOD CELLS AUTO 0.0 /100WBC; PLT - PLATELET COUNT 215 10^3/uL (130-450); RED CELL DISTRIBUTION WIDTH 14.3 % (12.0-15.0)
[2025-05-09 05:57] LABS: BUN - BLOOD UREA NITROGEN 10.0 mg/dL (6-20); CARBON DIOXIDE - CO2 26.0 mmol/L (21-32); CREATININE 0.7 mg/dL (0.6-1.3); GFR - MDRD 84.0 (>89)
[2025-05-09] MEDS: ONDANSETRON 4 MG/2 ML VIAL IVP PRN (06:18)
--- NOTE | 2025-05-09 09:21 | Discharge Summary ---
Discharge Summary Admit Date: 05/06/25 Code Status: Attempt Resuscitation DIAGNOSES Admission Diagnoses: R femoral neck fracture Syncope Dizziness Atrial fibrillation Constipation Type 2 diabetes mellitus treated with insulin Anxiety Hyponatremia HPI History of Present Illness: Ms. Carla Lawrence is 64 y/o woman with hx of atrial fibrillation on metoprolol, amiodarone, and Pradaxa, T2DM on insulin, anxiety, and truncal tremors on carbidopa, who was admitted for a R femoral fracture after sustaining a syncopal ground level fall. In the ER, CXR, CT spine, CT head, knee x-ray were all without abnormality. Pelvic CT showed subcapsular fracture of the right femoral neck with mild impaction. Orthopedics was consulted ALLERGIES Allergies Allergy/AdvReac Type Severity Reaction Status Date / Time No Known Drug Allergies Allergy Verified 05/04/25 16:14 MEDICATIONS Ambulatory Orders Medication Instructions Recorded Confirmed amantadine HCl 100 mg tablet 100 mg PO BID 05/05/25 amiodarone 200 mg tablet 200 mg PO DAILY 05/05/2507/18 benazepril 20 mg tablet 20 mg PO DAILY 05/05/2504/24 carbidopa 25 mg-levodopa 100 mg 1 tab PO TID 05/05/25 05/05/25 tablet clonazepam 0.5 mg tablet 0.5 mg PO .qhs PRN sleep 07/1805/05/25 dabigatran etexilate 150 mg capsule 150 mg PO BID 04/2405/05/25 duloxetine 20 mg capsule,delayed 20 mg PO DAILY 05/05/25 release duloxetine 60 mg capsule,delayed 60 mg PO DAILY 05/05/25 release insulin glargine-yfgn 100 unit/mL 20 unit subcut BID 1 05/05/25 (3 mL) subcutaneous pen levothyroxine 25 mcg tablet 25 mcg PO DAILY 05/05/25 metformin 500 mg tablet 1,000 mg PO BID 05/05/2507/18 metoprolol succinate 50 mg 50 mg PO BID 05/05/2505/05 tablet,extended release 24 hr pantoprazole 40 mg tablet,delayed 40 mg PO DAILY 05/0505/05/25 release rosuvastatin 40 mg tablet 40 mg PO DAILY PM 05/05/25 1 PHYSICAL EXAM AT DISCHARGE Vital Signs: Vital Signs x48h Temp Pulse Resp BP Pulse Ox 05/09/25 07:45 36.6 C 74 18 139/70 H 95 General Appearance: positive No acute distress and Alert Eyes Bilateral: positive Normal inspection, PERRL and EOMI ENT: positive ENT inspection nml Neck: positive Nml inspection Respiratory: positive Chest non-tender and No respiratory distress Cardiovascular: positive Regular rate & rhythm and No murmur LABS 05/09/25 05:22 05/09/25 05:22 SEPSIS Current Stage of Sepsis: Ruled out Discharge Plan Discharge Condition: Stable Prescriptions: No Action amantadine HCl 100 mg tablet 100 mg PO BID metformin 500 mg tablet 1,000 mg PO BID amiodarone 200 mg tablet 200 mg PO DAILY metoprolol succinate 50 mg tablet extended release 24 hr 50 mg PO BID clonazepam 0.5 mg tablet 0.5 mg PO .qhs PRN (Reason: sleep) Patient Comments: script written for up to 3 tabs daily, patient states she usually just takes 1 nightly levothyroxine 25 mcg tablet 25 mcg PO DAILY pantoprazole 40 mg tablet,delayed release (DR/EC) 40 mg PO DAILY benazepril 20 mg tablet 20 mg PO DAILY carbidopa-levodopa 25-100 mg tablet 1 tab PO TID rosuvastatin 40 mg tablet 40 mg PO DAILY PM duloxetine 20 mg capsule,delayed release(DR/EC) 20 mg PO DAILY duloxetine 60 mg capsule,delayed release(DR/EC) 60 mg PO DAILY Patient Comments: taken with 20mg caps for a total of 80mg dabigatran etexilate 150 mg capsule 150 mg PO BID insulin glargine-yfgn 100 unit/mL (3 mL) insulin pen 20 unit SUBCUT BID Patient Comments: patient states she takes 20 units 5AM, 20 units 5PM. Print Language: Burmese Patient Instructions: Surg Dc Stand Alone Forms: PCP List Follow-up Care: KRISTY FRIEDMAN DO [Primary Care Provider, Family Practice]
--- NOTE | 2025-05-09 12:13 | PROVIDER PROGRESS NOTE ---
Subjective Prog Note Date Prog Note Date: 05/09/25 Prog Note Time: 12:08 Subjective Pt reports feeling: No change Subjective: Today she reports her pain remains well controlled. Tolerating full diet without nausea or vomit. Was able to take a few steps forward with help of walker yesterday. Awaiting SNF. No bowel movement yet, but reports long history of constipation. Taking bowel regimen without concerns. Current Medications Current Medications Current Medications: Current Medications Generic Name Dose Route Start Last Admin Trade Name Robq PRN Reason Stop Dose Admin Acetaminophen 1,000 mg 05/04/25 22:00 05/09/25 06:21 Acetaminophen 500 Mg Tablet PO 1,000 mg TID TAMRA Administration Amiodarone HCl 200 mg 05/06/25 09:00 05/09/25 07:59 Amiodarone 200 Mg Tablet PO 200 mg DAILY TAMRA Administration Apixaban 5 mg 05/08/25 21:00 05/09/25 07:59 Apixaban 5 Mg Tablet PO 5 mg BID TAMRA Administration Atorvastatin Calcium 80 mg 05/05/25 21:00 05/08/25 21:27 Atorvastatin 40 Mg Tablet PO 80 mg QPM TAMRA Administration Carbidopa/Levodopa 1 tab 05/05/25 22:00 05/09/25 06:21 Carbidopa/Levodopa 25 Mg/100 Mg Tablet PO 1 tab TID TAMRA Administration Clonazepam 0.5 mg 05/05/25 14:47 Clonazepam 0.5 Mg Tablet PO QPM PRN sleep Docusate Sodium 100 mg 05/08/25 12:00 05/09/25 07:59 Docusate Sodium 100 Mg Capsule PO 100 mg DAILY TAMRA Administration Duloxetine HCl 20 mg 05/06/25 09:00 05/09/25 08:04 Duloxetine 20 Mg Capsule PO 20 mg DAILY TAMRA Administration Duloxetine HCl 60 mg 05/06/25 09:00 05/09/25 07:59 Duloxetine 60 Mg Capsule PO 60 mg DAILY TAMRA Administration Hydromorphone HCl 0.5 mg 05/04/25 18:46 05/09/25 06:18 Hydromorphone 0.5 Mg/0.5 Ml Syringe IVP 0.5 mg Q2H PRN Administration Pain 8 to 10 Hydroxyzine Pamoate 25 mg 05/05/25 14:58 05/05/25 15:03 Hydroxyzine Pamoate 25 Mg Capsule PO 25 mg BID PRN Administration Anxiety Insulin Glargine-yfgn 15 unit 05/09/25 21:00 Insulin Glargine-Yfgn 300 Unit/3 Ml Pen SUBQ BID [facility] Insulin Human Lispro 2 - 10 unit 05/08/25 17:00 05/09/25 11:53 Insulin Lispro 300 Unit/3 Ml Pen SUBQ 4 unit 0800,1200,1700,2100 TAMRA Administration Protocol Levothyroxine Sodium 25 mcg 05/06/25 07:00 05/09/25 06:21 Levothyroxine 25 Mcg Tablet PO 25 mcg QDAC TAMRA Administration Lisinopril 20 mg 05/06/25 09:00 05/09/25 09:51 Lisinopril 20 Mg Tablet PO 20 mg DAILY TAMRA Administration Ondansetron HCl 4 mg 05/04/25 18:46 05/07/25 05:18 Ondansetron Odt 4 Mg Tablet TL 4 mg Q6HR PRN Administration Nausea / Vomiting Ondansetron HCl 4 mg 05/04/25 18:46 05/09/25 06:18 Ondansetron 4 Mg/2 Ml Vial IVP 4 mg Q6HR PRN Administration Nausea / Vomiting Pantoprazole Sodium 40 mg 05/06/25 07:00 05/09/25 06:21 Pantoprazole 40 Mg Tablet PO 40 mg QDAC TAMRA Administration Amantadine Hcl 100 1 each 05/05/25 21:00 05/09/25 07:58 Mg Tablet PO 1 each BID TAMRA Administration Polyethylene Glycol 17 gm 05/08/25 12:00 05/09/25 07:58 Polyethylene Glycol 3350 17 Gm Packet PO 17 gm DAILY TAMRA Administration Sodium Chloride 10 ml 05/04/25 18:46 Sodium Chloride Flush 0.9% 10 Ml Syringe IVP PRN PRN NEEDED PER PROVIDER ORDERS Sodium Chloride 10 ml 05/05/25 01:00 05/09/25 08:06 Sodium Chloride Flush 0.9% 10 Ml Syringe IVP 10 ml 0100,0900,1700 TAMRA Administration Objective Vital Signs/Intake & Output Reviewed Vital Signs: Yes Vital Signs: Vital Signs x48h Temp Pulse Resp BP Pulse Ox 05/09/25 07:45 36.6 C 74 18 139/70 H 95 Intake & Output: Intake & Output 05/06/25 05/07/25 05/08/25 05/09/25 23:59 23:59 23:59 23:59 Intake Total 3820 / 3820 2468 / 2468 2680 / 2680 1060 / 1060 Output Total 5350 / 5350 2850 / 2850 960 / 960 1025 / 1025 Balance -1530 / -1530 -382 / -382 1720 / 1720 35 / 35 Objective General Appearance: positive No acute distress and Alert Eyes Bilateral: positive Normal inspection, PERRL and EOMI ENT: positive No signs of dehydration Neck: positive Nml inspection and No JVD Respiratory: positive No respiratory distress and Breath sounds nml; negative Wheezes, Rales or Rhonchi Cardiovascular: positive Regular rate & rhythm and No murmur Peripheral Pulses: 2+: Radial (R) and 2+: Radial (L) Abdomen: positive Non-tender and No distention Skin: positive Warm and Dry Extremities: positive No pedal edema and Other (Mild tenderness to palpation over R lateral thigh, without ecchymosis or hematoma) Neurologic/Psychiatric: positive Oriented x3 and Mood/affect nml Lab Results 05/09/25 05:22 05/09/25 05:22 Other Labs: Lab Results x24hrs 05/09/25 05/09/25 05/09/25 Range/Units 11:26 07:40 05:22 WBC 4.4 L (4.8-10.8) x10^3/uL RBC 3.08 L (4.20-5.40) 10^6/uL Hgb 9.5 L (12.0-16.0) g/dL Hct 29.6 L (37.0-47.0) % MCV 96.1 (81.0-99.0) fL MCH 30.8 (27.0-31.0) pg MCHC 32.1 (32.0-36.0) g/dL RDW 14.3 (12.0-15.0) % Plt Count 215 (130-450) 10^3/uL MPV 9.5 (7.9-10.8) fL Neut # (Auto) 2.7 (1.5-6.6) 10^3/uL Lymph # (Auto) 0.7 L (1.5-3.5) 10^3/uL Fulton # (Auto) 0.5 (0.0-1.0) 10^3/uL Eos # (Auto) 0.4 (0.0-0.7) 10^3/uL Baso # (Auto) 0.1 (0.0-0.1) 10^3/uL Absolute Nucleated RBC 0.00 x10^3/uL Nucleated RBC % 0.0 /100WBC Sodium 133 L (135-145) mmol/L Potassium 3.7 (3.5-4.5) mmol/L Chloride 101 (101-111) mmol/L Carbon Dioxide 26 (21-32) mmol/L Anion Gap 6.0 (6-13) BUN 10 (6-20) mg/dL Creatinine 0.7 (0.6-1.3) mg/dL Estimated GFR (MDRD) 84 L (>89) Glucose 187 H (74-104) mg/dL POC Whole Bld Glucose 211 200 (70-100) mg/dL Calcium 8.4 L (8.5-10.3) mg/dL 05/08/25 05/08/25 Range/Units 20:49 16:33 WBC (4.8-10.8) x10^3/uL RBC (4.20-5.40) 10^6/uL Hgb (12.0-16.0) g/dL Hct (37.0-47.0) % MCV (81.0-99.0) fL MCH (27.0-31.0) pg MCHC (32.0-36.0) g/dL RDW (12.0-15.0) % Plt Count (130-450) 10^3/uL MPV (7.9-10.8) fL Neut # (Auto) (1.5-6.6) 10^3/uL Lymph # (Auto) (1.5-3.5) 10^3/uL [place] # (Auto) (0.0-1.0) 10^3/uL Eos # (Auto) (0.0-0.7) 10^3/uL Baso # (Auto) (0.0-0.1) 10^3/uL Absolute Nucleated RBC x10^3/uL Nucleated RBC % /100WBC Sodium (135-145) mmol/L Potassium (3.5-4.5) mmol/L Chloride (101-111) mmol/L Carbon Dioxide (21-32) mmol/L Anion Gap (6-13) BUN (6-20) mg/dL Creatinine (0.6-1.3) mg/dL Estimated GFR (MDRD) (>89) Glucose (74-104) mg/dL POC Whole Bld Glucose 299 299 (70-100) mg/dL Calcium (8.5-10.3) mg/dL Diagnostic Imaging Diagnostic Imaging Comments: 05-06-2025 ECHO normal with EF 55-60% and no valvular abnormalities. Other Results/Comments Other Results/Comments: 05-08-2025 Tele Q-T interval 522 ABX Reporting Has patient been on IV antibiotics over the past 48 hours?: No Sepsis Event Note (H) Evaluation Current Stage of Sepsis: Ruled out Assessment/Plan Problem List (1) Femoral neck fracture: Impression: R femoral neck fracture d/t ground level fall secondary to syncope, s/p surgical pinning with ortho. Doing well, hemodynamically stable. Slight post-operative anemia. Hgb 10.7 -> 9.5. -Pain well controlled on ice and scheduled Tylenol -On full diet now -Elliquis started while in hospital, will resume her Pradexa as outpatient -Start Vitamin D supplements (2) Syncope: (3) Dizziness: Impression: Improved. Suspect medication related, likely oversuppression from beta-luisa. Also consider hypoglycemia (A1c 5.8, glucose 73). Long QT interval also noted, but unclear is this chronic or new. Last Mg 1.6, K+ 4.3. Cardiac cause less likely, 05-06-2025 ECHO w/o wall or valvular abnormalities. -Replete Mg as needed (4) Atrial fibrillation: Impression: Stable and HR improved to 70s. Managed on metoprolol succinate 50mg BID, amiodarone 200mg, and pradexa 150mg. Last seen cardiology for atrial fibrillation >1.5 years ago. -Continue holding metoprolol -Continue amiodarone 200mg -On Eliquis -Resume Pradexa as outpatient -Follow-up with cardiology as outpatient (5) Constipation: Impression: Last BM several days ago. -Bowel regimen placed, scheduled Miralax and Colace -Encourage mobility as tolerated (6) Type 2 diabetes mellitus treated with insulin: Impression: Has been hyperglycemic with resumption of diet. A1c 5.8. POC glucose 73 recorded during admission, no hypoglycemic episodes on reduced insulin dose. Takes metformin 1g and glargine 20units BID at home. -Continue glargine, increased to 15 units daily + SSI -Maintain blood glucose within 100-180 range -Diabetic educatory consulted, recommend CGM and f/u as outpatient (7) Anxiety: Impression: Well controlled on duloxetine 80mg, clonazepam 0.5mg at nighttime. (8) Hyponatremia: Impression: Resolved. -Continue NS at 100
[2025-05-09] MEDS: CHOLECALCIFEROL 25 MCG TABLET PO SCH (17:24)
[2025-05-09] MEDS: CALCIUM CARBONATE CHEW 500 MG TABLET PO SCH (21:21)
[2025-05-09] MEDS: INSULIN GLARGINE-YFGN 300 UNIT/3 ML PEN SUBQ SCH (21:23)
[2025-05-09] MEDS: INSULIN LISPRO 300 UNIT/3 ML PEN SUBQ ONE (21:37)
[2025-05-09] MEDS: INSULIN LISPRO 300 UNIT/3 ML PEN SUBQ SCH (21:38)
[2025-05-10 06:05] LABS: HCT - HEMATOCRIT 30.9 % (37.0-47.0); HGB - HEMOGLOBIN 9.7 g/dL (12.0-16.0); MEAN PLATELET VOLUME 9.4 fL (7.9-10.8); NRBC ABSOLUTE COUNT (AUTO) 0.00 x10^3/uL; NUCLEATED RED BLOOD CELLS AUTO 0.0 /100WBC; PLT - PLATELET COUNT 234 10^3/uL (130-450); RED CELL DISTRIBUTION WIDTH 14.6 % (12.0-15.0)
[2025-05-10 06:20] LABS: BUN - BLOOD UREA NITROGEN 8.0 mg/dL (6-20); CARBON DIOXIDE - CO2 28.0 mmol/L (21-32); CREATININE 0.7 mg/dL (0.6-1.3); GFR - MDRD 84.0 (>89)
--- NOTE | 2025-05-10 11:25 | PROVIDER PROGRESS NOTE ---
Subjective Prog Note Date Prog Note Date: 05/10/25 Subjective Subjective: No BM for 6 days. She was able to void post hopson removal yesterday. Current Medications Current Medications Current Medications: Current Medications Generic Name Dose Route Start Last Admin Trade Name Freq PRN Reason Stop Dose Admin Acetaminophen 1,000 mg 05/04/25 22:00 05/10/25 06:01 Acetaminophen 500 Mg Tablet PO 1,000 mg TID TAMRA Administration Amiodarone HCl 200 mg 05/06/25 09:00 05/10/25 08:43 Amiodarone 200 Mg Tablet PO 200 mg DAILY TAMRA Administration Apixaban 5 mg 05/08/25 21:00 05/10/25 08:44 Apixaban 5 Mg Tablet PO 5 mg BID TAMRA Administration Atorvastatin Calcium 80 mg 05/05/25 21:00 05/09/25 21:20 Atorvastatin 40 Mg Tablet PO 80 mg QPM TAMRA Administration Calcium Carbonate/Glycine 500 mg 05/09/25 21:00 05/10/25 08:45 Calcium Carbonate Chew 500 Mg Tablet PO 500 mg BID TAMRA Administration Carbidopa/Levodopa 1 tab 05/05/25 22:00 05/10/25 06:02 Carbidopa/Levodopa 25 Mg/100 Mg Tablet PO 1 tab TID TAMRA Administration Cholecalciferol 50 mcg 05/09/25 17:00 05/10/25 08:44 Cholecalciferol 25 Mcg Tablet PO 50 mcg DAILY TAMRA Administration Clonazepam 0.5 mg 05/05/25 14:47 Clonazepam 0.5 Mg Tablet PO QPM PRN sleep Docusate Sodium 100 mg 05/08/25 12:00 05/10/25 08:43 Docusate Sodium 100 Mg Capsule PO 100 mg DAILY TAMRA Administration Duloxetine HCl 20 mg 05/06/25 09:00 05/10/25 10:14 Duloxetine 20 Mg Capsule PO 20 mg DAILY TAMRA Administration Duloxetine HCl 60 mg 05/06/25 09:00 05/10/25 08:43 Duloxetine 60 Mg Capsule PO 60 mg DAILY TAMRA Administration Hydromorphone HCl 0.5 mg 05/04/25 18:46 05/09/25 06:18 Hydromorphone 0.5 Mg/0.5 Ml Syringe IVP 0.5 mg Q2H PRN Administration Pain 8 to 10 Hydroxyzine Pamoate 25 mg 05/05/25 14:58 05/05/25 15:03 Hydroxyzine Pamoate 25 Mg Capsule PO 25 mg BID PRN Administration Anxiety Insulin Glargine-yfgn 15 unit 05/09/25 21:00 05/10/25 10:15 Insulin Glargine-Yfgn 300 Unit/3 Ml Pen SUBQ 15 unit BID TAMRA Administration Insulin Human Lispro 3 - 11 unit 05/09/25 21:30 05/10/25 08:50 Insulin Lispro 300 Unit/3 Ml Pen SUBQ 3 unit 0800,1200,1700,2100 TAMRA Administration Protocol Levothyroxine Sodium 25 mcg 05/06/25 07:00 05/10/25 06:02 Levothyroxine 25 Mcg Tablet PO 25 mcg QDAC TMARA Administration Lisinopril 20 mg 05/06/25 09:00 05/10/25 08:48 Lisinopril 20 Mg Tablet PO 20 mg DAILY TAMRA Administration Ondansetron HCl 4 mg 05/04/25 18:46 05/07/25 05:18 Ondansetron Odt 4 Mg Tablet TL 4 mg Q6HR PRN Administration Nausea / Vomiting Ondansetron HCl 4 mg 05/04/25 18:46 05/09/25 06:18 Ondansetron 4 Mg/2 Ml Vial IVP 4 mg Q6HR PRN Administration Nausea / Vomiting Pantoprazole Sodium 40 mg 05/06/25 07:00 05/10/25 06:02 Pantoprazole 40 Mg Tablet PO 40 mg QDAC TAMRA Administration Amantadine Hcl 100 1 each 05/05/25 21:00 05/10/25 10:18 Mg Tablet PO 1 each BID TAMRA Administration Polyethylene Glycol 17 gm 05/10/25 21:00 Polyethylene Glycol 3350 17 Gm Packet PO BID TAMRA Sodium Chloride 10 ml 05/04/25 18:46 Sodium Chloride Flush 0.9% 10 Ml Syringe IVP PRN PRN NEEDED PER PROVIDER ORDERS Sodium Chloride 10 ml 05/05/25 01:00 05/10/25 10:15 Sodium Chloride Flush 0.9% 10 Ml Syringe IVP 10 ml 0100,0900,1700 TAMRA Administration Objective Vital Signs/Intake & Output Reviewed Vital Signs: Yes Vital Signs: Vital Signs x48h Temp Pulse Resp BP Pulse Ox 05/10/25 08:47 36.7 C 82 18 128/69 94 Intake & Output: Intake & Output 05/07/25 05/08/25 05/09/25 05/10/25 23:59 23:59 23:59 23:59 Intake Total 2468 / 2468 2680 / 2680 2089 / 2089 500 / 500 Output Total 2850 / 2850 960 / 960 2024 925 / 925 Balance -382 / -382 1720 / 1720 65 / 65 -425 / -425 Objective General Appearance: positive No acute distress and Alert Eyes Bilateral: positive Normal inspection ENT: positive ENT inspection nml Neck: positive Nml inspection Respiratory: positive No respiratory distress and Breath sounds nml; negative Wheezes, Rales or Rhonchi Cardiovascular: positive Regular rate & rhythm and No murmur Peripheral Pulses: 2+: Radial (R) and 2+: Radial (L) Abdomen: positive No distention Skin: positive Warm and Dry Extremities: positive No pedal edema and Other (Mild tenderness to palpation over R lateral thigh, without ecchymosis or hematoma) Neurologic/Psychiatric: positive Oriented x3 and Mood/affect nml Lab Results 05/10/25 05:37 05/10/25 05:37 Other Labs: Lab Results x24hrs 05/10/25 05/10/25 05/09/25 Range/Units 07:50 05:37 21:12 WBC 4.9 (4.8-10.8) x10^3/uL RBC 3.24 L (4.20-5.40) 10^6/uL Hgb 9.7 L (12.0-16.0) g/dL Hct 30.9 L (37.0-47.0) % MCV 95.4 (81.0-99.0) fL MCH 29.9 (27.0-31.0) pg MCHC 31.4 L (32.0-36.0) g/dL RDW 14.6 (12.0-15.0) % Plt Count 234 (130-450) 10^3/uL MPV 9.4 (7.9-10.8) fL Neut # (Auto) 2.7 (1.5-6.6) 10^3/uL Lymph # (Auto) 1.0 L (1.5-3.5) 10^3/uL Howard # (Auto) 0.6 (0.0-1.0) 10^3/uL Eos # (Auto) 0.6 (0.0-0.7) 10^3/uL Baso # (Auto) 0.1 (0.0-0.1) 10^3/uL Absolute Nucleated RBC 0.00 x10^3/uL Nucleated RBC % 0.0 /100WBC Sodium 138 (135-145) mmol/L Potassium 3.6 (3.5-4.5) mmol/L Chloride 103 (101-111) mmol/L Carbon Dioxide 28 (21-32) mmol/L Anion Gap 7.0 (6-13) BUN 8 (6-20) mg/dL Creatinine 0.7 (0.6-1.3) mg/dL Estimated GFR (MDRD) 84 L (>89) Glucose 126 H (74-104) mg/dL POC Whole Bld Glucose 149 380 (70-100) mg/dL Calcium 8.8 (8.5-10.3) mg/dL 05/09/25 05/09/25 05/09/25 Range/Units 20:47 16:42 11:26 WBC (4.8-10.8) x10^3/uL RBC (4.20-5.40) 10^6/uL Hgb (12.0-16.0) g/dL Hct (37.0-47.0) % MCV (81.0-99.0) fL MCH (27.0-31.0) pg MCHC (32.0-36.0) g/dL RDW (12.0-15.0) % Plt Count (130-450) 10^3/uL MPV (7.9-10.8) fL Neut # (Auto) (1.5-6.6) 10^3/uL Lymph # (Auto) (1.5-3.5) 10^3/uL Howard # (Auto) (0.0-1.0) 10^3/uL Eos # (Auto) (0.0-0.7) 10^3/uL Baso # (Auto) (0.0-0.1) 10^3/uL Absolute Nucleated RBC x10^3/uL Nucleated RBC % /100WBC Sodium (135-145) mmol/L Potassium (3.5-4.5) mmol/L Chloride (101-111) mmol/L Carbon Dioxide (21-32) mmol/L Anion Gap (6-13) BUN (6-20) mg/dL Creatinine (0.6-1.3) mg/dL Estimated GFR (MDRD) (>89) Glucose (74-104) mg/dL POC Whole Bld Glucose 341 240 211 (70-100) mg/dL Calcium (8.5-10.3) mg/dL Diagnostic Imaging Diagnostic Imaging Comments: 05-06-2025 ECHO normal with EF 55-60% and no valvular abnormalities. Other Results/Comments Other Results/Comments: 05-08-2025 Tele Q-T interval 522 Sepsis Event Note (H) Evaluation Current Stage of Sepsis: Ruled out Assessment/Plan Problem List (1) Femoral neck fracture: Impression: R femoral neck fracture d/t ground level fall secondary to syncope, s/p surgical pinning with ortho. Doing well, hemodynamically stable. Slight post-operative anemia. Hgb 10.7 -> 9.7. -Pain well controlled on ice and scheduled Tylenol -On full diet now -Elliquis started while in hospital, will resume her Pradexa as outpatient -Start Vitamin D supplements Lab holiday tomorrow, she is stable and medically clear for SNF. (2) Syncope: Impression: injury caused by a syncopal fall. no abnormalities seen on tele for several days. that has now been dc'ed. i wonder if this syncope was orthostatic in nature as she describes bending over to get a casserole dish out of a lower cabinet. Metoprolol has been dc'ed and she is doing well. (3) Dizziness: Impression: Improved. Suspect medication related, likely oversuppression from beta-liusa. Also consider hypoglycemia (A1c 5.8, glucose 73). Long QT interval also noted, but unclear is this chronic or new. Last Mg 1.6, K+ 4.3. Cardiac cause less likely, 05-06-2025 ECHO w/o wall or valvular abnormalities. Mag slightly low, will start oral repletion, nick as this can help with releif of constipation as well. (4) Atrial fibrillation: Impression: Stable and HR improved to 70s. Managed on metoprolol succinate 50mg BID, amiodarone 200mg, and pradexa 150mg. Last seen cardiology for atrial fibrillation >1.5 years ago. -Continue holding metoprolol -Continue amiodarone 200mg -On Eliquis -Resume Pradexa as outpatient -Follow-up with cardiology as outpatient (5) Constipation: Impression: Last BM several days ago. -Bowel regimen placed, scheduled Miralax and Colace -Encourage mobility as tolerated - adding Mag oxide for borderline low Mag level and to help w motility, (6) Type 2 diabetes mellitus treated with insulin: Impression: Has been hyperglycemic with resumption of diet. A1c 5.8. POC glucose 73 recorded during admission, no hypoglycemic episodes on reduced insulin dose. Takes metformin 1g and glargine 20units BID at home. -Continue glargine, increased to 15 units BID+ SSI -Maintain blood glucose within 100-180 range -Diabetic educatory consulted, recommend CGM and f/u as outpatient (7) Anxiety: Impression: Well controlled on duloxetine 80mg, clonazepam 0.5mg at nighttime. (8) Hyponatremia: Impression: Resolved. Lab holiday tomorrow. This patient is medically clear. I have spent 26 minutes in the care of this patient today. This includes time [id number], review and ordering of diagnostic imaging and laboratory studies.
[2025-05-10] MEDS: MAGNESIUM OXIDE 400 MG TABLET PO SCH (16:21)
[2025-05-10] MEDS: SODIUM CHLORIDE FLUSH 0.9% 10 ML SYRINGE IVP PRN (16:23)
[2025-05-11] MEDS ORDERED: oxyCODONE 5 MG TABLET PO PRN (13:59)
--- NOTE | 2025-05-11 14:05 | PROVIDER PROGRESS NOTE ---
Subjective Prog Note Date Prog Note Date: 05/11/25 Subjective Subjective: Pain is controlled. She is doing well and wants to d c to [facility]. Wants to get home to her after that. Current Medications Current Medications Current Medications: Current Medications Generic Name Dose Route Start Last Admin Trade Name Freq PRN Reason Stop Dose Admin Acetaminophen 1,000 mg 05/04/25 22:00 05/11/25 13:32 Acetaminophen 500 Mg Tablet PO 1,000 mg TID TAMRA Administration Amiodarone HCl 200 mg 05/06/25 09:00 05/11/25 08:20 Amiodarone 200 Mg Tablet PO 200 mg DAILY TAMRA Administration Apixaban 5 mg 05/08/25 21:00 05/11/25 08:20 Apixaban 5 Mg Tablet PO 5 mg BID TAMRA Administration Atorvastatin Calcium 80 mg 05/05/25 21:00 05/10/25 21:15 Atorvastatin 40 Mg Tablet PO 80 mg QPM TAMRA Administration Calcium Carbonate/Glycine 500 mg 05/09/25 21:00 05/11/25 08:20 Calcium Carbonate Chew 500 Mg Tablet PO 500 mg BID TAMRA Administration Carbidopa/Levodopa 1 tab 05/05/25 22:00 05/11/25 13:32 Carbidopa/Levodopa 25 Mg/100 Mg Tablet PO 1 tab TID TAMRA Administration Cholecalciferol 50 mcg 05/09/25 17:00 05/11/25 08:20 Cholecalciferol 25 Mcg Tablet PO 50 mcg DAILY TAMRA Administration Clonazepam 0.5 mg 05/05/25 14:47 Clonazepam 0.5 Mg Tablet PO QPM PRN sleep Docusate Sodium 100 mg 05/08/25 12:00 05/11/25 08:20 Docusate Sodium 100 Mg Capsule PO 100 mg DAILY TAMRA Administration Duloxetine HCl 20 mg 05/06/25 09:00 05/11/25 08:20 Duloxetine 20 Mg Capsule PO 20 mg DAILY TAMRA Administration Duloxetine HCl 60 mg 05/06/25 09:00 05/11/25 08:20 Duloxetine 60 Mg Capsule PO 60 mg DAILY TAMRA Administration Hydromorphone HCl 0.5 mg 05/04/25 18:46 05/09/25 06:18 Hydromorphone 0.5 Mg/0.5 Ml Syringe IVP 0.5 mg Q2H PRN Administration Pain 8 to 10 Hydroxyzine Pamoate 25 mg 05/05/25 14:58 05/05/25 15:03 Hydroxyzine Pamoate 25 Mg Capsule PO 25 mg BID PRN Administration Anxiety Insulin Glargine-yfgn 15 unit 05/09/25 21:00 05/11/25 08:18 Insulin Glargine-Yfgn 300 Unit/3 Ml Pen SUBQ 15 unit BID TAMRA Administration Insulin Human Lispro 3 - 11 unit 05/09/25 21:30 05/11/25 11:56 Insulin Lispro 300 Unit/3 Ml Pen SUBQ 7 unit 0800,1200,1700,2100 TAMRA Administration Protocol Levothyroxine Sodium 25 mcg 05/06/25 07:00 05/11/25 06:06 Levothyroxine 25 Mcg Tablet PO 25 mcg QDAC TAMRA Administration Lisinopril 20 mg 05/06/25 09:00 05/11/25 08:20 Lisinopril 20 Mg Tablet PO 20 mg DAILY TAMRA Administration Magnesium Oxide 400 mg 05/10/25 16:00 05/11/25 08:20 Magnesium Oxide 400 Mg Tablet PO 400 mg DAILYWM TAMRA Administration Ondansetron HCl 4 mg 05/04/25 18:46 05/07/25 05:18 Ondansetron Odt 4 Mg Tablet TL 4 mg Q6HR PRN Administration Nausea / Vomiting Ondansetron HCl 4 mg 05/04/25 18:46 05/09/25 06:18 Ondansetron 4 Mg/2 Ml Vial IVP 4 mg Q6HR PRN Administration Nausea / Vomiting Pantoprazole Sodium 40 mg 05/06/25 07:00 05/11/25 06:06 Pantoprazole 40 Mg Tablet PO 40 mg QDAC TAMRA Administration Amantadine Hcl 100 1 each 05/05/25 21:00 05/11/25 08:21 Mg Tablet PO 1 each BID TAMRA Administration Polyethylene Glycol 17 gm 05/10/25 21:00 05/11/25 08:20 Polyethylene Glycol 3350 17 Gm Packet PO 17 gm BID TAMRA Administration Sodium Chloride 10 ml 05/04/25 18:46 05/10/25 16:23 Sodium Chloride Flush 0.9% 10 Ml Syringe IVP 10 ml PRN PRN Administration NEEDED PER PROVIDER ORDERS Sodium Chloride 10 ml 05/05/25 01:00 05/11/25 08:21 Sodium Chloride Flush 0.9% 10 Ml Syringe IVP 10 ml 0100,0900,1700 TAMRA Administration Objective Vital Signs/Intake & Output Reviewed Vital Signs: Yes Vital Signs: Vital Signs x48h Temp Pulse Resp BP Pulse Ox 05/11/25 08:59 36.5 C 72 16 159/78 H 92 Intake & Output: Intake & Output 05/08/25 05/09/25 05/10/25 05/11/25 23:59 23:59 23:59 23:59 Intake Total 2680 / 2680 2090 / 2090 800 / 800 200 / 200 Output Total 960 / 960 2024 1525 / 1525 650 / 650 Balance 1720 / 1720 65 / 65 -725 / -725 -450 / -450 Objective General Appearance: positive No acute distress Eyes Bilateral: positive Normal inspection ENT: positive ENT inspection nml Neck: positive Nml inspection Respiratory: positive No respiratory distress and Breath sounds nml; negative Wheezes, Rales or Rhonchi Cardiovascular: positive Regular rate & rhythm Peripheral Pulses: 2+: Radial (R) and 2+: Radial (L) Abdomen: positive No distention Skin: positive Warm, Dry and Other (incisional dressing changed today. There was some blood on the dressing, no active bleeding. the incision looks clean w/o erythema or dc. ) Extremities: positive No pedal edema and Other (Mild tenderness to palpation over R lateral thigh, without ecchymosis or hematoma) Neurologic/Psychiatric: positive Oriented x3 and Mood/affect nml Lab Results 05/10/25 05:37 05/10/25 05:37 Other Labs: Lab Results x24hrs 05/11/25 05/11/25 05/10/25 Range/Units 11:25 07:46 20:41 POC Whole Bld Glucose 242 278 276 (70-100) mg/dL 05/10/25 Range/Units 16:24 POC Whole Bld Glucose 263 (70-100) mg/dL Diagnostic Imaging Diagnostic Imaging Comments: 05-06-2025 ECHO normal with EF 55-60% and no valvular abnormalities. Other Results/Comments Other Results/Comments: 05-08-2025 Tele Q-T interval 522 Sepsis Event Note (H) Evaluation Current Stage of Sepsis: Ruled out Assessment/Plan Problem List (1) Femoral neck fracture: Impression: R femoral neck fracture d/t ground level fall secondary to syncope, s/p surgical pinning with ortho. Doing well, hemodynamically stable. Slight post-operative anemia. Hgb 10.7 -> 9.7. -Pain well controlled on ice and scheduled Tylenol -On full diet now -Elliqunikhil started while in hospital, will resume her Pradexa as outpatient -Start Vitamin D supplements she is stable and medically clear for SNF. (2) Syncope: Impression: injury caused by a syncopal fall. no abnormalities seen on tele for several days. that has now been dc'ed. i wonder if this syncope was orthostatic in nature as she describes bending over to get a casserole dish out of a lower cabinet. Metoprolol has been dc'ed and she is doing well. (3) Dizziness: Impression: Improved. Suspect medication related, likely oversuppression from beta-luisa. Also consider hypoglycemia (A1c 5.8, glucose 73). Long QT interval also noted, but unclear is this chronic or new. Last Mg 1.6, K+ 4.3. Cardiac cause less likely, 05-06-2025 ECHO w/o wall or valvular abnormalities. Mag slightly low, will start oral repletion, nick as this can help with releif of constipation as well. vaishali mag in the AM. (4) Atrial fibrillation: Impression: Stable and HR improved to 70s. Managed on metoprolol succinate 50mg BID, amiodarone 200mg, and pradexa 150mg. Last seen cardiology for atrial fibrillation >1.5 years ago. -Continue holding metoprolol -Continue amiodarone 200mg -On Eliquis -Resume Pradexa as outpatient -Follow-up with cardiology as outpatient (5) Constipation: Impression: Last BM several days ago. -Bowel regimen placed, scheduled Miralax and Colace -Encourage mobility as tolerated - adding Mag oxide for borderline low Mag level and to help w motility, (6) Type 2 diabetes mellitus treated with insulin: Impression: Has been hyperglycemic with resumption of diet. A1c 5.8. POC glucose 73 recorded during admission, no hypoglycemic episodes on reduced insulin dose. Takes metformin 1g and glargine 20units BID at home. -Continue glargine, increased to 15 units BID+ SSI -Maintain blood glucose within 100-180 range -primary health care nurse consulted, recommend CGM and f/u as outpatient (7) Anxiety: Impression: Well controlled on duloxetine 80mg, clonazepam 0.5mg at nighttime. (8) Hyponatremia: Impression: Resolved. This patient's diagnosis and treatment plan was discussed this AM with attending physician as a part of multi disciplinary rounding meeting. . I have spent 30 minutes in the care of this patient today. This includes time [id number], review and ordering of diagnostic imaging and laboratory studies.
--- NOTE | 2025-05-11 16:55 | Discharge Summary ---
"Discharge Summary Admit Date: 05/04/25 Discharge Date: 05/12/25 Discharging Provider: Shantel Rodriguez PA-C Primary Care Provider: Devin Friedman MD Code Status: Do Not Attempt Resuscitation DIAGNOSES Discharge Diagnoses with Status of Each Condition: Right femoral neck fracture, 50% weightbearing right lower extremity until released by orthopedics Syncopal fall Atrial fibrillation, chronic and controlled Constipation, chronic Type 2 diabetes mellitus, chronic and controlled Anxiety, chronic and controlled Hyponatremia, resolved. HPI History of Present Illness: 64-year-old female with history of atrial fibrillation on metoprolol and Pradaxa who presents with dizziness episodes leading to a fall. She reports that she has had several episodes of dizziness/fainting, where she will fall forward. This last episode, she became dizzy, lightheaded, and fell forward hitting her head and her hip. She was evaluated in the field by EMS, and she was unable to stand S/T right hip pain. Denies fever, chills, chest pain, dyspnea, palpitations, bowel/bladder abnormality. She reported a mild posterior headache and severe pain in her right hip she reports echocardiogram at the end of last year with no abnormalities. In the ER, CXR, CT spine, CT head, knee x-ray were all without abnormality. Pelvic CT showed subcapsular fracture of the right femoral neck with mild impaction. Orthopedics was consulted by the ER provider, with plans for OR tomorrow. Hospitalist was contacted for admission for femoral neck fracture CONSULTS | PROCEDURES Consultations: Orthopedics, Dr. Wagner Lou. Procedures: Right hip pinning, 05/07/2025. HOSPITAL COURSE Hospital Course: (1) Femoral neck fracture: R femoral neck fracture d/t ground level fall secondary to syncope, s/p surgical pinning with ortho. Doing well, hemodynamically stable. Slight post-operative anemia. Hgb 10.7 -> 9.7. -Pain well controlled on ice and scheduled Tylenol -On full diet now -Elliquis started while in hospital, will resume her Pradexa as outpatient -Start Vitamin D supplements she is stable and medically clear for SNF. (2) Syncope: injury caused by a syncopal fall. no abnormalities seen on tele for several days. that has now been nd'ed. i wonder if this syncope was orthostatic in nature as she describes bending over to get a casserole dish out of a lower cabinet. Metoprolol has been dc'ed and she is doing well off of this. She has a truncal tremor that she is seeing neurology about. She does not have a Parkinson's dx, but is on Sinemet. (3) Dizziness: Improved. Suspect medication related, likely oversuppression from beta-luisa. Also consider hypoglycemia (A1c 5.8, glucose 73). Long QT interval also noted, but unclear is this chronic or new. Last Mg 1.6, K+ 4.3. Cardiac cause less likely, 05-06-2025 ECHO w/o wall or valvular abnormalities. Mag slightly low, will start oral repletion, nick as this can help with relief of constipation as well. (4) Atrial fibrillation: Stable and HR improved to 70s. Managed on metoprolol succinate 50mg BID, amiodarone 200mg, and pradexa 150mg. Last seen cardiology for atrial fibrillation >1.5 years ago. -Continue holding metoprolol, would recommend against restarting this -Continue amiodarone 200mg -On Eliquis -Resume Pradaxa as outpatient -Follow-up with cardiology as outpatient (5) Constipation: Last BM several days ago. She struggles with chronic constipation at home -Bowel regimen placed, scheduled Miralax and Colace -Encourage mobility as tolerated - adding Mag oxide for borderline low Mag level and to help w motility, (6) Type 2 diabetes mellitus treated with insulin: Has been hyperglycemic with resumption of diet. A1c 5.8. POC glucose 73 recorded during admission, no hypoglycemic episodes on reduced insulin dose. Takes metformin 1g and glargine 20units BID at home. -Continue glargine, decreased from home dose to 15 units BID -Maintain blood glucose within 100-180 range -rn diabetes educator consulted, recommend CGM and f/u as outpatient (7) Anxiety: Well controlled on duloxetine 80mg, clonazepam 0.5mg at nighttime. (8) Hyponatremia: Laboratory Tests 05/04/25 05/05/25 05/10/25 16:37 05:14 05:37 Sodium 130 L 127 L 138 Resolved. ALLERGIES Allergies Allergy/AdvReac Type Severity Reaction Status Date / Time No Known Drug Allergies Allergy Verified 05/04/25 16:14 MEDICATIONS Ambulatory Orders Medication Instructions Recorded Confirmed amantadine HCl 100 mg tablet 100 mg PO BID 10/12/25 10 /12/25 amiodarone 200 mg tablet 200 mg PO DAILY 05/05/2507/18 benazepril 20 mg tablet 20 mg PO DAILY 05/05/2504/24 carbidopa 25 mg-levodopa 100 mg 1 tab PO TID 05/05/25 05/05/25 tablet clonazepam 0.5 mg tablet 0.5 mg PO .qhs PRN sleep 07/1805/05/25 dabigatran etexilate 150 mg capsule 150 mg PO BID 04/2405/05/25 duloxetine 20 mg capsule,delayed 20 mg PO DAILY 05/05/25 release duloxetine 60 mg capsule,delayed 60 mg PO DAILY 05/05/25 release levothyroxine 25 mcg tablet 25 mcg PO DAILY 05/05/25 1 metformin 500 mg tablet 1,000 mg PO BID 05/05/2507/18 pantoprazole 40 mg tablet,delayed 40 mg PO DAILY 05/0505/05/25 release rosuvastatin 40 mg tablet 40 mg PO DAILY PM 05/05/25 1 acetaminophen 500 mg tablet 1,000 mg (2 x 500 mg) PO T ID #90 05/11/25 (Tylenol Extra Strength) tabs calcium carbonate 500 mg (2.5 x 200 mg calcium (500 05/11/25 mg)) PO BID #60 tabs cholecalciferol (vitamin D3) 25 50 mcg (2 x 25 mcg (1, 000 unit)) 05/11/25 mcg (1,000 unit) tablet PO DAILY #30 tabs insulin glargine-yfgn 100 unit/mL 15 unit (0.15 mL) alejandra bcut BID #15 mL 05/11/25 (3 mL) subcutaneous pen magnesium oxide 400 mg (241.3 mg 400 mg PO DAILYWM #60 tabs 05/11/25 magnesium) tablet oxycodone 5 mg tablet 5 mg PO Q4HR PRN Moderate Pa in 05/11/25 (Level 4-6) #30 tabs PHYSICAL EXAM AT DISCHARGE Vital Signs: Vital Signs x48h Temp Pulse Resp BP Pulse Ox 05/12/25 09:35 36.4 C L 77 16 160/78 H 97 Physical Exam Other/Comments: General Appearance: positive No acute distress Eyes Bilateral: positive Normal inspection ENT: positive ENT inspection nml Neck: positive Nml inspection Respiratory: positive No respiratory distress and Breath sounds nml; negative Wheezes, Rales or Rhonchi Cardiovascular: positive Regular rate & rhythm Abdomen: positive No distention Skin: positive Warm, Dry and Other (incisional dressing changed. There was some blood on the dressing, no active bleeding. the incision looks clean w/o erythema or dc. ) Extremities: positive No pedal edema and Other (Mild tenderness to palpation over R lateral thigh, without ecchymosis or hematoma) Neurologic/Psychiatric: positive Oriented x3 and Mood/affect nml LABS 05/12/25 05:25 05/12/25 05:25 QUALITY (Female Hip Fx Only) Was patient sent home on osteoporosis medication?: Yes (Ca and Vit D started) FOLLOW UP Follow Up: Dr Lou 2 weeks post op TIME SPENT Time Spent in Discharge (Minutes): 50 Discharge Plan Discharge Patient Disposition: 03 [facility] DC/Xfer Condition: Stable Prescriptions: New acetaminophen [Tylenol Extra Strength] 500 mg Tablet 1,000 mg PO TID Qty: 90 0RF calcium carbonate 200 mg calcium (500 mg) Tablet,Chewable 500 mg PO BID Qty: 60 0RF cholecalciferol (vitamin D3) 25 mcg (1,000 unit) Tablet 50 mcg PO DAILY Qty: 30 0RF magnesium oxide 400 mg (241.3 mg magnesium) Tablet 400 mg PO DAILYWM Qty: 60 0RF oxycodone 5 mg Tablet 5 mg PO Q4HR PRN (Reason: Moderate Pain (Level 4-6)) Qty: 30 0RF insulin glargine-yfgn 100 unit/mL (3 mL) Insulin Pen 15 unit subcut BID Qty: 15 0RF Continued amantadine HCl 100 mg tablet 100 mg PO BID metformin 500 mg tablet 1,000 mg PO BID amiodarone 200 mg tablet 200 mg PO DAILY clonazepam 0.5 mg tablet 0.5 mg PO .qhs PRN (Reason: sleep) Patient Comments: script written for up to 3 tabs daily, patient states she usually just takes 1 nightly levothyroxine 25 mcg tablet 25 mcg PO DAILY pantoprazole 40 mg tablet,delayed release (DR/EC) 40 mg PO DAILY benazepril 20 mg tablet 20 mg PO DAILY carbidopa-levodopa 25-100 mg tablet 1 tab PO TID rosuvastatin 40 mg tablet 40 mg PO DAILY PM duloxetine 20 mg capsule,delayed release(DR/EC) 20 mg PO DAILY duloxetine 60 mg capsule,delayed release(DR/EC) 60 mg PO DAILY Patient Comments: taken with 20mg caps for a total of 80mg dabigatran etexilate 150 mg capsule 150 mg PO BID Discontinued metoprolol succinate 50 mg tablet extended release 24 hr 50 mg PO BID insulin glargine-yfgn 100 unit/mL (3 mL) insulin pen 20 unit SUBCUT BID Patient Comments: patient states she takes 20 units 5AM, 20 units 5PM. Activity Restrictions: 50% weightbearing RLE Diet: Diabetic Health Concerns: (1) Femoral neck fracture: R femoral neck fracture d/t ground level fall secondary to syncope, s/p surgical pinning with ortho. Doing well, hemodynamically stable. Slight post-operative anemia. Hgb 10.7 -> 9.7. -Pain well controlled on ice and scheduled Tylenol -On full diet now -Elliquis started while in hospital, will resume her Pradexa as outpatient -Start Vitamin D supplements she is stable and medically clear for SNF. (2) Syncope: injury caused by a syncopal fall. no abnormalities seen on tele for several days. that has now been dc'ed. i wonder if this syncope was orthostatic in nature as she describes bending over to get a casserole dish out of a lower cabinet. Metoprolol has been dc'ed and she is doing well off of this. She has a truncal tremor that she is seeing neurology about. She does not have a Parkinson's dx, but is on Sinemet. (3) Dizziness: Impression: Improved. Suspect medication related, likely oversuppression from beta-luisa. Also consider hypoglycemia (A1c 5.8, glucose 73). Long QT interval also noted, but unclear is this chronic or new. Last Mg 1.6, K+ 4.3. Cardiac cause less likely, 05-06-2025 ECHO w/o wall or valvular abnormalities. Mag slightly low, will start oral repletion, nick as this can help with relief of constipation as well. (4) Atrial fibrillation: Impression: Stable and HR improved to 70s. Managed on metoprolol succinate 50mg BID, amiodarone 200mg, and pradexa 150mg. Last seen cardiology for atrial fibrillation >1.5 years ago. -Continue holding metoprolol, would recommend against restarting this -Continue amiodarone 200mg -On Eliquis -Resume Pradaxa as outpatient -Follow-up with cardiology as outpatient (5) Constipation: Last BM several days ago. She struggles with chronic constipation at home -Bowel regimen placed, scheduled Miralax and Colace -Encourage mobility as tolerated - adding Mag oxide for borderline low Mag level and to help w motility, (6) Type 2 diabetes mellitus treated with insulin: Has been hyperglycemic with resumption of diet. A1c 5.8. POC glucose 73 recorded during admission, no hypoglycemic episodes on reduced insulin dose. Takes metformin 1g and glargine 20units BID at home. -Continue glargine, increased to 15 units BID+ SSI -Maintain blood glucose within 100-180 range -rn diabetes educator consulted, recommend CGM and f/u as outpatient (7) Anxiety: Impression: Well controlled on duloxetine 80mg, clonazepam 0.5mg at nighttime. (8) Hyponatremia: Impression: Resolved. Print Language: Zambian Patient Instructions: Surg Dc Stand Alone Forms: SNF Discharge Follow-up Care: DEVIN FRIEDMAN DO [Primary Care Provider, Family Practice] Wagner Lou DO [Provider Admit Priv/Credential, Orthopedics] - 05/21/25 Referral Note: post op XR and incision check/staple removal Report called to and time (if no answer, doc. time of each call attempted): [facility]. Vitals documented within 30 minutes of discharge?: Yes (Yes)"
[2025-05-12 05:50] LABS: HCT - HEMATOCRIT 32.9 % (37.0-47.0); HGB - HEMOGLOBIN 10.6 g/dL (12.0-16.0); MEAN PLATELET VOLUME 10.1 fL (7.9-10.8); NRBC ABSOLUTE COUNT (AUTO) 0.00 x10^3/uL; NUCLEATED RED BLOOD CELLS AUTO 0.0 /100WBC; PLT - PLATELET COUNT 240 10^3/uL (130-450); RED CELL DISTRIBUTION WIDTH 14.5 % (12.0-15.0)
[2025-05-12 06:06] LABS: BUN - BLOOD UREA NITROGEN 9.0 mg/dL (6-20); CARBON DIOXIDE - CO2 30.0 mmol/L (21-32); CREATININE 0.7 mg/dL (0.6-1.3); GFR - MDRD 84.0 (>89)
[2025-05-12 10:15] VITALS: BP 160/78; TEMP 97.5; O2SAT 97
== END 2025-05-12 10:05 | DRG 481 ==
LOC: ED 16:06 → MS2 17:30
PROVIDERS: ADMIT Nurse Practitioner Acute Care; ATTEND Nurse Practitioner Acute Care
DX: Z79.01 Long term (current) use of anticoagulants; R42 Dizziness and giddiness; Z79.84 Long term (current) use of oral hypoglycemic drugs; Z79.4 Long term (current) use of insulin; E11.65 Type 2 diabetes mellitus with hyperglycemia; F41.9 Anxiety disorder, unspecified; W19.XXXA Unspecified fall, initial encounter; R55 Syncope and collapse; E87.1 Hypo-osmolality and hyponatremia; M54.9 Dorsalgia, unspecified; M25.561 Pain in right knee; Z66 Do not resuscitate; Z79.899 Other long term (current) drug therapy; M54.2 Cervicalgia; S72.091A Other fracture of head and neck of right femur, initial encounter for closed fracture; K59.09 Other constipation; R25.1 Tremor, unspecified; R51.9 Headache, unspecified; I48.20 Chronic atrial fibrillation, unspecified; Z11.52 Encounter for screening for COVID-19